=== PATIENT | female | born 1965 | race African-American/Black ===

== ENCOUNTER 2019-09-03 14:21 | Emergency (ER) | payer SELFPAY ==
[~2019-09-03] VITALS: Ht 160 cm; Wt 82.0 kg
[2019-09-03] MEDS ORDERED: fentaNYL INJECTION 100 MCG/2 ML AMP IVP STA (14:42)
[2019-09-03] MEDS ORDERED: HYDROcodone/APAP 7.5 MG/325 MG (LORTAB, LORCET PLUS) TABLET PO STA (14:50)
[2019-09-03 14:55] VITALS: BP 156/75
--- NOTE | 2019-09-03 15:01 | ED Chest Pain ---
General Chief Complaint: Chest Pain Stated Complaint: CHEST PAIN Source: patient, EMS Exam Limitations: no limitations History of Present Illness Date Seen by Provider: Sep 03, 2019 Time Seen by Provider: 14:22 Initial Comments Here with report of reproducible anterior chest wall pain that has been going on for a few hours. Arrives by EMS. Apparently it has been getting progressively worse and unrelenting. States that she's been going through a lot of stressors. She just moved here from [place] and she has the additional stressor that she is unable to get all of her meds refilled. She was able to get the medical coverage meds filled but her pain meds including gabapentin and hydrocodone are left on filled until her records are received and approved. Does have history of atrial fibrillation and is on Xarelto and does have that. Currently not in atrial fibrillation. Timing/Duration: 4-6 hours, getting worse Severity/Quality: moderate Location: central Radiation: shoulders, epigastric Activities at Onset: emotional stress Prior CP/Workup: other (workup for atrial fibrillation at outside facility) Modifying Factors: improves with rest ASA po EP TECH: Yes NTG SL EP TECH: No Associated Symptoms: No abdominal pain; back pain, fatigue; No fever/chills, No nausea/vomiting, No shortness of breath Allergies and Home Medications Allergies Coded Allergies: morphine (Verified Allergy, Unknown, 09/03/19) tramadol (Verified Allergy, Unknown, 09/03/19) Patient Home Medication List Home Medication List Reviewed: Yes Review of Systems Review of Systems Constitutional: see HPI; No chills, No fever EENTM: No Symptoms Reported Respiratory: No Symptoms Reported Cardiovascular: See HPI, Chest Pain; Denies Edema Gastrointestinal: Denies Diarrhea, Denies Vomiting Genitourinary: No Symptoms Reported Musculoskeletal: see HPI, back pain, muscle pain, neck pain Skin: no symptoms reported Psychiatric/Neurological: Anxiety; Denies Headache All Other Systems Reviewed Negative Unless Noted: Yes Past Wbegbal-Gquxzy-Fabxkb Hx Past Med/Social Hx: Reviewed Nursing Past Med/Soc Hx Patient Social History Alcohol Use: Denies Use Recreational Drug Use: No Smoking Status: Current Everyday Smoker Past Medical History Surgeries: Yes Abdominal, Orthopedic Respiratory: No Cardiac: Yes Hypertension, Irregular Heartbeat Gastrointestinal: Yes Psychosocial: Yes Family Medical History Reviewed Nursing Family Hx Physical Exam Vital Signs Vital Signs - First Documented 09/03/19 14:55 Temp 36.7 Pulse 70 Resp 16 B/P (MAP) 156/75 (102) Pulse Ox 100 Capillary Refill : Height, Weight, BMI Height: '" Weight: lbs. oz. kg; BMI Method: General Appearance: WD/WN, Anxious HEENT: PERRL/EOMI, Pharynx Normal Neck: Normal Inspection, Non Tender Respiratory: Lungs Clear, Normal Breath Sounds, Other (reproducible anterior chest wall pain) Cardiovascular: Regular Rate, Rhythm, No Murmur Gastrointestinal: Non Tender, Soft Extremity: Normal Range of Motion, Non Tender Neurologic/Psychiatric: Alert, Oriented x3 Skin: Normal Color, Warm/Dry Progress/Results/Core Measures Results/Orders Lab Results Laboratory Tests Test 09/03/19 15:15 Range/Units White Blood Count 6.0 4.3-11.0 10^3/uL Red Blood Count 4.11 L 4.35-5.85 10^6/uL Hemoglobin 12.4 11.5-16.0 G/DL Hematocrit 38 35-52 % Mean Corpuscular Volume 93 80-99 FL Mean Corpuscular Hemoglobin 30 25-34 PG Mean Corpuscular Hemoglobin Concent 33 32-36 G/DL Red Cell Distribution Width 14.0 10.0-14.5 % Platelet Count 268 130-400 10^3/uL Mean Platelet Volume 10.6 H 7.4-10.4 FL Neutrophils (%) (Auto) 31 L 42-75 % Lymphocytes (%) (Auto) 56 H 12-44 % Monocytes (%) (Auto) 9 0-12 % Eosinophils (%) (Auto) 3 0-10 % Basophils (%) (Auto) 1 0-10 % Neutrophils # (Auto) 1.9 1.8-7.8 X 10^3 Lymphocytes # (Auto) 3.3 1.0-4.0 X 10^3 Monocytes # (Auto) 0.6 0.0-1.0 X 10^3 Eosinophils # (Auto) 0.2 0.0-0.3 10^3/uL Basophils # (Auto) 0.0 0.0-0.1 10^3/uL Prothrombin Time 15.0 H 12.2-14.7 SEC INR Comment 1.1 0.8-1.4 Activated Partial Thromboplast Time 35 24-35 SEC Sodium Level 141 135-145 MMOL/L Potassium Level 2.9 L 3.6-5.0 MMOL/L Chloride Level 106 98-107 MMOL/L Carbon Dioxide Level 27 21-32 MMOL/L Anion Gap 8 5-14 MMOL/L Blood Urea Nitrogen 8 7-18 MG/DL Creatinine 0.77 0.60-1.30 MG/DL Estimat Glomerular Filtration Rate > 60 BUN/Creatinine Ratio 10 Glucose Level 96 70-105 MG/DL Calcium Level 8.8 8.5-10.1 MG/DL Corrected Calcium 8.9 8.5-10.1 MG/DL Magnesium Level 1.9 1.6-2.4 MG/DL Total Bilirubin 0.5 0.1-1.0 MG/DL Aspartate Amino Transf (AST/SGOT) 13 5-34 U/L Alanine Aminotransferase (ALT/SGPT) 12 0-55 U/L Alkaline Phosphatase 106 40-136 U/L Myoglobin 23.4 10.0-92.0 NG/ML Troponin I < 0.028 <0.028 NG/ML Total Protein 6.3 L 6.4-8.2 GM/DL Albumin 3.9 3.2-4.5 GM/DL My Orders Orders - NAHUN BOWEN MD Cbc With Automated Diff (09/03/19 14:41) Magnesium (09/03/19 14:41) Chest 1 View, Ap/Pa Only (09/03/19 14:41) Ekg Tracing (09/03/19 14:41) Cardiac Profile 1 (09/03/19 14:41) Comprehensive Metabolic Panel (09/03/19 14:41) Myoglobin Serum (09/03/19 14:41) Protime With Inr (09/03/19 14:41) Partial Thromboplastin Time (09/03/19 14:41) O2 (09/03/19 14:41) Monitor-Rhythm Ecg Trace Only (09/03/19 14:41) Lipid Panel (09/04/19 06:00) Ed Iv/Invasive Line Start (09/03/19 14:41) Hydrocodone/Apap 7.5/325 Tab (Lortab 7. (09/03/19 14:50) Vital Signs/I&O 09/03/19 14:55 Temp 36.7 Pulse 70 Resp 16 B/P (MAP) 156/75 (102) Pulse Ox 100 Progress Progress Note : Progress Note Seen and evaluated. IV, labs, EKG and chest x-ray ordered. Patient did receive aspirin via EMS. Fentanyl 50 g IV ordered. Monitor patient. 1500: Unable to get IV access so we will go ahead and just do blood draw. Patient does not want to attempt further IV access at this point. Hydrocodone 7.5 one tab by mouth given. Monitor patient. 1711: No acute findings. Patient is much better after the hydrocodone. Discharged home with return precautions. Patient verbalize understanding instructions and agreement with plan. Initial ECG Impression Date: Sep 03, 2019 Initial ECG Impression Time: 14:49 Initial ECG Rate: 62 Initial ECG Rhythm: Normal Sinus Initial ECG Comparisson: No Previous ECG Available Comment Sinus rhythm with PVC. No evidence of ST elevation NE. Normal axis. Interpreted by me. Diagnostic Imaging Diagonstic Imaging: Xray Plain Films/CT/US/NM/MRI: chest Comments NAME: YUMI SQUIRES [facility] REC#: [id number] PT STATUS: REG ER : 1965 PHYSICIAN: NAHUN BOWEN MD ADMIT DATE: 09/03/19/ER Signed Date of Exam: 09/03/19 CHEST 1 VIEW, AP/PA ONLY EXAMINATION: Portable erect AP chest at 3:02 p.m. INDICATION: Chest pain. COMPARISON: There are no prior studies available for comparison. FINDINGS: The heart is enlarged. The central pulmonary vascularity is somewhat prominent, but there is no evidence of overt failure or pneumonia. There is no significant pleural effusion identified. The mediastinum is not widened. The osseous structures are intact. The distal right clavicle has been resected previously. IMPRESSION: There is cardiomegaly, but there is no evidence for an acute cardiopulmonary abnormality. Dictated by: Dictated on workstation # [id number] Dict: 09/03/19 1510 Trans: 09/03/198 Interpreted by: SHYANN PRECIADO MD Electronically signed by: SHYANN PRECIADO MD 09/03/19 3768 Departure Impression Primary Impression: Chest pain Qualified Codes: R07.9 - Chest pain, unspecified Additional Impression: Back pain Qualified Codes: M54.5 - Low back pain; G89.29 - Other chronic pain Disposition: 01 HOME, SELF-CARE Condition: Stable Departure-Patient Inst. Decision time for Depature: 17:12 Referrals: [facility] Patient Instructions: Chest Pain (DC), Low Back Pain (DC) Add. Discharge Instructions: All discharge instructions reviewed with patient and/or family. Voiced understanding. Take medications as directed. It is very important that you obtain local physician and prescriptions. You may take ibuprofen 600 mg every 8 hours as needed for pain as well as she can tolerate that. If you're not taking the prescribed pain medicine, you may take Tylenol/acetaminophen 1000 mg every 8 hours as needed for pain. Return for worse pain, fever, vomiting, weakness, breathing problems or other concerns as needed. Scripts Hydrocodone Bit/Acetaminophen (LORTAB 7.5 MG TABLET) 1 Ea Tablet 1 EACH PO Q6H, #12 TAB 0 Refills Prov: NAHUN BOWEN MD 09/03/19 NAHUN BOWEN MD Sep 03, 2019 15:01
--- NOTE | 2019-09-03 15:15 | Diagnostic Imaging Report ---
EXAMINATION: Portable erect AP chest at 3:02 p.m. INDICATION: Chest pain. COMPARISON: There are no prior studies available for comparison. FINDINGS: The heart is enlarged. The central pulmonary vascularity is somewhat prominent, but there is no evidence of overt failure or pneumonia. There is no significant pleural effusion identified. The mediastinum is not widened. The osseous structures are intact. The distal right clavicle has been resected previously. IMPRESSION: There is cardiomegaly, but there is no evidence for an acute cardiopulmonary abnormality. Dictated by: Dictated on workstation # [id number]
[2019-09-03 15:33] LABS: BASOPHILS % (AUTO) 1 % (0-10); EOSINOPHILS # (AUTO) 0.2 10^3/uL (0.0-0.3); EOSINOPHILS % (AUTO) 3 % (0-10); HEMATOCRIT 38 % (35-52); HEMOGLOBIN 12.4 G/DL (11.5-16.0); LYMPHOCYTES # (AUTO) 3.3 X 10^3 (1.0-4.0); LYMPHOCYTES % (AUTO) 56 % (12-44); MEAN CORPUSCULAR HEMOGLOBIN 30 PG (25-34); MEAN CORPUSCULAR HGB CONC 33 G/DL (32-36); MEAN CORPUSCULAR VOLUME 93 FL (80-99); MEAN PLATELET VOLUME 10.6 FL (7.4-10.4); MONOCYTES # (AUTO) 0.6 X 10^3 (0.0-1.0); MONOCYTES % (AUTO) 9 % (0-12); NEUTROPHILS # (AUTO) 1.9 X 10^3 (1.8-7.8); NEUTROPHILS % (AUTO) 31 % (42-75); PLATELET COUNT 268 10^3/uL (130-400)
[2019-09-03 15:48] LABS: INR 1.1 (0.8-1.4)
[2019-09-03 15:53] LABS: ALANINE AMINOTRANSFERASE 12 U/L (0-55); ALBUMIN 3.9 GM/DL (3.2-4.5); ALKALINE PHOSPHATASE 106 U/L (40-136); BILIRUBIN,TOTAL 0.5 MG/DL (0.1-1.0); BUN/CREATININE RATIO 10; CALCIUM 8.8 MG/DL (8.5-10.1); CARBON DIOXIDE 27 MMOL/L (21-32); CHLORIDE 106 MMOL/L (98-107); CREATININE SERUM 0.77 MG/DL (0.60-1.30); GFR ESTIMATED > 60; GLUCOSE 96 MG/DL (70-105); MAGNESIUM 1.9 MG/DL (1.6-2.4); POTASSIUM 2.9 MMOL/L (3.6-5.0); SODIUM 141 MMOL/L (135-145); TOTAL PROTEIN 6.3 GM/DL (6.4-8.2)
[2019-09-03] MEDS ORDERED: HYDR-34 PO (17:19)
== END 2019-09-03 17:28 | disposition home or self-care (01) ==
LOC: ER 14:23
DX: R07.89 Other chest pain (principal); M54.5 Low back pain; I48.91 Unspecified atrial fibrillation; I10 Essential (primary) hypertension; F17.200 Nicotine dependence, unspecified, uncomplicated; Z79.01 Long term (current) use of anticoagulants; Z88.5 Allergy status to narcotic agent
CPT/HCPCS: 36415; 71045; 80053; 83735; 83874; 84484; 85025; 85610; 85730; 93005; 93041

== ENCOUNTER → 2019-10-04 | Outpatient (CLI) | payer MEDICARE, MEDICAID ==
[~2019-10-04] MED LIST: HYDR-34 PO
== END ==
LOC: EDBD → CARD 12:49
PROVIDERS: ATTEND Nurse Practitioner Primary Care
DX: I51.7 Cardiomegaly (principal); I34.0 Nonrheumatic mitral (valve) insufficiency; I48.0 Paroxysmal atrial fibrillation; I10 Essential (primary) hypertension
CPT/HCPCS: 93306

== ENCOUNTER → 2019-12-31 | Outpatient (CLI) | payer MEDICAID, MEDICARE ==
[~2019-12-31] VITALS: Ht 161 cm; Wt 83.0 kg
[~2019-12-31] MED LIST changes: +AMIT25TA9 PO; +AMLO10TA7 PO; +ASPI-983 PO; +CARB10DR5 OU; +CATHETER FLUSH 10 ML SYR IV PRN; +CLIN300C11 PO; +DULO30CA49 PO; +GABA-488 PO; +HYDR-3816 PO; +ISOS30TA3 PO; +METH5TAB5 PO; +REGADENOSON 0.4 MG/5 ML SYR (LEXISCAN) IV ONE; +RIVA20TA PO; +ROSU5TAB13 PO
--- NOTE | 2020-01-02 19:07 | STRESS TEST ---
DATE OF SERVICE: 12/31/2019 RESTING AND POST REGADENOSON TECHNETIUM-99M TETROFOSMIN SPECT CT IMAGING ORDERING PHYSICIAN: Dr. Lopez. PRIMARY PHYSICIAN: [facility]. CLINICAL DIAGNOSES: Shortness of breath, chest discomfort. Baseline images were carried out after injection of 10.38 mCi of technetium-99m Tetrofosmin. This was followed by 0.4 mg regadenoson and 28.7 mCi of technetium-99m Tetrofosmin for stress imaging. The electrocardiogram showed sinus rhythm at baseline. It did not change significantly with regadenoson infusion. The patient tolerated the procedure well. Review of images at rest and following stress indicate breast attenuation artifact both at rest and following regadenoson infusion. In addition, there appears to be a minimal transient apical perfusion defect. Gated images show normal global left ventricular systolic function, normal regional wall motion. Left ventricular ejection fraction is calculated to be 72%. Left ventricular end diastolic volume 63 mL. TID is absent (1.02). CONCLUSIONS: 1. This study suggests a minimal amount of apical ischemia. 2. Normal regional wall motion. 3. Normal global left ventricular systolic function with ejection fraction of 72%. Job ID: [id number] DocumentID: [id number] Dictated Date: 01/02/2020 17:21:48 Manager Agency Date: 01/02/2020 19:06:58 Dictated By: JOCELYN LOPEZ MD, MA, FACP, FACC, MTDD
== END ==
LOC: CARD 06:50
PROVIDERS: ATTEND Internal Medicine Cardiovascular Disease
DX: I10 Essential (primary) hypertension (principal); G51.0 Bell's palsy; Z72.0 Tobacco use; R06.02 Shortness of breath; R07.89 Other chest pain
CPT/HCPCS: 78452; 93017; 93225; 93226

== ENCOUNTER 2020-01-03 02:05 | Inpatient (IN) | payer MEDICARE, MEDICAID ==
[2020-01-03] VITALS (7 sets, daily range): BP systolic 141–193; BP diastolic 66–90
[~2020-01-03] VITALS: Ht 160 cm; Wt 91.4 kg
[~2020-01-03 02:05] MED LIST changes: -AMIT25TA9 PO; -AMLO10TA7 PO; -ASPI-983 PO; -CARB10DR5 OU; -CATHETER FLUSH 10 ML SYR IV PRN; -CLIN300C11 PO; -DULO30CA49 PO; -GABA-488 PO; -HYDR-3816 PO; -ISOS30TA3 PO; -METH5TAB5 PO; -REGADENOSON 0.4 MG/5 ML SYR (LEXISCAN) IV ONE; -RIVA20TA PO; -ROSU5TAB13 PO
[2020-01-03] MEDS ORDERED: NS IV 1000 ML 1,000 ML IV SCH (02:15)
[2020-01-03] MEDS ORDERED: fentaNYL INJECTION 100 MCG/2 ML AMP IVP ONE ×2 (02:15→03:00)
--- NOTE | 2020-01-03 02:24 | ED Abdominal Pain ---
General Chief Complaint: Abdominal/GI Problems Stated Complaint: ABD PAIN Source of Information: Patient, EMS Exam Limitations: No Limitations History of Present Illness Date Seen by Provider: Jan 03, 2020 Time Seen by Provider: 02:03 Initial Comments The patient does present to the ER by EMS with chief complaint that about 10:00 last night she started to experience some pain on her left side but all over in her abdomen. She is not having any back or flank pain that is new. She says she is not been a little bowel movement for the past 2 or 3 days so she took some MiraLAX and says she feels like her guts are boiling but she has not been able to pass anything. She does have a history of hysterectomy, appendectomy, cholecystectomy and a laparoscopic adhesiolysis. She denies a history of bowel obstruction. She's not having any fevers or chills. She had some nausea earlier but none presently. EMS did not give her anything for pain or nausea. She says her pain right now is about a 9 out of 10. And worse with movement. She has a history of 2 heart attacks but no stents. She's not on blood thinners. Allergies and Home Medications Allergies Coded Allergies: morphine (Verified Allergy, Unknown, 09/03/19) tramadol (Verified Allergy, Unknown, 09/03/19) Home Medications Hydrocodone Bit/Acetaminophen 1 Ea Tablet, 1 EACH PO Q6H Prescribed by: NAHUN BOWEN on 09/03/19 5599 Patient Home Medication List Home Medication List Reviewed: Yes Review of Systems Review of Systems Constitutional: No chills, No diaphoresis EENTM: No Blurred Vision, No Double Vision Respiratory: Denies Cough, Denies Shortness of Air Cardiovascular: Denies Chest Pain, Denies Edema Gastrointestinal: See HPI, Abdominal Pain; Denies Constipated, Denies Diarrhea Genitourinary: Denies Burning, Denies Discharge Musculoskeletal: No back pain, No joint pain Skin: No pruritus, No rash Psychiatric/Neurological: Denies Headache, Denies Numbness, Denies Paresthesia All Other Systems Reviewed Negative Unless Noted: Yes Past Hkreqey-Cxfwvn-Pugwfk Hx Patient Social History Alcohol Use: Denies Use Recreational Drug Use: No Smoking Status: Current Everyday Smoker Type Used: Cigarettes Recent Foreign Travel: No Contact w/Someone Who Travel: No Recent Hopitalizations: No Physical Abuse: No Sexual Abuse: No Mistreated: No Fear: No Immunizations Up To Date Tetanus Booster (TDap): Unknown Seasonal Allergies Seasonal Allergies: No Past Medical History Surgeries: Yes Abdominal, Orthopedic, Tubal Ligation Respiratory: No Cardiac: Yes Atrial Fibrillation, Hypertension, Irregular Heartbeat Neurological: Yes (bells palsy) 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 oz. kg; 32.02 BMI Method: General Appearance: WD/WN, no apparent distress HEENT: PERRL/EOMI, pharynx normal Neck: full range of motion, supple, normal inspection Respiratory: lungs clear, normal breath sounds, no respiratory distress, no accessory muscle use Cardiovascular: normal peripheral pulses, regular rate, rhythm Peripheral Pulses: 2+ Radial Pulses (R), 2+ Radial Pulses (L) Gastrointestinal: normal bowel sounds, guarding; No rebound; tenderness, other (mesenteric signs) Extremities: normal inspection, no pedal edema, normal capillary refill Back: normal inspection, no vertebral tenderness, CVA tenderness (R), CVA tenderness (L) Neurologic/Psychiatric: alert, normal mood/affect, oriented x 3 Skin: normal color, warm/dry Focused Exam Lactate Level 01/03/20 02:45: Lactic Acid Level 0.91 Lactic Acid Level Laboratory Tests Test 01/03/20 02:45 Lactic Acid Level 0.91 MMOL/L (0.50-2.00) Progress/Results/Core Measures Results/Orders Lab Results Laboratory Tests Test 01/03/20 02:16 01/03/20 02:45 Range/Units Urine Color YELLOW Urine Clarity CLEAR Urine pH 6.0 5-9 Urine Specific [place] 1.020 1.016-1.022 Urine Protein NEGATIVE NEGATIVE Urine Glucose (UA) NEGATIVE NEGATIVE Urine Ketones NEGATIVE NEGATIVE Urine Nitrite NEGATIVE NEGATIVE Urine Bilirubin NEGATIVE NEGATIVE Urine Urobilinogen 0.2 < = 1.0 MG/DL Urine Leukocyte Esterase NEGATIVE NEGATIVE Urine RBC (Auto) TRACE-I NEGATIVE Urine RBC 0-2 /HPF Urine WBC NONE /HPF Urine Squamous Epithelial Cells 0-2 /HPF Urine Crystals NONE /LPF Urine Bacteria NEGATIVE /HPF Urine Casts NONE /LPF Urine Mucus MODERATE H /LPF Urine Culture Indicated NO White Blood Count 8.2 4.3-11.0 10^3/uL Red Blood Count 4.45 4.35-5.85 10^6/uL Hemoglobin 13.3 11.5-16.0 G/DL Hematocrit 40 35-52 % Mean Corpuscular Volume 90 80-99 FL Mean Corpuscular Hemoglobin 30 25-34 PG Mean Corpuscular Hemoglobin Concent 33 32-36 G/DL Red Cell Distribution Width 15.2 H 10.0-14.5 % Platelet Count 287 130-400 10^3/uL Mean Platelet Volume 10.1 7.4-10.4 FL Neutrophils (%) (Auto) 57 42-75 % Lymphocytes (%) (Auto) 31 12-44 % Monocytes (%) (Auto) 9 0-12 % Eosinophils (%) (Auto) 3 0-10 % Basophils (%) (Auto) 0 0-10 % Neutrophils # (Auto) 4.7 1.8-7.8 X 10^3 Lymphocytes # (Auto) 2.6 1.0-4.0 X 10^3 Monocytes # (Auto) 0.7 0.0-1.0 X 10^3 Eosinophils # (Auto) 0.2 0.0-0.3 10^3/uL Basophils # (Auto) 0.0 0.0-0.1 10^3/uL Sodium Level 139 135-145 MMOL/L Potassium Level 3.7 3.6-5.0 MMOL/L Chloride Level 106 98-107 MMOL/L Carbon Dioxide Level 20 L 21-32 MMOL/L Anion Gap 13 5-14 MMOL/L Blood Urea Nitrogen 14 7-18 MG/DL Creatinine 0.86 0.60-1.30 MG/DL Estimat Glomerular Filtration Rate > 60 BUN/Creatinine Ratio 16 Glucose Level 121 H 70-105 MG/DL Lactic Acid Level 0.91 0.50-2.00 MMOL/L Calcium Level 9.4 8.5-10.1 MG/DL Corrected Calcium 9.0 8.5-10.1 MG/DL Total Bilirubin 0.5 0.1-1.0 MG/DL Aspartate Amino Transf (AST/SGOT) 11 5-34 U/L Alanine Aminotransferase (ALT/SGPT) 10 0-55 U/L Alkaline Phosphatase 114 40-136 U/L Total Protein 7.4 6.4-8.2 GM/DL Albumin 4.5 3.2-4.5 GM/DL Lipase 76 8-78 U/L My Orders Orders - JANES OSHEA Ct Abdomen/Pelvis W (01/03/20 02:15) Ed Iv/Invasive Line Start (01/03/20 02:15) Ns Iv 1000 Ml (Sodium Chloride 0.9%) (01/03/20 02:15) Fentanyl Injection (Sublimaze Injection (01/03/20 02:15) Cbc With Automated Diff (01/03/20 02:15) Comprehensive Metabolic Panel (01/03/20 02:15) Lipase (01/03/20 02:15) Ua Culture If Indicated (01/03/20 02:15) Hyoscyamine Sl Tablet (Levsin Sl Tablet) (01/03/20 02:45) Fentanyl Injection (Sublimaze Injection (01/03/20 03:00) Lactic Acid Analyzer (01/03/20 03:00) Medications Given in ED Current Medications Medications Dose Ordered Sig/Willian Route Start Time Stop Time Status Last Admin Dose Admin Fentanyl Citrate 50 mcg ONCE ONCE IVP 01/03/20 02:15 01/03/20 02:18 DC 01/03/20 02:48 50 MCG Fentanyl Citrate 100 mcg ONCE ONCE IVP 01/03/20 03:00 01/03/20 03:01 DC 01/03/20 03:03 100 MCG Hyoscyamine Sulfate 0.125 mg ONCE ONCE PO 01/03/20 02:45 01/03/20 02:46 DC 01/03/20 02:44 0.125 MG Vital Signs/I&O 01/03/20 02:12 Temp 37.2 Pulse 62 Resp 20 B/P (MAP) 128/68 (88) Pulse Ox 99 O2 Delivery Room Air Progress Progress Note : Time: 02:27 Progress Note 50 g of fentanyl, a liter fluids and a CT with IV contrast if possible. Labs to include lipase and a urinalysis. Diagnostic Imaging Diagonstic Imaging: CT (with IV contrast) Plain Films/CT/US/NM/MRI: abdomen, pelvis Comments Abnormal small bowel in the lower abdomen and upper pelvis suspicious for a developing obstruction. There is a small bowel loop demonstrating feculent appearing material closely applied to the anterior abdominal wall in the infraumbilical abdomen. In this region there is calcification along the midline of the abdominal wall. The patient is post hysterectomy. The findings could represent adhesions. Diverticulosis without diverticulitis. Reviewed: [facility] Reviewed by Me Departure Communication (Admissions) Time/Spoke to Admitting Phy: 04:50 Discussed the case and imaging with Dr. Elkins and she agrees to admit the patient with Dr. Espino, General Surgery consultation. Time/Spoke to Consulting Phy: 04:55 Discussed case and imaging with Dr. Espino and he agrees to consult on the patient. Impression Primary Impression: Small bowel obstruction due to adhesions Disposition: ADMITTED INPATIENT Condition: Stable Admissions Decision to Admit Reason: Admit from ER (General) Decision to Admit/Date: Jan 03, 2020 Time/Decision to Admit Time: 04:40 Departure-Patient Inst. Referrals: [facility] (PCP) Primary Care Physician MERON ZEPEDA APRN (Family) Primary Care Physician JANES OSHEA Jan 03, 2020 02:24
[2020-01-03 02:32] LABS: BILIRUBIN,URINE NEGATIVE (NEGATIVE); CLARITY,URINE CLEAR; COLOR,URINE YELLOW; GLUCOSE, URINE (UA) NEGATIVE (NEGATIVE); KETONES,URINE NEGATIVE (NEGATIVE); LEUKOCYTE ESTERASE ,URINE NEGATIVE (NEGATIVE); NITRITE,URINE NEGATIVE (NEGATIVE); PROTEIN,URINE NEGATIVE (NEGATIVE)
[2020-01-03 02:41] LABS: RBC,URINE 0-2 /HPF
[2020-01-03 02:42] LABS: BACTERIA,URINE NEGATIVE /HPF; SQUAMOUS EPITHELIAL CELL,UR 0-2 /HPF
[2020-01-03] MEDS ORDERED: HYOSCYAMINE 0.125 MG (LEVSIN) TAB PO ONE (02:45)
[2020-01-03 02:58] LABS: BASOPHILS % (AUTO) 0 % (0-10); EOSINOPHILS # (AUTO) 0.2 10^3/uL (0.0-0.3); EOSINOPHILS % (AUTO) 3 % (0-10); HEMATOCRIT 40 % (35-52); HEMOGLOBIN 13.3 G/DL (11.5-16.0); LYMPHOCYTES # (AUTO) 2.6 X 10^3 (1.0-4.0); LYMPHOCYTES % (AUTO) 31 % (12-44); MEAN CORPUSCULAR HEMOGLOBIN 30 PG (25-34); MEAN CORPUSCULAR HGB CONC 33 G/DL (32-36); MEAN CORPUSCULAR VOLUME 90 FL (80-99); MEAN PLATELET VOLUME 10.1 FL (7.4-10.4); MONOCYTES # (AUTO) 0.7 X 10^3 (0.0-1.0); MONOCYTES % (AUTO) 9 % (0-12); NEUTROPHILS # (AUTO) 4.7 X 10^3 (1.8-7.8); NEUTROPHILS % (AUTO) 57 % (42-75); PLATELET COUNT 287 10^3/uL (130-400); RED CELL DISTRIBUTION WIDTH 15.2 % (10.0-14.5); WHITE BLOOD COUNT 8.2 10^3/uL (4.3-11.0)
[2020-01-03 03:19] LABS: ALANINE AMINOTRANSFERASE 10 U/L (0-55); ALBUMIN 4.5 GM/DL (3.2-4.5); ALKALINE PHOSPHATASE 114 U/L (40-136); BILIRUBIN,TOTAL 0.5 MG/DL (0.1-1.0); BUN/CREATININE RATIO 16; CALCIUM 9.4 MG/DL (8.5-10.1); CARBON DIOXIDE 20 MMOL/L (21-32); CHLORIDE 106 MMOL/L (98-107); CREATININE SERUM 0.86 MG/DL (0.60-1.30); GFR ESTIMATED > 60; GLUCOSE 121 MG/DL (70-105); LIPASE 76 U/L (8-78); POTASSIUM 3.7 MMOL/L (3.6-5.0); SODIUM 139 MMOL/L (135-145); TOTAL PROTEIN 7.4 GM/DL (6.4-8.2)
[2020-01-03] MEDS ORDERED: HYDROmorphone 2 MG/ML VIAL (DILAUDID) IV ONE (05:00)
--- NOTE | 2020-01-03 05:20 | NUR ---
YUMI SQUIRES admitted to room 431-1, with an admitting diagnosis of small bowel obstruction, on 01/03/20 from ER via bed, accompanied by er staff. YUMI SQUIRES introduced to surroundings, call light, bed controls, phone, TV, temperature control, lights, meal times, smoking policy, visitor policy, side rail policy, bathrooms and showers. Patient Rights given to patient in the handbook. YUMI SQUIRES verbalizes understanding that [facility] is not responsible for the loss or damage to any personal effects or valuables that are kept in the patients possession during their hospitalization.
[2020-01-03] MEDS ORDERED: 1/2 NS W/KCL 20 MEQ/L 1,000 ML IV ONE (05:30)
[2020-01-03] MEDS: 1/2 NS W/KCL 20 MEQ/L 1,000 ML IV SCH ×4 (05:40→22:42)
[2020-01-03] MEDS ORDERED: fentaNYL INJECTION 100 MCG/2 ML AMP IV PRN ×2 (06:15)
--- NOTE | 2020-01-03 06:44 | Diagnostic Imaging Report ---
PROCEDURE: CT abdomen and pelvis with contrast. TECHNIQUE: Multiple contiguous axial images were obtained through the abdomen and pelvis after administration of intravenous contrast. Auto Exposure Controls were utilized during the CT exam to meet ALARA standards for radiation dose reduction. All CT scans use one or more of the following dose optimizing techniques: automated exposure control, MA and/or KvP adjustment based on a patient size and exam type, or iterative reconstruction. INDICATION: Abdominal pain. COMPARISON: None. FINDINGS: Lung bases are clear. The gallbladder is nonvisualized and presumed surgically absent. Otherwise, solid organs and vascular structures are unremarkable. Dilated small bowel loops are seen within the left mid abdomen and pelvis containing air-fluid levels. The distal small bowel is decompressed. There is likely a transition point in the region of the pelvis, possibly from adhesions. There is no free air or free fluid. There is mild constipation throughout the colon without overt obstruction. Diverticulosis of sigmoid colon is present without diverticulitis. The urinary bladder is unremarkable. The uterus is surgically absent. There is no abscess. Osseous structures are age-appropriate. IMPRESSION: 1. Early small bowel obstruction with transition point likely within the pelvis. The uterus is surgically absent. 2. Diverticulosis of sigmoid colon without diverticulitis. 3. No free air, free fluid or abscess. Agree with preliminary report. Dictated by: Dictated on workstation # [id number]
[2020-01-03] MEDS: ONDANSETRON 4 MG/2 ML (SDV) Z0FRAN IV PRN ×3 (08:36→19:54)
[2020-01-03] MEDS: PANTOPRAZOLE 40 MG (PROTONIX) VIAL IV SCH (08:36)
[2020-01-03] MEDS ORDERED: ENOXAPARIN 40 MG/0.4 ML (LOVENOX) SYR SC SCH (09:00)
--- NOTE | 2020-01-03 09:21 | Consultation - Surgery ---
[facility] 01/03/20 0921: History of Present Illness History of Present Illness Patient Consulted On(chelsey/time) 01/03/20 09:15 Date Seen by Provider: Jan 03, 2020 Time Seen by Provider: 07:30 History of Present Illness CC: Abdominal Pain HPI: 64 yo female presented to the ED with increase in abdominal pain. Patient stated that she had similar symptoms 15 to 17 years ago and was diagnosed with Bowel obstruction secondary to adhesions. Pain started around 2200 last night in the lower quadrants. The pain is now located in the lower quadrants and the umbilicus. Describes the pain as sharp and aching. Comes and goes, Gets better with pain medication, but is worse with movement. Also has nausea. States that she had a small bowel movement yesterday. Allergies and Home Medications Allergies Coded Allergies: morphine (Verified Allergy, Unknown, 09/03/19) tramadol (Verified Allergy, Unknown, 09/03/19) Patient Home Medication List Home Medication List Reviewed: Yes (States she has a list in her wallet that has all her medications) Past Qlnfjgt-Uuyxyv-Rpfgmt Hx Patient Social History Alcohol Use: Denies Use Recreational Drug Use: No Smoking Status: Current Everyday Smoker (1/2 ppd) Type Used: Cigarettes Recent Foreign Travel: No Contact w/Someone Who Travel: No Recent Infectious Disease Expo: No Recent Hopitalizations: No Immunizations Up To Date Tetanus Booster (TDap): Unknown Date of Influenza Vaccine: Aug 10, 2019 Seasonal Allergies Seasonal Allergies: No Surgeries History of Surgeries: Yes Surgeries: Abdominal (states gallbladder and appendix were removed), 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 (partial hysterecctomy), Tubal Ligation Respiratory History of Respiratory Disorde: No Cardiovascular History of Cardiac Disorders: Yes Cardiac Disorders: Atrial Fibrillation, Heart Attack, Hypertension, Irregular Heartbeat Neurological History of Neurological Disord: 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) Neurological Disorders: Neuropathy Reproductive System : No [place] [facility] History: Tubal Ligation, Menopausal Genitourinary History of Genitourinary Disor: No Gastrointestinal History of Gastrointestinal Di: Yes (SBO 15 years ago) Musculoskeletal History of Musculoskeletal Dis: Yes Musculoskeletal Disorders: Rheumatoid Arthritis, Chronic Back Pain Endocrine History of Endocrine Disorders: Yes Endocrine Disorders: Hypothyroidsim HEENT History of HEENT Disorders: No Cancer History of Cancer: No Integumentary History of Skin or Integumenta: Yes (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 Does not know father) Family Medial History: Diabetes mellitus 19 MOTHER FH: heart disease 19 MOTHER Review of Systems-General Constitutional: chills; No fever EENTM: No ear pain, No eye pain, No throat pain Respiratory: cough, phlegm; No short of breath Cardiovascular: No chest pain, No palpitations Gastrointestinal: abdominal pain, constipation, nausea; No vomiting Genitourinary: No dysuria, No frequency Musculoskeletal: back pain, joint pain (Hands and KNees) Skin: No hx of skin cancer, No rash Psychiatric/Neurological: Numbness (In extremeties), Tingling (in extremities) Other No History of bruising or bleeding Physical Exam-General Problems Physical Exam Vital Signs Vital Signs - First Documented 01/03/20 02:12 Temp 37.2 Pulse 62 Resp 20 B/P (MAP) 128/68 (88) Pulse Ox 99 O2 Delivery Room Air Capillary Refill : Less Than 3 Seconds General Appearance: mild distress, obese Respiratory: chest non-tender, lungs clear, no respiratory distress, no accessory muscle use, decreased breath sounds Cardiovascular: regular rate, rhythm, no murmur Peripheral Pulses: 2+ Radial Pulses (R), 2+ Radial Pulses (L) Gastrointestinal: No soft; distended, guarding, tenderness (midline) Extremities: no pedal edema, no calf tenderness Neurologic/Psychiatric: alert, oriented x 3 Skin: normal color, warm/dry Data Review Labs Laboratory Tests 01/03/20 02:16: Urine Color YELLOW, Urine Clarity CLEAR, Urine pH 6.0, Urine Specific [place] 1.020, Urine Protein NEGATIVE, Urine Glucose (UA) NEGATIVE, Urine Ketones NEGATIVE, Urine Nitrite NEGATIVE, Urine Bilirubin NEGATIVE, Urine Urobilinogen 0.2, Urine Leukocyte Esterase NEGATIVE, Urine RBC (Auto) TRACE-I, Urine RBC 0-2, Urine WBC NONE, Urine Squamous Epithelial Cells 0-2, Urine Crystals NONE, Urine Bacteria NEGATIVE, Urine Casts NONE, Urine Mucus MODERATEH, Urine Culture Indicated NO 01/03/20 02:45: White Blood Count 8.2, Red Blood Count 4.45, Hemoglobin 13.3, Hematocrit 40, Mean Corpuscular Volume 90, Mean Corpuscular Hemoglobin 30, Mean Corpuscular Hemoglobin Concent 33, Red Cell Distribution Width 15.2H, Platelet Count 287, Mean Platelet Volume 10.1, Neutrophils (%) (Auto) 57, Lymphocytes (%) (Auto) 31, Monocytes (%) (Auto) 9, Eosinophils (%) (Auto) 3, Basophils (%) (Auto) 0, Neutrophils # (Auto) 4.7, Lymphocytes # (Auto) 2.6, Monocytes # (Auto) 0.7, Eosinophils # (Auto) 0.2, Basophils # (Auto) 0.0, Sodium Level 139, Potassium Level 3.7, Chloride Level 106, Carbon Dioxide Level 20L, Anion Gap 13, Blood Urea Nitrogen 14, Creatinine 0.86, Estimat Glomerular Filtration Rate > 60, BUN/Creatinine Ratio 16, Glucose Level 121H, Lactic Acid Level 0.91, Calcium Level 9.4, Corrected Calcium 9.0, Total Bilirubin 0.5, Aspartate Amino Transf (AST/SGOT) 11, Alanine Aminotransferase (ALT/SGPT) 10, Alkaline Phosphatase 114, Total Protein 7.4, Albumin 4.5, Lipase 76 Assessment/Plan Assessment/Plan Assessment/Plan abdominal pain Nausea Constipation SBO History of Adhesions and Bowel Obstruction Have the patient ambulate if tolerated. Symptomatic management at this time. Clinical Quality Measures DVT/VTE Risk/Contraindication: Risk Factor Score Per Nursin RFS Level Per Nursing on Admit: 4+=Very High TERENCE ESPINO DO 01/03/20 1403: History of Present Illness History of Present Illness Time Seen by Provider: 13:41 History of Present Illness Pt seen and examined, states pain is more than 10 out of 10. She describes severe crampy pain; "like labor pains and they cause my blood pressure to go up". Radiating throughout the abdomen. Denies vomiting. Pt is still having small BM's. Allergies and Home Medications Allergies Coded Allergies: morphine (Verified Allergy, Unknown, 09/03/19) tramadol (Verified Allergy, Unknown, 09/03/19) Patient Home Medication List Home Medication List Reviewed: Yes (States she has a list in her wallet that has all her medications) Past Ldiqfrc-Zwhtmj-Fidmgr Hx Patient Social History Alcohol Use: Denies Use Recreational Drug Use: No Surgeries History of Surgeries: Yes Respiratory History of Respiratory Disorde: No Cardiovascular History of Cardiac Disorders: Yes Genitourinary History of Genitourinary Disor: No Gastrointestinal History of Gastrointestinal Di: Yes (SBO 15 years ago) Musculoskeletal History of Musculoskeletal Dis: Yes Endocrine History of Endocrine Disorders: No HEENT History of HEENT Disorders: No Loss of Vision: Denies Hearing Impairment: Denies Cancer History of Cancer: No Psychosocial History of Psychiatric Problem: No Family Medical History Significant Family History: Heart Disease, Diabetes (Mother) Family Medial History: Diabetes mellitus 19 MOTHER FH: heart disease 19 MOTHER Review of Systems-General Psychiatric/Neurological: Anxiety Physical Exam-General Problems Physical Exam General Appearance: mild distress, obese Eyes: Bilateral Eye PERRL, Bilateral Eye EOMI HEENT: No scleral icterus (R), No scleral icterus (L) Neck: non-tender, supple Respiratory: lungs clear, no respiratory distress, decreased breath sounds Cardiovascular: regular rate, rhythm, no murmur Gastrointestinal: distended, guarding, tenderness (midline) Back: no CVA tenderness, no vertebral tenderness Extremities: no pedal edema, no calf tenderness Neurologic/Psychiatric: alert, oriented x 3 Skin: normal color, warm/dry Lymphatic: no adenopathy (neck, axilla or groin) Assessment/Plan Assessment/Plan Assessment/Plan PSBO Plan to do SBFT today and told pt she should ambulate and chew gum (both help with return of bowel function). Continue pain control and anti-emetics as needed. Nothing obvious on CT that would indicate emergent surgery. Supervisory-Addendum Brief Verification & Attestation Participated in pt care: history, MDM, physical Personally performed: exam, history, MDM Care discussed with: Medical Student Procedures: n/a Verification and Attestation of Medical Student E/M Service A medical student performed and documented this service. I then reviewed and verified all information documented by the medical student and made modifications to such information, when appropriate. I personally performed a physical exam, medical decision making and then discussed any differences between the notes and made revisions as necessary to create one note. Terence Espino , 01/03/20 , 14:06 [facility] Jan 03, 2020 09:21 TERENCE ESPINO DO Jan 03, 2020 14:03
[2020-01-03] MEDS ORDERED: HYDROmorphone 2 MG/ML VIAL (DILAUDID) ONE (10:16)
[2020-01-03] MEDS: HYDROmorphone 2 MG/ML VIAL (DILAUDID) IV PRN ×5 (10:27→21:52)
--- NOTE | 2020-01-03 11:17 | History & Physical-Hospitalist ---
ANUPAM MARTIN,MED STUDENT 01/03/20 1117: History of Present Illness HPI/Chief Complaint Patient is a 64 year old female complaining of abdominal pain that began last night. She presented to [facility] ED at approximately 10:00pm. She describes her pain as a "sharp or stabbing" pain and rates it a 9/10. She states the pain is "all over" her abdomen, and comes and goes. Movement makes the pain worse, and pain medication has helped the pain some. She notes she had not had a bowel movement for the last 2-3 days, until having a small volume stool last night. She has a history of abdominal procedures including appendectomy, cholecystectomy, and hysterectomy, and has had adhesions in the past. She had similar pains around 13 years ago, but has not had similar pain since that time. Source: patient Exam Limitations: clinical condition (Pain) Date Seen 01/03/20 Time Seen by a Provider: 07:45 Attending Physician Viviane Lamas DO [facility] Referring Physician Date of Admission Jan 03, 2020 at 04:56 Home Medications & Allergies Home Medications Reviewed patient Home Medication Reconciliation performed by pharmacy medication reconciliations zoning technician and/or nursing. Patients Allergies have been reviewed. Allergies Allergies Coded Allergies morphine (Verified Allergy, Unknown, 09/03/19) tramadol (Verified Allergy, Unknown, 09/03/19) Past Qucmpqf-Abhsqh-Hqscbb Hx Patient Social History Alcohol Use: Denies Use Recreational Drug Use: No Smoking Status: Current Everyday Smoker (1/2 ppd) Type Used: Cigarettes (1/2 PPD for 40 years) Recent Foreign Travel: No Contact w/other who traveled: No Recent Hopitalizations: No Recent Infectious Disease Expo: No Immunizations Up To Date Tetanus Booster (TDap): Unknown Date of Influenza Vaccine: Aug 10, 2019 Seasonal Allergies Seasonal Allergies: No Past Medical History Surgeries: Abdominal (states gallbladder and appendix were removed), 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 (partial hysterecctomy), Tubal Ligation Respiratory: Asthma Cardiac: Atrial Fibrillation, Heart Attack, Hypertension, Irregular Heartbeat Neurological: Neuropathy : No Tubal Ligation, Menopausal Musculoskeletal: Rheumatoid Arthritis, Chronic Back Pain Endocrine: Hypothyroidsim Family History Diabetes mellitus 19 MOTHER FH: heart disease 19 MOTHER Diabetes (Mother), Other Conditions/Hx (Unsure of Fathers medical History. Does not know father) Review of Systems Constitutional: chills; No dizziness, No weakness EENTM: No hearing loss, No blurred vision, No double vision, No vision loss Respiratory: cough; No hemoptysis, No short of breath, No wheezing Cardiovascular: No chest pain, No palpitations Gastrointestinal: abdominal pain (RLQ), constipation; No diarrhea, No hematemesis; nausea; No vomiting Genitourinary: No dysuria, No frequency, No hematuria Musculoskeletal: back pain, joint pain, neck pain Skin: No lesions, No lumps, No rash Psychiatric/Neurological: Headache; Denies Numbness; Tingling (Feet) Physical Exam Physical Exam Vital Signs Vital Signs - First Documented 01/03/20 02:12 Temp 37.2 Pulse 62 Resp 20 B/P (MAP) 128/68 (88) Pulse Ox 99 O2 Delivery Room Air Capillary Refill : Less Than 3 Seconds Height, Weight, BMI Height: '" Weight: lbs. oz. kg; 35.70 BMI Method: General Appearance: Mild Distress Eyes: Bilateral Eye PERRL, Bilateral Eye EOMI HEENT: PERRL/EOMI; No Pale Conjunctivae (L), No Pale Conjunctivae (R), No Ph otophobia Respiratory: Chest Non Tender, Lungs Clear, Normal Breath Sounds, No Accessory Muscle Use, No Respiratory Distress Cardiovascular: Regular Rate, Rhythm, No Edema, No Murmur Gastrointestinal: Abnormal Bowel Sounds (Decreased); No Guarding, No Rebound; Tenderness Extremity: Normal Capillary Refill, Non Tender, No Calf Tenderness, No Pedal Edema Neurologic/Psychiatric: Alert, Oriented x3, No Motor/Sensory Deficits, curatorial assistant II- XII Norm as Tested Skin: Normal Color, Warm/Dry Results Results/Procedures Labs Laboratory Tests 01/03/20 02:45 Patient resulted labs reviewed. Imaging Abdomen and pelvis CT with contrast - 01/03/2020 Impressions: 1. Early small bowel obstruction with transition point likely within the pelvis. The uterus is surgically absent. 2. Diverticulosis of sigmoid colon without diverticulitis. 3. No free air, free fluid or abscess. Assessment/Plan Admission Diagnosis Diffuse abdominal pain - probable SBO Diverticulosis Hypertension Tobacco use History of adhesions History of Atrial fibrillation NPO Start IV fluids Administer Dilaudid 2mg IV prn Lovenox and SCD's for DVT prophylaxis Consult general surgery Clinical Quality Measures DVT/VTE Risk/Contraindication: Risk Factor Score Per Nursin RFS Level Per Nursing on Admit: 4+=Very High VIVIANE LAMAS DO 01/03/20 1609: History of Present Illness HPI/Chief Complaint CC: Abdominal pain due to small bowel obstruction HPI: This is a 64yoWF clinic Pt of [facility] who presents to the ER pain similar to 14 years ago when she had a small bowel obstruction and had to have adhesions removed. She hadn't had a BM for three days, has a history of A-FIB and heart disease maintained on Xarelto and Aspirin, so Dr. Lopez will be consulted in case she requires surgery. Dr. Espino has been consulted. Dilaudid will be initiated for severe pain that is uncontrollable. Await Dr. Espino's plan, may need surgery. Past Wqiudoh-Xjxjdl-Xhfiji Hx Past Med/Social Hx: Reviewed Nursing Past Med/Soc Hx, Reviewed and Corrections made Patient Social History Marrital Status: single Employed/Student: unemployed Alcohol Use: Denies Use Smoking Status: Former Smoker Past Medical History Respiratory: Asthma Cardiac: Atrial Fibrillation, Coronary Artery Disease Family History Diabetes mellitus 19 MOTHER FH: heart disease 19 MOTHER Review of Systems Constitutional: see HPI Gastrointestinal: abdominal pain (RLQ), nausea, vomiting Physical Exam Physical Exam General Appearance: Moderate Distress Eyes: Right Eye Normal Inspection, Right Eye PERRL HEENT: PERRL/EOMI, TMs Normal, Normal ENT Inspection, Pharynx Normal, Moist Mucous Membranes Neck: Full Range of Motion, Normal Inspection, Non Tender Respiratory: Chest Non Tender, Lungs Clear, Normal Breath Sounds, No Accessory Muscle Use, No Respiratory Distress Cardiovascular: Regular Rate, Rhythm, No Edema, No Gallop, No JVD, No Murmur, Normal Peripheral Pulses Gastrointestinal: Abnormal Bowel Sounds (Decreased) Back: Normal Inspection, No CVA Tenderness, No Vertebral Tenderness Extremity: Normal Capillary Refill, Normal Inspection, Normal Range of Motion, Non Tender, No Calf Tenderness, No Pedal Edema Neurologic/Psychiatric: Alert, Oriented x3, No Motor/Sensory Deficits, Normal Mood/Affect Skin: Normal Color, Warm/Dry Lymphatic: No Adenopathy Assessment/Plan Admission Diagnosis Assessment: SBO AF CAD HTN Plan: Dr Espino consult Dr Lopez consult Admission Status: Inpatient Order (span 2 midnights) Reason for Inpatient Admission: SBO will take 3 days Diagnosis/Problems Diagnosis/Problems (1) Small bowel obstruction due to adhesions Status: Acute (2) CAD (coronary artery disease) (3) Atrial fibrillation (4) Hypertension Supervisory-Addendum Brief Verification & Attestation Participated in pt care: history, MDM, physical Personally performed: exam, history, MDM, supervision of care Care discussed with: Medical Student Procedures: n/a Results interpretation: Verified all documentation Verification and Attestation of Medical Student E/M Service A medical student performed and documented this service in my presence. I reviewed and verified all information documented by the medical student and made modifications to such information, when appropriate. I personally performed the physical exam and medical decision making. Viviane Lamas, Jan 03, 2020,21:05 ANUPAM MARTIN,MED STUDENT Jan 03, 2020 11:17 VIVIANE LAMAS DO Jan 03, 2020 16:09
--- NOTE | 2020-01-03 12:33 | Consultation-Cardiology ---
HPI-Cardiology Cardiology Consultation: Date of Consultation 01/03/20 Time Seen by a Provider: 18:15 Date of Admission Attending Physician Viviane Bauer DO Admitting Physician [place] Consulting Physician JOCELYN GRIJALVA MD, MA, FACP, FACC, [facility], [facility] Physician requesting consult: Dr Bauer HPI: Chief Complaint: CC: Abdominal pain HPI: 64 yo woman with 2 days of increasing abd pain associated with nausea and vomiting, no diarrhea. Pain is colicky and in the lower abdomen. No chest pain or palp or syncope. Gen malaise and weakness Review of Systems-Cardiology Review of Systems Constitutional: malaise; No weight loss, No weight gain Eyes: No vision change Ears/Nose/Throat: No ear discharge, No nasal drainage, No recent hearing loss Respiratory: As described under HPI Cardiovascular: As described under HPI Gastrointestinal: As described under HPI Genitourinary: No dysuria, No hematuria Musculoskeletal: No back pain, No joint pain Skin: No rash, No ulcerations Psychiatric/Neurological: No seizure, No focal weakness, No syncope Hematologic: No bleeding abnormalities All Other Systems Reviewed Negative Unless Noted: Yes KBT-Mqynmo-Hpzdsx Hx Patient Social History Alcohol Use: Denies Use Recreational Drug Use: No Smoking Status: Current Everyday Smoker (1/2 ppd) Type Used: Cigarettes (1/2 PPD for 40 years) Recent Foreign Travel: No Recent Infectious Disease Expo: No Hospitalization with Isolation: Denies Immunizations Up To Date Tetanus Booster (TDap): Unknown Date of Influenza Vaccine: Aug 10, 2019 Past Medical History PMH As described under Assessment. Family Medical History Family History: Diabetes mellitus 19 MOTHER FH: heart disease 19 MOTHER Allergies and Home Medications Allergies Coded Allergies: morphine (Verified Allergy, Unknown, 09/03/19) tramadol (Verified Allergy, Unknown, 09/03/19) Home Medications Amitriptyline HCl 25 Mg Tablet, 25 MG PO HS, (Reported) Amlodipine Besylate 10 Mg Tablet, 10 MG PO DAILY, (Reported) Aspirin 81 Mg Tablet.dr, 81 MG PO DAILY, (Reported) Carboxymethylcellulos/Glycerin 10 Ml Drops, 2 DROPS OU for DRY EYES, (Reported) Clindamycin HCl 300 Mg Capsule, 300 MG PO Q8H, (Reported) FILLED 12-28-2019 #30/10 DAY SUPPLY Duloxetine HCl 30 Mg Capsule.dr, 30 MG PO DAILY, (Reported) Gabapentin 300 Mg Capsule, 300 MG PO Q8H PRN for NERVE PAIN, (Reported) Hydrocodone/Acetaminophen 1 Each Tablet, 1 TAB PO Q6H PRN for PAIN-MODERATE (5- 7), (Reported) Isosorbide Mononitrate 30 Mg Tab.er.24h, 30 MG PO DAILY, (Reported) Methimazole 5 Mg Tablet, 5 MG PO DAILY, (Reported) Rivaroxaban 20 Mg Tablet, 20 MG PO DAILY, (Reported) Rosuvastatin Calcium 5 Mg Tablet, 5 MG PO DAILY, (Reported) Patient Home Medication List Home Medication List Reviewed: Yes Physical Exam-Cardiology Physical Exam Vital Signs/I&O 01/03/20 01/03/20 01/03/20 01/03/20 08:00 08:00 12:00 16:00 Temp 36.6 37.1 36.6 Pulse 58 75 61 Resp 20 20 20 B/P (MAP) 186/90 (122) 141/66 (91) 193/88 (123) Pulse Ox 95 95 98 97 O2 Delivery Room Air Room Air Room Air Room Air 01/03/20 18:00 B/P (MAP) 146/80 (102) Capillary Refill : Less Than 3 Seconds Constitutional: AAO x 3, apparent distress (abd pain and a nausea/vomiting at time of this exam), well-developed, well-nourished HEENT: PERRL, EOMI, hearing is well preserved; No xanthelasmas are seen Neck: carotid pulses are 2 + bilaterally, with good upstrokes Respiratory: No accessory muscle use; other (good bilat air entry) Cardiovascular: regular rate-rhythm, S1 and S2, systolic murmur Gastrointestinal: tender; No guarding; rebound, audible bowel sounds Extremities: No clubbing, No cyanosis, No significant edema Neurologic/Psychiatric: oriented x 3, other (moves all limbs equally) Skin: warm/dry; No rash, No ulcerations Data Review Labs Laboratory Tests 01/03/20 02:16: Urine Color YELLOW, Urine Clarity CLEAR, Urine pH 6.0, Urine Specific [place] 1.020, Urine Protein NEGATIVE, Urine Glucose (UA) NEGATIVE, Urine Ketones NEGATIVE, Urine Nitrite NEGATIVE, Urine Bilirubin NEGATIVE, Urine Urobilinogen 0.2, Urine Leukocyte Esterase NEGATIVE, Urine RBC (Auto) TRACE-I, Urine RBC 0-2, Urine WBC NONE, Urine Squamous Epithelial Cells 0-2, Urine Crystals NONE, Urine Bacteria NEGATIVE, Urine Casts NONE, Urine Mucus MODERATEH, Urine Culture Indicated NO 01/03/20 02:45: White Blood Count 8.2, Red Blood Count 4.45, Hemoglobin 13.3, Hematocrit 40, Mean Corpuscular Volume 90, Mean Corpuscular Hemoglobin 30, Mean Corpuscular Hem oglobin Concent 33, Red Cell Distribution Width 15.2H, Platelet Count 287, Mean Platelet Volume 10.1, Neutrophils (%) (Auto) 57, Lymphocytes (%) (Auto) 31, Monocytes (%) (Auto) 9, Eosinophils (%) (Auto) 3, Basophils (%) (Auto) 0, Neutrophils # (Auto) 4.7, Lymphocytes # (Auto) 2.6, Monocytes # (Auto) 0.7, Eosinophils # (Auto) 0.2, Basophils # (Auto) 0.0, Sodium Level 139, Potassium Level 3.7, Chloride Level 106, Carbon Dioxide Level 20L, Anion Gap 13, Blood Urea Nitrogen 14, Creatinine 0.86, Estimat Glomerular Filtration Rate > 60, BUN/Creatinine Ratio 16, Glucose Level 121H, Lactic Acid Level 0.91, Calcium Level 9.4, Corrected Calcium 9.0, Total Bilirubin 0.5, Aspartate Amino Transf (AST/SGOT) 11, Alanine Aminotransferase (ALT/SGPT) 10, Alkaline Phosphatase 114, Total Protein 7.4, Albumin 4.5, Lipase 76 Laboratory Tests 01/03/20 02:45 A/P-Cardiology Assessment/Admission Diagnosis SBO MPI of 12/31/19: minimal amount of apical ischemia, normal regional wall motion, LVEF 72% Carotid u/s of Oct 2019 showed no significant carotid arterial dz AAA scan of Oct 2019 showed no evidence of AAA Hypertension Obesity BMI approx 32 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 (per pt report) Echo of 10/04/19: LVEF 55-65%, mild MR, mild LA enlargement, grade 1 greenwood dysf unction PAF, first diagnosed at [facility] in Oct 2018 Suspected sleep apnea (based on body habitus and h/o PAF) Discussion and Recomendations * Cardiac risk of noncardiac surgery is estimated to be low to intermediate, given no angina and minimal apical ischemia and normal LVEF and wall motion * It would be reasonable to proceed with necessary surgery * We recommend continuation of previous cardiac regimen, including ASA and rivaroxaban when clinically feasible * Place on tele, given h/o PAF Clinical Quality Measures DVT/VTE Risk/Contraindication: Risk Factor Score Per Nursin RFS Level Per Nursing on Admit: 4+=Very High JOCELYN GRIJALVA MD FACP FAC [facility] Jan 03, 2020 12:33
--- NOTE | 2020-01-03 12:43 | NUR ---
Pt was tearful, stating she was in extreme pain. She requested prayer. Remained with the pt and offered active listening and calming presence. Concluded visit when she reported feeling relief. Pt is Taoist.
--- NOTE | 2020-01-03 13:50 | NUR ---
C/O PAIN AND NAUSEA,, DR HEMA REEVES HERE, ORDERED SMALL BOWEL TEST, PRN PAIN MEDS NEEDED, NO VOMITING, PASSING FLATUS, HAD SMALL LOOSE STOOL THIS AM
[2020-01-03] MEDS ORDERED: RIVA20TA PO (14:50)
[2020-01-03] MEDS ORDERED: METH5TAB5 PO (14:50)
[2020-01-03] MEDS ORDERED: GABA-488 PO (14:50)
[2020-01-03] MEDS ORDERED: AMLO10TA7 PO (14:50)
[2020-01-03] MEDS ORDERED: DULO30CA49 PO (14:50)
[2020-01-03] MEDS ORDERED: CARB10DR5 OU (14:50)
[2020-01-03] MEDS ORDERED: ROSU5TAB13 PO (14:50)
[2020-01-03] MEDS ORDERED: AMIT25TA9 PO (14:50)
[2020-01-03] MEDS ORDERED: ASPI-983 PO (14:50)
[2020-01-03] MEDS ORDERED: ISOS30TA3 PO (14:50)
[2020-01-03] MEDS ORDERED: CLIN300C11 PO (14:50)
[2020-01-03] MEDS ORDERED: HYDR-34 PO (14:50)
--- NOTE | 2020-01-03 14:56 | NUR ---
TRIED TO SPEAK WITH THE PT, UNFORTUNATELY SHE WAS NOT ABLE TO STAY AWAKE TO ANSWER ANY QUESTIONS. I CALLED [facility] TO SEND A CURRENT FILL LIST, THEN SPOKE WITH THE NURSE AT [facility] AND HAD HER FAX WHAT THEY HAVE ON FILE FOR CURRENT MEDS (I WILL ATTACH BOTH OF THESE TO HER CHART). THEY NURSE MENTIONED THAT IT MAY BE A CHALLENGE TO GET ACCURATE INFORMATION SINCE THE PT WAS A POOR HISTORIAN. I THEN WENT BACK TO THE PTS ROOM AND STILL WAS UNABLE TO GET MUCH INFORMATION. I ENTERED THE MED REC TO THE BEST OF MY ABILITY USING THE INFORMATION FROM THE PHARMACY AND FROM [facility]. THE FOLLOWING ARE FILL DATES: 11-08-2019 ROSUVASTATIN 5MG #90/90DS 11-09-2019 DICLOFENAC GEL #1/30DS 11-11-2019 GABAPENTIN #90 12-02-2019 XARELTO 20MG #30/30DS 12-06-2019 ASPIRIN EC 81MG #30/30DS 12-06-2019 AMLODIPINE 10MG #30/30DS 12-06-2019 METHIMAZOLE 5MG #30/30DS 12-06-2019 ISOSORBIDE MONO ER 30MG #30/30DS 12-06-2019 DULOXETINE 30MG #30/30DS 12-06-2019 AMITRIPTYLINE 25MG #30/30DS 12-22-2019 HYDROCODONE APAP 7.5/325 #112/28DS 12-28-2019 CLINDAMYCIN 300MG #30/10DS OTC MEDS: REFRESH EYE DROPS PT MENTIONED SHE FILLED AT [facility]- WHEN I CALLED THEY HAVE NOT FILLED ANYTHING SINCE SEP 2019. ON THE LIST FROM THE DR'S OFFICE IT LISTED METOPROLOL ER 50MG, PREDNISOLONE EYE DROPS, AND VALTREX 1 GM. NONE OF THESE ARE CURRENT ORDER AT EITHER PHARMACY AND [facility] DOESNT EVEN HAVE RECORD OF THE METOPROLOL.
[2020-01-03] MEDS: PROMETHAZINE INJ 25 MG/ML (PHENERGAN) AMP IV PRN ×2 (16:27→23:29)
[2020-01-03] MEDS ORDERED: DIATRIZOATE MEGLUM/SODIUM 37% 120 ML (GASTROGRAFIN) PO ONE (17:30)
--- NOTE | 2020-01-03 17:30 | NUR ---
DR GRIJALVA HERE, ORDERED TELEMETRY, CONTINUE TO C/O LOW ABD PAIN AND NAUSEA, NO EMESIS, VOIDED 250 ML CLEAR YELLOW URINE, PASSING FLATUS, CALL LIGHT WITHIN REACH.
[2020-01-03] MEDS ORDERED: NITROGLYCERIN 2% OINT 1 GM UNIT DOSE PACKET TOP PRN (21:15)
[2020-01-03] MEDS ORDERED: GABAPENTIN 300 MG (NEURONTIN) CAP PO PRN (21:15)
--- NOTE | 2020-01-03 21:40 | NUR ---
Called Dr. Espino and verified it's ok to start lovenox injections at this time.
[2020-01-03] MEDS: ENOXAPARIN 100 MG/1 ML (LOVENOX) SYR SC SCH (21:51)
[2020-01-04] MEDS: ONDANSETRON 4 MG/2 ML (SDV) Z0FRAN IV PRN ×3 (02:12→22:25)
[2020-01-04] MEDS: HYDROmorphone 2 MG/ML VIAL (DILAUDID) IV PRN ×4 (02:26→15:01)
[2020-01-04 03:30] VITALS: BP 169/82
[2020-01-04] MEDS: PROMETHAZINE INJ 25 MG/ML (PHENERGAN) AMP IV PRN ×2 (04:46→11:57)
[2020-01-04 06:41] LABS: BASOPHILS % (AUTO) 0 % (0-10); EOSINOPHILS # (AUTO) 0.1 10^3/uL (0.0-0.3); EOSINOPHILS % (AUTO) 1 % (0-10); HEMATOCRIT 43 % (35-52); HEMOGLOBIN 13.9 G/DL (11.5-16.0); LYMPHOCYTES # (AUTO) 1.3 X 10^3 (1.0-4.0); LYMPHOCYTES % (AUTO) 19 % (12-44); MEAN CORPUSCULAR HEMOGLOBIN 30 PG (25-34); MEAN CORPUSCULAR HGB CONC 33 G/DL (32-36); MEAN CORPUSCULAR VOLUME 91 FL (80-99); MEAN PLATELET VOLUME 10.4 FL (7.4-10.4); MONOCYTES # (AUTO) 0.6 X 10^3 (0.0-1.0); MONOCYTES % (AUTO) 8 % (0-12); NEUTROPHILS % (AUTO) 72 % (42-75); PLATELET COUNT 254 10^3/uL (130-400); RED CELL DISTRIBUTION WIDTH 15.1 % (10.0-14.5)
[2020-01-04 07:04] LABS: ALANINE AMINOTRANSFERASE 7 U/L (0-55); ALBUMIN 4.5 GM/DL (3.2-4.5); ALKALINE PHOSPHATASE 108 U/L (40-136); BILIRUBIN,TOTAL 0.7 MG/DL (0.1-1.0); BUN/CREATININE RATIO 16; CALCIUM 9.5 MG/DL (8.5-10.1); CARBON DIOXIDE 20 MMOL/L (21-32); CHLORIDE 105 MMOL/L (98-107); CREATININE SERUM 0.75 MG/DL (0.60-1.30); GFR ESTIMATED > 60; GLUCOSE 115 MG/DL (70-105); POTASSIUM 4.3 MMOL/L (3.6-5.0); SODIUM 136 MMOL/L (135-145); TOTAL PROTEIN 7.5 GM/DL (6.4-8.2)
[2020-01-04] MEDS: 1/2 NS W/KCL 20 MEQ/L 1,000 ML IV SCH ×2 (07:20→15:02)
[2020-01-04 08:00] VITALS: BP 158/71
[2020-01-04] MEDS: ASPIRIN E.C. 81 MG (ECOTRIN) TAB PO SCH (08:27)
[2020-01-04] MEDS: amLODIPine 10 MG (NORVASC) TAB PO SCH (08:27)
[2020-01-04] MEDS: PANTOPRAZOLE 40 MG (PROTONIX) VIAL IV SCH (08:27)
[2020-01-04] MEDS: ISOSORBIDE MONONITRATE 30 MG (IMDUR) TAB PO SCH (08:27)
[2020-01-04] MEDS: DULoxetine 30 MG (CYMBALTA) CAP PO SCH (08:27)
[2020-01-04] MEDS: ROSUVASTATIN 5 MG (CRESTOR) TABLET PO SCH (08:28)
[2020-01-04] MEDS: METHIMAZOLE TABLET 5 MG TABLET PO SCH (08:30)
[2020-01-04] MEDS: ENOXAPARIN 100 MG/1 ML (LOVENOX) SYR SC SCH ×2 (08:31→20:50)
--- NOTE | 2020-01-04 08:50 | Progress Note - Surgery ---
[facility] 0850: Subjective Date Seen by a Provider: Jan 04, 2020 Time Seen by a Provider: 08:35 Subjective/Events-last exam Patient seen and examined. States that she is still having pain and rates it as a 9.5. Is complaining of nausea and episodes of vomiting, but may have been caused by pain medication. States she is not passing gas. Reports she does not want an NG tube. Review of Systems General: Chills, Other (fevers) HEENT: No Eye Pain, No Sore Throat Pulmonary: Dyspnea (sometimes), Cough Cardiovascular: No: Chest Pain, Palpitations Gastrointestinal: Nausea, Vomiting, Abdominal Pain Musculoskeletal: back pain, foot pain (numbness and tingling) Neurological: Numbness (right foot), Other (tingling right foot) Focused Exam Lactate Level 01/03/20 02:45: Lactic Acid Level 0.91 Objective Exam Vital Signs Date Time Temp Pulse Resp B/P (MAP) Pulse Ox O2 Delivery O2 Flow Rate FiO2 01/04/20 08:00 37.0 69 20 158/71 (100) 97 Room Air 01/04/20 07:00 71 01/04/20 03:30 37.0 66 16 169/82 (111) 92 Room Air 01/04/20 01:24 75 01/03/20 23:50 37.1 75 22 141/70 (93) 98 Room Air 01/03/20 20:00 Room Air 01/03/20 19:13 67 01/03/20 19:00 36.5 66 18 165/79 (107) 92 Room Air 01/03/20 18:00 146/80 (102) 01/03/20 16:39 58 01/03/20 16:00 36.6 61 20 193/88 (123) 97 Room Air 01/03/20 12:00 37.1 75 20 141/66 (91) 98 Room Air I & O 01/04/20 07:00 Intake Total 1000 ml Output Total 950 ml Balance 50 ml Capillary Refill : Less Than 3 Seconds General Appearance: Anxious, Mild Distress, Obese Respiratory: Chest Non Tender, No Accessory Muscle Use, No Respiratory Distress, Decreased Breath Sounds, Wheezing (bilaterally) Cardiovascular: Regular Rate, Rhythm, No Edema, No Murmur Peripheral Pulses: 2+ Radial Pulses (R), 2+ Radial Pulses (L) Gastrointestinal: distended, guarding, tenderness (LLQ) Extremity: No Calf Tenderness, No Pedal Edema Neurologic/Psychiatric: Alert, Oriented x3, Normal Mood/Affect Skin: Normal Color, Warm/Dry Results Lab Laboratory Tests 01/04/20 06:14: White Blood Count 7.0, Red Blood Count 4.65, Hemoglobin 13.9, Hematocrit 43, Mean Corpuscular Volume 91, Mean Corpuscular Hemoglobin 30, Mean Corpuscular Hemoglobin Concent 33, Red Cell Distribution Width 15.1H, Platelet Count 254, Mean Platelet Volume 10.4, Neutrophils (%) (Auto) 72, Lymphocytes (%) (Auto) 19, Monocytes (%) (Auto) 8, Eosinophils (%) (Auto) 1, Basophils (%) (Auto) 0, Neutrophils # (Auto) 5.0, Lymphocytes # (Auto) 1.3, Monocytes # (Auto) 0.6, Eosinophils # (Auto) 0.1, Basophils # (Auto) 0.0, Sodium Level 136, Potassium Level 4.3, Chloride Level 105, Carbon Dioxide Level 20L, Anion Gap 11, Blood Urea Nitrogen 12, Creatinine 0.75, Estimat Glomerular Filtration Rate > 60, BUN/Creatinine Ratio 16, Glucose Level 115H, Calcium Level 9.5, Corrected Calcium 9.1, Total Bilirubin 0.7, Aspartate Amino Transf (AST/SGOT) 14, Alanine Aminotransferase (ALT/SGPT) 7, Alkaline Phosphatase 108, Total Protein 7.5, Albumin 4.5 Assessment/Plan Assessment/Plan Assessment/Plan Partial small bowel obstruction Nausea Vomiting SB follow through shows contrast at the rectum. Continue NPO, IV fluids, and ice chips for dry mouth. Have patient ambulate. And chew gum to increase bowel activity Clinical Quality Measures DVT/VTE Risk/Contraindication: Risk Factor Score Per Nursin RFS Level Per Nursing on Admit: 4+=Very High TERENCE ESPINO DO 01/04/20 1612: Subjective Time Seen by a Provider: 11:47 Subjective/Events-last exam Pt seen and examined, states she is still having pain and moaning. However, when I walked in pt was not in pain and as soon as I left the "moaning" stopped. She also complained about a lot of vomiting. Review of Systems General: Chills Pulmonary: Dyspnea (sometimes), Cough Cardiovascular: No: Chest Pain, Palpitations Gastrointestinal: Nausea, Vomiting, Abdominal Pain Musculoskeletal: back pain Objective Exam General Appearance: Anxious, Mild Distress, Obese Respiratory: Chest Non Tender, No Accessory Muscle Use, Decreased Breath Sounds Cardiovascular: Regular Rate, Rhythm, No Murmur Gastrointestinal: soft, guarding (voluntary), tenderness (LLQ mostly but also diffusely) Assessment/Plan Assessment/Plan Assessment/Plan Pt does not have a complete obstruction but it did take a while for contrast to move through to colon. I am unsure why pt has abdominal pain, but I doubt it is from adhesions. She has never had an EGD or colonoscopy and these should be considered; I discussed this with her and think EGD now and Colonoscopy as an outpt are the best plans. Pt agrees with this and will schedule EGD for tomorrow. I am not sure what else to offer her because her WBC is normal and SBFT did not show obstruction. Supervisory-Addendum Brief Verification & Attestation Participated in pt care: history, MDM, physical Personally performed: exam, history, MDM Care discussed with: Medical Student, HEEL SANDER RUBBER Procedures: n/a Verification and Attestation of Medical Student E/M Service A medical student performed and documented this service. I then reviewed and verified all information documented by the medical student and made modifications to such information, when appropriate. I personally performed a physical exam, medical decision making and then discussed any differences between the notes and made revisions as necessary to create one note. Terence Espino , 01/04/20 , 16:12 ERWIN JUÁREZ Jan 04, 2020 08:50 TERENCE ESPINO DO Jan 04, 2020 16:12
--- NOTE | 2020-01-04 09:04 | Diagnostic Imaging Report ---
INDICATION: Small bowel obstruction. COMPARISON: CT from the same date. TECHNIQUE: Multiple radiographs of the abdomen were obtained before and after the patient ingested enteric contrast. Imaging was obtained for 17 hours. FINDINGS: Embedded Linux Engineer imaging demonstrates contrast within the urinary bladder related to the recent CT examination. Multiple loops of dilated small bowel are identified within the abdomen, particularly on the left. No evidence of free air. Multiple phleboliths within the lower pelvis. Scattered osseous degenerative changes without acute osseous abnormality. At 5 hours, no significant contrast is identified within the colon. Multiple loops of dilated contrast-filled small bowel are present within the abdomen, particularly within the left abdomen. The 17 hour image demonstrates contrast within the colon, particularly the right colon. Additionally, multiple nondilated loops of distal small bowel are noted within the lower pelvis. IMPRESSION: The small bowel transit time is between 5 and 17 hours; therefore, the findings are concerning for a partial small bowel obstruction involving the mid to distal small bowel. Dictated by: Dictated on workstation # [id number]
--- NOTE | 2020-01-04 09:51 | Progress Note - Cardiology ---
Cardiology SOAP Progress Note Subjective: C/O continued abdominal pain. No c/o CP or SOB. Objective: I&O/Vital Signs 01/06/20 00:00 Intake Total 250 ml Balance 250 ml Constitutional: AAO x 3, apparent distress (abd pain and a nausea/vomiting at time of this exam), well-developed, well-nourished Respiratory: No accessory muscle use; other (good bilat air entry) Cardiovascular: regular rate-rhythm, S1 and S2, systolic murmur Gastrointestional: tender; No guarding; rebound, audible bowel sounds Extremities: No clubbing, No cyanosis, No significant edema Neurologic/Psychiatric: oriented x 3, other (moves all limbs equally) Skin: warm/dry; No rash, No ulcerations Results/Procedures: Labs Microbiology 01/04/20 MRSA Screen - Final, Complete MRSA not isolated A/P: Assessment: SBO - management per surgical services MPI of 12/31/19: minimal amount of apical ischemia, normal regional wall motion, LVEF 72% Carotid u/s of Oct 2019 showed no significant carotid arterial dz AAA scan of Oct 2019 showed no evidence of AAA Hypertension Obesity BMI approx 32 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 (per pt report) Echo of 10/04/19: LVEF 55-65%, mild MR, mild LA enlargement, grade 1 greenwood dysfunction PAF, first diagnosed at [facility] in Oct 2018 Suspected sleep apnea (based on body habitus and h/o PAF) Plan: * Cardiac risk of noncardiac surgery is estimated to be low to intermediate, given no angina and minimal apical ischemia and normal LVEF and wall motion * It would be reasonable to proceed with necessary surgery * We recommend continuation of previous cardiac regimen, including ASA and rivaroxaban when clinically feasible * Monitor lab [facility] GA Jan 04, 2020 09:51
[2020-01-04 12:00] VITALS: BP 156/73
--- NOTE | 2020-01-04 12:33 | Progress Note - Hospitalist ---
ANUPAM MARTIN,MED STUDENT 01/04/20 1233: Subjective HPI/CC On Admission Date Seen by Provider: Jan 04, 2020 Time Seen by Provider: 09:30 CC: Abdominal pain due to small bowel obstruction HPI: This is a 64yoWF clinic Pt of [facility] who presents to the ER pain similar to 14 years ago when she had a small bowel obstruction and had to have adhesions removed. She hadn't had a BM for three days, has a history of A-FIB and heart disease maintained on Xarelto and Aspirin, so Dr. Lopez will be consulted in case she requires surgery. Dr. Espino has been consulted. Dilaudid will be initiated for severe pain that is uncontrollable. Await Dr. Espino's plan, may need surgery. Subjective/Events-last exam Patient reports continued crampy abdominal pain that she describes as "feels like labor pains", although she reports slight improvement. Small bowel follow through study revealed transit time of 5 to 17 hours, indicating likely partial small bowel obstruction. States she has not passed gas. Focused Exam Lactate Level 01/03/20 02:45: Lactic Acid Level 0.91 Objective Exam Vital Signs Vital Signs Date Time Temp Pulse Resp B/P (MAP) Pulse Ox O2 Delivery O2 Flow Rate FiO2 01/04/20 12:00 36.3 71 18 156/73 (100) 97 Room Air Capillary Refill : Less Than 3 Seconds General Appearance: WD/WN, Mild Distress Respiratory: Lungs Clear, Normal Breath Sounds, No Accessory Muscle Use, No Respiratory Distress Gastrointestinal: Abnormal Bowel Sounds, Distended, Tenderness Neurologic/Psychiatric: Alert, Oriented x3 Results/Procedures Lab Laboratory Tests 01/04/20 06:14 Patient resulted labs reviewed. Assessment/Plan Assessment and Plan Assess & Plan/Chief Complaint Partial small bowel obstruction Diffuse abdominal pain Hypertension History of adhesions History of atrial fibrillation Continue NPO Dilaudid Q2H prn Lovenox and SCD's for DVT prophylaxis Ambulate as tolerated Clinical Quality Measures DVT/VTE Risk/Contraindication: Risk Factor Score Per Nursin RFS Level Per Nursing on Admit: 4+=Very High VIVIANE LAMAS DO 01/04/20 1418: Subjective Subjective/Events-last exam Partial obstruction noted on gastrointestinal imaging Did produce a little bit of a stool Pain is slightly improved BP elevated home meds were given Review of Systems Gastrointestinal: Nausea, Vomiting, Abdominal Pain Objective Exam General Appearance: WD/WN, Mild Distress (Hypoactive) Respiratory: Chest Non Tender, Lungs Clear, Normal Breath Sounds, No Accessory Muscle Use, No Respiratory Distress Cardiovascular: Regular Rate, Rhythm, No Edema, No Gallop, No JVD, No Murmur, Normal Peripheral Pulses Gastrointestinal: Abnormal Bowel Sounds Assessment/Plan Assessment and Plan Assess & Plan/Chief Complaint Appreciate Dr Espino Diagnosis/Problems Diagnosis/Problems (1) Small bowel obstruction due to adhesions Status: Acute (2) CAD (coronary artery disease) (3) Atrial fibrillation (4) Hypertension Supervisory-Addendum Brief Verification & Attestation Participated in pt care: history, MDM, physical Personally performed: exam, history, MDM, supervision of care Care discussed with: Medical Student Procedures: n/a Results interpretation: Verified all documentation Verification and Attestation of Medical Student E/M Service A medical student performed and documented this service in my presence. I reviewed and verified all information documented by the medical student and made modifications to such information, when appropriate. I personally performed the physical exam and medical decision making. Viviane Lamas, Jan 04, 2020,20:48 ANUPAM MARTIN,MED STUDENT Jan 04, 2020 12:33 VIVIANE LAMAS DO Jan 04, 2020 14:18
--- NOTE | 2020-01-04 13:58 | NUR ---
HOLTER MONITOR GIVEN TO HEATING REPAIR TECHNICIAN (DANIELLE) AT THIS TIME TO AND RETURNED TO EMERGENCY DEPARTMENT SHE WAS ADMITTED TO [facility] AFTER BEING DISCHARGED FROM EMERGENCY DEPARTMENT.
[2020-01-04 15:57] VITALS: BP 149/82
--- NOTE | 2020-01-04 17:12 | Progress Note - Cardiology ---
Cardiology SOAP Progress Note Subjective: Abd pain has improved, but not resolved Much less nausea No vomiting or diarrhea Has appetite Denies cp or palp or syncope Gen malaise Objective: I&O/Vital Signs 01/04/20 01/04/20 01/04/20 01/04/20 07:00 08:00 08:00 12:00 Temp 37.0 36.3 Pulse 71 69 71 Resp 20 18 B/P (MAP) 158/71 (100) 156/73 (100) Pulse Ox 97 97 97 O2 Delivery Room Air Room Air Room Air 01/04/20 13:00 Pulse 78 01/04/20 00:00 Intake Total 1000 ml Output Total 650 ml Balance 350 ml Constitutional: AAO x 3, apparent distress (abd pain and a nausea/vomiting at time of this exam), well-developed, well-nourished Respiratory: No accessory muscle use; other (good bilat air entry) Cardiovascular: regular rate-rhythm, S1 and S2, systolic murmur Gastrointestional: tender; No guarding; rebound, audible bowel sounds Extremities: No clubbing, No cyanosis, No significant edema Neurologic/Psychiatric: oriented x 3, other (moves all limbs equally) Skin: warm/dry; No rash, No ulcerations Results/Procedures: Labs Laboratory Tests 01/04/20 06:14: White Blood Count 7.0, Red Blood Count 4.65, Hemoglobin 13.9, Hematocrit 43, Mean Corpuscular Volume 91, Mean Corpuscular Hemoglobin 30, Mean Corpuscular Hemoglobin Concent 33, Red Cell Distribution Width 15.1H, Platelet Count 254, Mean Platelet Volume 10.4, Neutrophils (%) (Auto) 72, Lymphocytes (%) (Auto) 19, Monocytes (%) (Auto) 8, Eosinophils (%) (Auto) 1, Basophils (%) (Auto) 0, Neutrophils # (Auto) 5.0, Lymphocytes # (Auto) 1.3, Monocytes # (Auto) 0.6, Eosinophils # (Auto) 0.1, Basophils # (Auto) 0.0, Sodium Level 136, Potassium Level 4.3, Chloride Level 105, Carbon Dioxide Level 20L, Anion Gap 11, Blood Urea Nitrogen 12, Creatinine 0.75, Estimat Glomerular Filtration Rate > 60, B UN/Creatinine Ratio 16, Glucose Level 115H, Calcium Level 9.5, Corrected Calcium 9.1, Total Bilirubin 0.7, Aspartate Amino Transf (AST/SGOT) 14, Alanine Aminotransferase (ALT/SGPT) 7, Alkaline Phosphatase 108, Total Protein 7.5, Albumin 4.5 Laboratory Tests 01/03/20 02:45 01/04/20 06:14 A/P: Assessment: Abd pain of undetermined etiology, managed by the Hosp and Surgical services MPI of 12/31/19: minimal amount of apical ischemia, normal regional wall motion, LVEF 72% Carotid u/s of Oct 2019 showed no significant carotid arterial dz AAA scan of Oct 2019 showed no evidence of AAA Hypertension Obesity BMI approx 32 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 (per pt report) Echo of 10/04/19: LVEF 55-65%, mild MR, mild LA enlargement, grade 1 greenwood dysfunction PAF, first diagnosed at [facility] in Oct 2018 Suspected sleep apnea (based on body habitus and h/o PAF) Plan: * Cardiac risk of noncardiac surgery is estimated to be low to intermediate, given no angina and minimal apical ischemia and normal LVEF and wall motion * It would be reasonable to proceed with necessary surgery * I discussed her CV issues with her * We recommend continuation of previous cardiac regimen, including ASA and rivaroxaban when clinically feasible * Monitor labs JOCELYN GRIJALVA MD FACP [facility] Jan 04, 2020 17:12
[2020-01-04] MEDS ORDERED: ACETAMINOPHEN 325 MG TABLET PO PRN (17:45)
[2020-01-04 20:15] VITALS: BP 145/81
[2020-01-04] MEDS ORDERED: AMITRIPTYLINE 25 MG (ELAVIL) TAB PO SCH (21:00)
[2020-01-04 23:20] VITALS: BP 133/77
[2020-01-05] MEDS: 1/2 NS W/KCL 20 MEQ/L 1,000 ML IV SCH ×2 (00:38→08:13)
[2020-01-05] MEDS: ONDANSETRON 4 MG/2 ML (SDV) Z0FRAN IV PRN ×2 (02:20→08:12)
[2020-01-05 04:00] VITALS: BP 121/65
[2020-01-05 06:16] LABS: BASOPHILS % (AUTO) 0 % (0-10); EOSINOPHILS # (AUTO) 0.1 10^3/uL (0.0-0.3); EOSINOPHILS % (AUTO) 1 % (0-10); HEMATOCRIT 43 % (35-52); HEMOGLOBIN 14.2 G/DL (11.5-16.0); LYMPHOCYTES % (AUTO) 23 % (12-44); MEAN CORPUSCULAR HEMOGLOBIN 30 PG (25-34); MEAN CORPUSCULAR HGB CONC 33 G/DL (32-36); MEAN CORPUSCULAR VOLUME 90 FL (80-99); MEAN PLATELET VOLUME 10.1 FL (7.4-10.4); MONOCYTES # (AUTO) 0.6 X 10^3 (0.0-1.0); MONOCYTES % (AUTO) 7 % (0-12); NEUTROPHILS % (AUTO) 69 % (42-75); PLATELET COUNT 270 10^3/uL (130-400); RED CELL DISTRIBUTION WIDTH 14.9 % (10.0-14.5); WHITE BLOOD COUNT 8.7 10^3/uL (4.3-11.0)
[2020-01-05 06:40] LABS: CARBON DIOXIDE 20 MMOL/L (21-32); CHLORIDE 103 MMOL/L (98-107); POTASSIUM 4.5 MMOL/L (3.6-5.0); SODIUM 137 MMOL/L (135-145)
[2020-01-05 06:41] LABS: ALANINE AMINOTRANSFERASE 10 U/L (0-55); ALBUMIN 4.5 GM/DL (3.2-4.5); ALKALINE PHOSPHATASE 99 U/L (40-136); BUN/CREATININE RATIO 15; CALCIUM 9.7 MG/DL (8.5-10.1); CREATININE SERUM 0.81 MG/DL (0.60-1.30); GFR ESTIMATED > 60; GLUCOSE 109 MG/DL (70-105); TOTAL PROTEIN 7.7 GM/DL (6.4-8.2)
--- NOTE | 2020-01-05 07:57 | Progress Note - Surgery ---
[facility] 01/05/20 0757: Subjective Date Seen by a Provider: Jan 05, 2020 Time Seen by a Provider: 07:32 Subjective/Events-last exam Patient seen and examined. States that she is still having abdominal pain, nausea, and vomiting. Patient also states that she is now have muscle spasms due to night sweats. Patient is not having bowel movements and not passing gas. Review of Systems General: Night Sweats, Other (fevers) HEENT: No Head Aches, No Eye Pain Pulmonary: Dyspnea, Cough Cardiovascular: No: Chest Pain, Edema Gastrointestinal: Nausea, Vomiting, Abdominal Pain Genitourinary: No Dysuria, No Incontinence Musculoskeletal: back pain, leg pain (Knee pain) Neurological: Numbness (in extremities), Other (tingling in extremeties) Focused Exam Lactate Level 01/03/20 02:45: Lactic Acid Level 0.91 Objective Exam Vital Signs Date Time Temp Pulse Resp B/P (MAP) Pulse Ox O2 Delivery O2 Flow Rate FiO2 01/05/20 07:00 75 01/05/20 04:00 36.3 52 16 121/65 (83) Room Air 01/05/20 01:00 80 01/04/20 23:20 36.4 69 19 133/77 (95) 97 Room Air 01/04/20 20:15 37.7 85 19 145/81 (102) 97 Room Air 01/04/20 19:30 Room Air 01/04/20 19:00 78 01/04/20 15:57 37.9 70 16 149/82 (104) 94 Room Air 01/04/20 13:00 78 01/04/20 12:00 36.3 71 18 156/73 (100) 97 Room Air 01/04/20 08:00 97 Room Air 01/04/20 08:00 37.0 69 20 158/71 (100) 97 Room Air I & O 01/05/20 07:00 Intake Total 1230 ml Output Total 806 ml Balance 424 ml Capillary Refill : Less Than 3 SecondsLess Than 3 Seconds General Appearance: WD/WN, Mild Distress (Hypoactive) Respiratory: Chest Non Tender, No Accessory Muscle Use, No Respiratory Distress, Decreased Breath Sounds Cardiovascular: Regular Rate, Rhythm, No Edema, No Murmur, Normal Peripheral Pulses Peripheral Pulses: 2+ Radial Pulses (R), 2+ Radial Pulses (L) Gastrointestinal: soft, distended, tenderness (LLQ but tenderness has decreased. ) Extremity: No Calf Tenderness, No Pedal Edema Neurologic/Psychiatric: Alert, Oriented x3 Skin: Normal Color, Warm/Dry Results Lab Laboratory Tests 01/05/20 06:00: White Blood Count 8.7, Red Blood Count 4.77, Hemoglobin 14.2, Hematocrit 43, Mean Corpuscular Volume 90, Mean Corpuscular Hemoglobin 30, Mean Corpuscular Hemoglobin Concent 33, Red Cell Distribution Width 14.9H, Platelet Count 270, Mean Platelet Volume 10.1, Neutrophils (%) (Auto) 69, Lymphocytes (%) (Auto) 23, Monocytes (%) (Auto) 7, Eosinophils (%) (Auto) 1, Basophils (%) (Auto) 0, Neutrophils # (Auto) 6.0, Lymphocytes # (Auto) 2.0, Monocytes # (Auto) 0.6, Eosinophils # (Auto) 0.1, Basophils # (Auto) 0.0, Sodium Level 137, Potassium Level 4.5, Chloride Level 103, Carbon Dioxide Level 20L, Anion Gap 14, Blood Urea Nitrogen 12, Creatinine 0.81, Estimat Glomerular Filtration Rate > 60, BUN/Creatinine Ratio 15, Glucose Level 109H, Calcium Level 9.7, Corrected Calcium 9.3, Total Bilirubin 1.0, Aspartate Amino Transf (AST/SGOT) 13, Alanine Aminotransferase (ALT/SGPT) 10, Alkaline Phosphatase 99, Total Protein 7.7, Albumin 4.5 Microbiology 01/04/20 Influenza Types A,B Antigen (NICHOLAS) - Final, Complete Assessment/Plan Assessment/Plan Assessment/Plan nausea vomiting Plan on doing an EGD today. Continue symptomatic management Clinical Quality Measures DVT/VTE Risk/Contraindication: Risk Factor Score Per Nursin RFS Level Per Nursing on Admit: 4+=Very High BITA ESPINO DO 01/05/20 1428: Subjective Time Seen by a Provider: 11:55 Subjective/Events-last exam Pt seen and examined, just prior to EGD. Still having same complaints. Objective Exam General Appearance: WD/WN, Mild Distress (Hypoactive) Respiratory: Chest Non Tender, No Accessory Muscle Use, Decreased Breath Sounds Cardiovascular: Regular Rate, Rhythm, No Murmur Gastrointestinal: soft, distended, tenderness (LLQ but tenderness has decreased. ) Assessment/Plan Assessment/Plan Assessment/Plan Epigastric pain - burning EGD today and colonoscopy as an outpt. Pain control home per IM. Supervisory-Addendum Brief Verification & Attestation Participated in pt care: history, MDM, physical Personally performed: exam, history, MDM Care discussed with: Medical Student Procedures: n/a Verification and Attestation of Medical Student E/M Service A medical student performed and documented this service. I then reviewed and verified all information documented by the medical student and made modifications to such information, when appropriate. I personally performed a physical exam, medical decision making and then discussed any differences between the notes and made revisions as necessary to create one note. Bita Espino , 01/05/20 , 14:28 ERWIN JUÁREZ [facility] Jan 05, 2020 07:57 BITA ESPINO DO Jan 05, 2020 14:28
[2020-01-05 08:00] VITALS: BP 154/80
[2020-01-05] MEDS: amLODIPine 10 MG (NORVASC) TAB PO SCH (08:05)
[2020-01-05] MEDS: METHIMAZOLE TABLET 5 MG TABLET PO SCH (08:05)
[2020-01-05] MEDS: ISOSORBIDE MONONITRATE 30 MG (IMDUR) TAB PO SCH (08:05)
[2020-01-05] MEDS: ROSUVASTATIN 5 MG (CRESTOR) TABLET PO SCH (08:05)
[2020-01-05] MEDS: ASPIRIN E.C. 81 MG (ECOTRIN) TAB PO SCH (08:05)
[2020-01-05] MEDS: DULoxetine 30 MG (CYMBALTA) CAP PO SCH (08:05)
[2020-01-05] MEDS: PANTOPRAZOLE 40 MG (PROTONIX) VIAL IV SCH (08:06)
[2020-01-05] MEDS: ENOXAPARIN 100 MG/1 ML (LOVENOX) SYR SC SCH ×2 (08:07→08:22)
[2020-01-05] MEDS: HYDROmorphone 2 MG/ML VIAL (DILAUDID) IV PRN (08:13)
--- NOTE | 2020-01-05 11:43 | Discharge Summary ---
Diagnosis/Chief Complaint Date of Admission Jan 03, 2020 at 04:56 Date of Discharge Discharge Date: Jan 05, 2020 Admission Diagnosis Assessment: SBO AF CAD HTN Plan: Dr Espino consult Dr Lopez consult Primary Care Milana Headley Aprn Discharge Diagnosis Partial small bowel obstruction Hypertension Atrial fibrillation (1) Small bowel obstruction due to adhesions Status: Acute (2) CAD (coronary artery disease) (3) Atrial fibrillation (4) Hypertension Discharge Summary Discharge Physical Exam Allergies: Coded Allergies: morphine (Verified Allergy, Unknown, 09/03/19) tramadol (Verified Allergy, Unknown, 09/03/19) Vitals & I&Os Vital Signs Date Time Temp Pulse Resp B/P (MAP) Pulse Ox O2 Delivery O2 Flow Rate FiO2 01/05/20 08:00 97 Room Air 01/05/20 08:00 36.1 91 22 154/80 (104) General Appearance: No Apparent Distress, WD/WN HEENT: PERRL/EOMI, Pharynx Normal, Moist Mucous Membranes; No Pale Conjunctivae (L), No Pale Conjunctivae (R) Respiratory: Lungs Clear, Normal Breath Sounds, No Accessory Muscle Use, No Respiratory Distress; No Rales, No Rhonci, No Wheezing Cardiovascular: Regular Rate, Rhythm, No Edema, No Murmur, Normal Peripheral P ulses Gastrointestinal: No Organomegaly, Soft, Abnormal Bowel Sounds (Decreased); No Distended; Tenderness Extremity: Normal Capillary Refill, Non Tender, No Calf Tenderness, No Pedal Edema Skin: Normal Color, Warm/Dry Neurologic/Psychiatric: Alert, Oriented x3, No Motor/Sensory Deficits Hospital Course Ms. Meeks is a 64yo female who presented to [facility] ED on 01/03/2020 c/o diffuse abdominal pain. She had not had a bowel movement in the 2-3 days prior to arrival, but did have a small volume bowel movement in the ED. She has a history of several abdominal surgical procedures including an appendectomy, cholecystectomy, hysterectomy, and tubal ligation. She experienced similar symptoms several years ago and was found to have adhesions, which were subsequently lysed. A CT abdomen was performed, which showed possible small bowel obstruction and possible adhesions. General surgery was consulted. A small bowel follow through was then obtained, which slowed delayed transit of contrast through the bowel, but not a complete obstruction. The patient was treated with IV fluids, Dilaudid, Zofran, and Phenergen. The patient agreed to have an EGD performed. Labs (last 24 hrs) Laboratory Tests 01/05/20 06:00: White Blood Count 8.7, Red Blood Count 4.77, Hemoglobin 14.2, Hematocrit 43, Mean Corpuscular Volume 90, Mean Corpuscular Hemoglobin 30, Mean Corpuscular Hemoglobin Concent 33, Red Cell Distribution Width 14.9H, Platelet Count 270, Mean Platelet Volume 10.1, Neutrophils (%) (Auto) 69, Lymphocytes (%) (Auto) 23, Monocytes (%) (Auto) 7, Eosinophils (%) (Auto) 1, Basophils (%) (Auto) 0, Neutrophils # (Auto) 6.0, Lymphocytes # (Auto) 2.0, Monocytes # (Auto) 0.6, Eosinophils # (Auto) 0.1, Basophils # (Auto) 0.0, Sodium Level 137, Potassium Level 4.5, Chloride Level 103, Carbon Dioxide Level 20L, Anion Gap 14, Blood Urea Nitrogen 12, Creatinine 0.81, Estimat Glomerular Filtration Rate > 60, BUN/Creatinine Ratio 15, Glucose Level 109H, Calcium Level 9.7, Corrected Calc ium 9.3, Total Bilirubin 1.0, Aspartate Amino Transf (AST/SGOT) 13, Alanine Aminotransferase (ALT/SGPT) 10, Alkaline Phosphatase 99, Total Protein 7.7, Albumin 4.5 Microbiology 01/04/20 Influenza Types A,B Antigen (NICHOLAS) - Final, Complete Patient resulted labs reviewed. Pending Labs Laboratory Tests 01/05/20 06:00: White Blood Count 8.7, Red Blood Count 4.77, Hemoglobin 14.2, Hematocrit 43, Mean Corpuscular Volume 90, Mean Corpuscular Hemoglobin 30, Mean Corpuscular Hemoglobin Concent 33, Red Cell Distribution Width 14.9, Platelet Count 270, Mean Platelet Volume 10.1, Neutrophils (%) (Auto) 69, Lymphocytes (%) (Auto) 23, Monocytes (%) (Auto) 7, Eosinophils (%) (Auto) 1, Basophils (%) (Auto) 0, Neutrophils # (Auto) 6.0, Lymphocytes # (Auto) 2.0, Monocytes # (Auto) 0.6, Eosinophils # (Auto) 0.1, Basophils # (Auto) 0.0, Sodium Level 137, Potassium Level 4.5, Chloride Level 103, Carbon Dioxide Level 20, Anion Gap 14, Blood Urea Nitrogen 12, Creatinine 0.81, Estimat Glomerular Filtration Rate > 60, BUN/Creatinine Ratio 15, Glucose Level 109, Calcium Level 9.7, Corrected Calcium 9.3, Total Bilirubin 1.0, Aspartate Amino Transf (AST/SGOT) 13, Alanine Aminotransferase (ALT/SGPT) 10, Alkaline Phosphatase 99, Total Protein 7.7, Albumin 4.5 Discharge Home Medications: Active Scripts Active Reported Amitriptyline HCl 25 Mg Tablet 25 Mg PO HS Amlodipine Besylate 10 Mg Tablet 10 Mg PO DAILY Aspirin EC (Aspirin) 81 Mg Tablet.dr 81 Mg PO DAILY Duloxetine HCl 30 Mg Capsule.dr 30 Mg PO DAILY Gabapentin 300 Mg Capsule 300 Mg PO Q8H PRN Hydrocodone-Acetamin 7.5-325 (Hydrocodone/Acetaminophen) 1 Each Tablet 1 Tab PO Q6H PRN 7 Days Isosorbide Mononitrate ER (Isosorbide Mononitrate) 30 Mg Tab.er.24h 30 Mg PO DAILY Methimazole 5 Mg Tablet 5 Mg PO DAILY Refresh Relieva 0.5-0.9% Drop (Carboxymethylcellulos/Glycerin) 10 Ml Drops 2 Drops OU PRN Rosuvastatin Calcium 5 Mg Tablet 5 Mg PO DAILY Xarelto (Rivaroxaban) 20 Mg Tablet 20 Mg PO DAILY Clindamycin HCl 300 Mg Capsule 300 Mg PO Q8H FILLED 12-28-2019 #30/10 DAY SUPPLY Instructions to patient/family Please see electronic discharge instructions given to patient. Clinical Quality Measures DVT/VTE Risk/Contraindication: Risk Factor Score Per Nursin RFS Level Per Nursing on Admit: 4+=Very High ANUPAM MARTIN,MED STUDENT Jan 05, 2020 11:43
[2020-01-05] MEDS ORDERED: proPOfol 200 MG/20 ML (DIPRIVAN) VIAL IV ONE (11:51)
[2020-01-05] MEDS ORDERED: MIDAZOLAM 2 MG/2 ML (VERSED) VIAL ONE (11:51)
[2020-01-05] MEDS ORDERED: HURRICAINE EXT TUBE (BENZOCAINE) ONE (11:51)
[2020-01-05] MEDS ORDERED: NS IV 500 ML 500 ML ONE (11:52)
[2020-01-05 12:00] VITALS: BP 134/70
[2020-01-05] MEDS ORDERED: SUCCINYLCHOLINE INJ 100 MG/5 ML SYR ONE (12:00)
[2020-01-05 12:20] VITALS: BP 127/65
[2020-01-05] MEDS ORDERED: NS IV 500 ML 500 ML IV PRN (12:22)
[2020-01-05] MEDS ORDERED: HURRICAINE EXT TUBE (BENZOCAINE) XX PRN (12:30)
--- NOTE | 2020-01-05 12:34 | NUR ---
Juliette, RN with Endoscopy report that the patient had emesis during her procedure and reports that the patient has a minimal amount of coughing after she awoke from the procedure, this RN will cont. to monitor this patient for signs of possible aspiration, from emesis during the procedure.
--- NOTE | 2020-01-05 13:07 | Anesthesia-General Post-Op ---
MAC Patient Condition Mental Status/LOC: Same as Preop Cardiovascular: Satisfactory Nausea/Vomiting: Absent Respiratory: Satisfactory Pain: Controlled Complications: Absent Post Op Complications Complications None Follow Up Care/Instructions Patient Instructions None needed. Anesthesiology Discharge Order Discharge Order Patient is doing well, no complaints, stable vital signs, no apparent adverse anesthesia problems. ANNALEE RUTLEDGE DO Jan 05, 2020 13:07
--- NOTE | 2020-01-05 13:10 | Progress Note - Cardiology ---
Cardiology SOAP Progress Note Subjective: No cp or palp or syncope or shortness of breath Continuing nausea and vomiting Abd pain improved Gen malaise present Objective: I&O/Vital Signs 01/05/20 01/05/20 01/05/20 01/05/20 04:00 07:00 08:00 08:00 Temp 36.3 36.1 Pulse 52 75 91 Resp 16 22 B/P (MAP) 121/65 (83) 154/80 (104) Pulse Ox 97 97 O2 Delivery Room Air Room Air Room Air 01/05/20 01/05/20 12:00 12:20 Temp 36.2 Pulse 78 93 Resp 18 16 B/P (MAP) 134/70 (91) Pulse Ox 96 96 O2 Delivery Room Air Room Air 01/05/20 00:00 Intake Total 1230 ml Output Total 806 ml Balance 424 ml Constitutional: AAO x 3, apparent distress (abd pain and a nausea/vomiting at time of this exam), well-developed, well-nourished Respiratory: No accessory muscle use; other (good bilat air entry) Cardiovascular: regular rate-rhythm, S1 and S2, systolic murmur Gastrointestional: tender; No guarding; rebound, audible bowel sounds Extremities: No clubbing, No cyanosis, No significant edema Neurologic/Psychiatric: oriented x 3, other (moves all limbs equally) Skin: warm/dry; No rash, No ulcerations Results/Procedures: Labs Laboratory Tests 01/05/20 06:00: White Blood Count 8.7, Red Blood Count 4.77, Hemoglobin 14.2, Hematocrit 43, Mean Corpuscular Volume 90, Mean Corpuscular Hemoglobin 30, Mean Corpuscular Hemoglobin Concent 33, Red Cell Distribution Width 14.9H, Platelet Count 270, Mean Platelet Volume 10.1, Neutrophils (%) (Auto) 69, Lymphocytes (%) (Auto) 23, Monocytes (%) (Auto) 7, Eosinophils (%) (Auto) 1, Basophils (%) (Auto) 0, Neutrophils # (Auto) 6.0, Lymphocytes # (Auto) 2.0, Monocytes # (Auto) 0.6, Eosinophils # (Auto) 0.1, Basophils # (Auto) 0.0, Sodium Level 137, Potassium Level 4.5, Chloride Level 103, Carbon Dioxide Level 20L, Anion Gap 14, Blood Urea Nitrogen 12, Creatinine 0.81, Estimat Glomerular Filtration Rate > 60, BUN/Creatinine Ratio 15, Glucose Level 109H, Calcium Level 9.7, Corrected Calc ium 9.3, Total Bilirubin 1.0, Aspartate Amino Transf (AST/SGOT) 13, Alanine Aminotransferase (ALT/SGPT) 10, Alkaline Phosphatase 99, Total Protein 7.7, Albumin 4.5 Microbiology 01/04/20 Influenza Types A,B Antigen (NICHOLAS) - Final, Complete Laboratory Tests 01/04/20 06:14 01/05/20 06:00 A/P: Assessment: Abd pain of undetermined etiology, managed by the [facility] MPI of 12/31/19: minimal amount of apical ischemia, normal regional wall motion, LVEF 72% Carotid u/s of Oct 2019 showed no significant carotid arterial dz AAA scan of Oct 2019 showed no evidence of AAA Hypertension Obesity BMI approx 32 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
[2020-01-05 13:43] VITALS: BP 127/65
--- NOTE | 2020-01-05 14:25 | Progress Note-Post Operative ---
Post-Operative Progess Note Surgeon (s)/Loss Prevention Officer (s) Surgeon BITA GARRIDO DO Loss Prevention Officer: none Pre-Operative Diagnosis burning abd pain Post-Operative Diagnosis Esophagitis Hiatal Hernia Gastritis Procedure & Operative Findings Date of Procedure 01/05/20 Procedure Performed/Findings EGD with bx Anesthesia Type IV sedation by Anesthesia Estimated Blood Loss Estimated blood loss (mL): scant Specimens/Packing Specimens Removed antral bx body of stomach bx GE jxn bx Lower esophageal bx BITA GARRIDO DO Jan 05, 2020 14:25
--- NOTE | 2020-01-05 14:35 | NUR ---
Pt requested follow up visit. She said she did not receive her pain medication all night and was afraid, expressed confusion and concern stating she could hear people next to her room yelling and exchanging drugs. She also said someone came into her room claiming to be an under-cover officer. She said she reported this to the nurse. States she wants to discharge as soon as possible. MASSIMO Diggs visited and brought in discharge papers, then offered to return after we visited. The patient's adult daughter was present. She introduced herself using [place]ese sign-language and remained for our visit. The pt said she requested me because she was feeling anxious and appreciated our follow up visit.
--- OUTSIDE RECORDS SUMMARY | 2020-01-09 12:22 | XMS REPORT | Continuity of Care Document ---
Author Organization Unknown Address Unknown Phone Unavailable Allergies Active Description Code Type Severity Reaction Onset Reported/Identified Relationship to Patient Clinical Status Yes morphine [id number] Drug Allergy Unknown N/A 09/03/2019 Yes tramadol [id number] Drug Allergy Unknown N/A 09/03/2019 Medications There is no data. Problems Date Dx Coded Attending Type Code Diagnosis Diagnosed By 09/03/2019 NAHUN BOWEN MD, Ot F17.200 NICOTINE DEPENDENCE, UNSPECIFIED, UNCOMP 09/03/2019 NAHUN BOWEN MD Ot I10 ESSENTIAL (PRIMARY) HYPERTENSION 09/03/2019 NAHUN BOWEN MD Ot I48.91 UNSPECIFIED ATRIAL FIBRILLATION 09/03/2019 NAHUN BOWEN MD Ot M54.5 LOW BACK PAIN 09/03/2019 NAHUN BOWEN MD Ot R07.89 OTHER CHEST PAIN 09/03/2019 NAHUN BOWEN MD Ot R07.9 CHEST PAIN, UNSPECIFIED 09/03/2019 NAHUN BOWEN MD Ot Z79.01 CORRECTION (CURRENT) USE OF ANTICOAGULANT 09/03/2019 NAHUN BOWEN MD Ot Z88.5 ALLERGY STATUS TO NARCOTIC AGENT STATUS 09/07/2019 NAHUN BOWEN MD Ot F17.200 NICOTINE DEPENDENCE, UNSPECIFIED, UNCOMP 09/07/2019 NAHUN BOWEN MD Ot I10 ESSENTIAL (PRIMARY) HYPERTENSION 09/07/2019 NAHUN BOWEN MD Ot I48.91 UNSPECIFIED ATRIAL FIBRILLATION 09/07/2019 NAHUN BOWEN MD, Ot M54.5 LOW BACK PAIN 09/07/2019 NAHUN BOWEN MD Ot R07.89 OTHER CHEST PAIN 09/07/2019 NAHUN BOWEN MD Ot R07.9 CHEST PAIN, UNSPECIFIED 09/07/2019 NAHUN BOWEN MD Ot Z79.01 CORRECTION (CURRENT) USE OF ANTICOAGULANT 09/07/2019 JESSI MCCRARY NAHUN Schaefer Ot Z88.5 ALLERGY STATUS TO NARCOTIC AGENT STATUS 10/08/2019 MERON ZEPEDA [employer] [facility] Ot I10 ESSENTIAL (PRIMARY) HYPERTENSION 10/08/2019 MERON ZEPEDA [employer] [facility] Ot I34.0 NONRHEUMATIC MITRAL (VALVE) INSUFFICIENC 10/08/2019 MERON ZEPEDA [employer] [facility] Ot I48.0 PAROXYSMAL ATRIAL FIBRILLATION 10/08/2019 MERON ZEPEDA [employer] Ot I51.7 CARDIOMEGALY 10/22/2019 RUDI MCCRARY FACC, ALI FACP CCDS Ot R06.02 SHORTNESS OF BREATH 10/22/2019 RUDI MCCRARY FACC, ALI FACP CCDS Ot R06.02 SHORTNESS OF BREATH 10/26/2019 RUDI MCCRARY FACC, ALI FACP CCDS Ot R06.02 SHORTNESS OF BREATH 11/05/2019 MERON ZEPEDA APRN Ot I10 ESSENTIAL (PRIMARY) HYPERTENSION 11/05/2019 MERON ZEPEDA APRN Ot I34.0 NONRHEUMATIC MITRAL (VALVE) INSUFFICIENC 11/05/2019 MERON ZEPEDA [employer] [facility] Ot I48.0 PAROXYSMAL ATRIAL FIBRILLATION 11/05/2019 MERON ZEPEDA [employer] [facility] Ot I51.7 CARDIOMEGALY 11/29/2019 MERON ZEPEDA [employer] [facility] Ot I10 ESSENTIAL (PRIMARY) HYPERTENSION 11/29/2019 MERON ZEPEDA APRN Ot I34.0 NONRHEUMATIC MITRAL (VALVE) INSUFFICIENC 11/29/2019 MERON ZEPEDA APRN Ot I48.0 PAROXYSMAL ATRIAL FIBRILLATION 11/29/2019 MERON ZEPEDA [employer] Ot I51.7 CARDIOMEGALY 12/31/2019 RUDI MCCRARY FACC, JOCELYN FACP CCDS Ot R06.02 SHORTNESS OF BREATH 01/05/2020 RUDI MCCRARY FACC, ALI FACP CCDS Ot 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 01/05/2020 RUDI MCCRARY FACC, ALI FACP CCDS Ot I10 ESSENTIAL (PRIMARY) HYPERTENSION 01/05/2020 RUDI MCCRARY FACC, ALI FACP CCDS Ot R06.02 SHORTNESS OF BREATH 01/05/2020 RUDI MCCRARY FACC, JOCELYN FACP CCDS Ot R07.89 OTHER CHEST PAIN 01/05/2020 RUDI MCCRARY FACC, JOCELYN FACP CCDS Ot Z72.0 TOBACCO USE 01/05/2020 LAMAS DO, DALTON Ot E03.9 HYPOTHYROIDISM, UNSPECIFIED 01/05/2020 LAMAS DO, DALTON Ot E66.9 OBESITY, UNSPECIFIED 01/05/2020 LAMAS DO, DALTON Ot F17.21 0 NICOTINE DEPENDENCE, CIGARETTES, UNCOMPL 01/05/2020 LAMAS DO, DALTON Ot G47.30 SLEEP APNEA, UNSPECIFIED 01/05/2020 LAMAS DO, DALTON Ot G62.9 POLYNEUROPATHY, UNSPECIFIED 01/05/2020 LAMAS DO, DALTON Ot I10 ESSENTIAL (PRIMARY) HYPERTENSION 01/05/2020 LAMAS DO, DALTON Ot I25.10 ATHSCL HEART DISEASE OF [place] CORONARY 01/05/2020 LAMAS DO, DALTON Ot I25.2 OLD MYOCARDIAL INFARCTION 01/05/2020 LAMAS DO, DALTON Ot I34.0 NONRHEUMATIC MITRAL (VALVE) INSUFFICIENC 01/05/2020 LAMAS DO, DALTON Ot I48.0 PAROXYSMAL ATRIAL FIBRILLATION 01/05/2020 LAMAS DO, DALTON Ot K56.51 INTESTINAL ADHESIONS [BANDS], WITH PARTI 01/05/2020 LAMAS DO, DALTON Ot K57.90 DVRTCLOS OF INTEST, PART UNSP, W/O PERF 01/05/2020 LAMAS DO, DALTON Ot K59.00 CONSTIPATION, UNSPECIFIED 01/05/2020 LAMAS DO, DALTON Ot M06.9 RHEUMATOID ARTHRITIS, UNSPECIFIED 01/05/2020 LAMAS DO, DALTON Ot M54.9 DORSALGIA, UNSPECIFIED 01/05/2020 LAMAS DO, DALTON Ot Z68.35 BODY MASS INDEX (BMI) 35.0-35.9, ADULT 01/05/2020 LAMAS DO, DALTON Ot Z79.01 COMMERCIAL GLAZIER (CURRENT) USE OF ANTICOAGULANT 01/06/2020 RUDI MCCRARY FACC, JOCELYN FACP CCDS Ot 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 01/06/2020 RUDI MCCRARY FACC, JOCELYN FACP CCDS Ot I10 ESSENTIAL (PRIMARY) HYPERTENSION 01/06/2020 RUDI MCCRARY FACC, JOCELYN FACP CCDS Ot R06.02 SHORTNESS OF BREATH 01/06/2020 [facility], ALI FACP CCDS Ot R07.89 OTHER CHEST PAIN 01/06/2020 [facility], ALI FACP CCDS Ot Z72.0 TOBACCO USE 01/07/2020 [facility], ALI FACP CCDS Ot 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 Results Test Result Range T3 FREE - 08/30/19 11:55 T3, FREE 3.3 pg/mL 2.3-4.2 Complete blood count (CBC) with automate d white blood cell (WBC) differential - 09/03/19 15:15 Blood leukocytes automated count (number/volume) 6.0 10*3/uL 4.3-11.0 Blood erythrocytes automated count (number/volume) 4.11 10*6/uL 4.35-5.85 Venous blood hemoglobin measurement (mass/volume) 12.4 g/dL 11.5-16.0 Blood hematocrit (volume fraction) 38 % 35-52 Automated erythrocyte mean corpuscular volume 93 [ foz_us] 80-99 Automated erythrocyte mean corpuscular h emoglobin (mass per erythrocyte) 30 pg 25-34 Automated erythrocyte mean corpuscular h emoglobin concentration measurement (mass/volume) 33 g/dL 32-36 Automated erythrocyte distribution width ratio 14. 0 % 10.0- 14.5 Automated blood platelet count (count/volume) 268 10*3/uL 130-400 Automated blood platelet mean volume measurement 10.6 [foz_us] 7.4-10.4 Automated blood neutrophils/100 leukocytes 31 % 42-75 Automated blood lymphocytes/100 leukocytes 56 % 12-44 Blood monocytes/100 leukocytes 9 % 0-12 Automated blood eosinophils/100 leukocytes 3 % 0-10 Automated blood basophils/100 leukocytes 1 % 0-10 Blood neutrophils automated count (number/volume) 1.9 10*3 1.8-7.8 Blood lymphocytes automated count (number/volume) 3.3 10*3 1.0-4.0 Blood monocytes automated count (number/volume) 0. 6 10*3 0.0-1.0 Automated eosinophil count 0.2 10*3/uL 0 .0-0.3 Automated blood basophil count (count/volume) 0.0 10*3/uL 0.0-0.1 Comprehensive metabolic panel - 09/03/19 15:15 Serum or plasma sodium measurement (moles/volume) 141 mmol/L 135-145 Serum or plasma potassium measurement (moles/volume) 2.9 mmol/L 3.6-5.0 Serum or plasma chloride measurement (moles/volume) 106 mmol/L 98-107 Carbon dioxide 27 mmol/L 21-32 Serum or plasma anion gap determination (moles/volume) 8 mmol/L 5-14 Serum or plasma urea nitrogen measurement (mass/volume ) 8 mg/dL 7-18 Serum or plasma creatinine measurement (mass/volume) 0.77 mg/dL 0.60-1.30 Serum or plasma urea nitrogen/creatinine mass ratio 10 NRG Serum or plasma creatinine measurement w ith calculation of estimated glomerular filtration rate > NRG Serum or plasma glucose measurement (mass/volume) 96 mg/dL 70-105 Serum or plasma calcium measurement (mass/volume) 8.8 mg/dL 8.5-10.1 Serum or plasma total bilirubin measurement (mass/volu me) 0.5 mg/dL 0.1-1.0 Serum or plasma alkaline phosphatase yara surement (enzymatic activity/volume) 106 U/L 40-136 Serum or plasma aspartate aminotransfera se measurement (enzymatic activity/volume) 13 U/L 5-34 Serum or plasma alanine aminotransferase measurement (enzymatic activity/volume) 12 U/L 0-55 Serum or plasma protein measurement (mass/volume) 6.3 g/dL 6.4-8.2 Serum or plasma albumin measurement (mass/volume) 3.9 g/dL 3.2-4.5 CALCIUM CORRECTED 8.9 mg/dL 8.5-10.1 Magnesium - 09/03/19 15:15 Magnesium 1.9 mg/dL 1.6-2.4 PT panel in platelet poor plasma by coag ulation assay - 09/03/19 15:15 Prothrombin time (PT) in platelet poor plasma by coagu lation assay 15.0 s 12.2-14.7 INR in platelet poor plasma or blood by coagulation as say 1.1 0.8-1.4 Activated partial thromboplastin time (a PTT) in platelet poor plasma bycoagulation assay - 09/03/19 15:15 Activated partial thromboplastin time (a PTT) in platelet poor plasma bycoagulation assay 35 s 24-35 Serum or plasma troponin i.cardiac measu rement (mass/volume) - 09/03/19 15:15 Serum or plasma troponin i.cardiac measurement (mass/v olume) < ng/mL <0.028 Myoglobin, serum - 09/03/19 15:15 Myoglobin, serum 23.4 ng/mL 10.0-92.0 PDM - PAIN MGMT (PROFILE 3 WITH CONFIRMA TION) - 09/29/19 09:24 Prescribed Drug 1 Oxycodone NRG Creatinine 126.2 mg/dL > or = 20.0 pH 8.2 4.5-9.0 Oxidant NEGATIVE mcg/mL <200 Amphetamines NEGATIVE ng/mL <500 medMATCH Amphetamines CONSISTENT NRG Benzodiazepines NEGATIVE ng/mL <100 medMATCH Benzodiazepines CONSISTENT NRG Marijuana Metabolite POSITIVE ng/mL <20 Cocaine Metabolite NEGATIVE ng/mL <150 medMATCH Cocaine Metab CONSISTENT NRG Opiates POSITIVE ng/mL <100 Oxycodone NEGATIVE ng/mL <100 medMATCH Oxycodone INCONSISTENT NRG COMMENT NRG Codeine NEGATIVE ng/mL <50 medMATCH Codeine CONSISTENT NRG Hydrocodone 160 ng/mL <50 medMATCH Hydrocodone INCONSISTENT NRG Hydromorphone 96 ng/mL <50 medMATCH Hydromorphone INCONSISTENT NRG Morphine NEGATIVE ng/mL <50 medMATCH Morphine CONSISTENT NRG Norhydrocodone 410 ng/mL <50 medMATCH Norhydrocodone See Note NRG Marijuana Metabolite 83 ng/mL <5 medMATCH Marijuana Metab INCONSISTENT N RG TSH w/ FREE T4 - 11/11/19 18:10 TSH 4.29 mIU/L 0.40-4.50 T4, FREE 0.9 ng/dL 0.8-1.8 T3 TOTAL - 11/11/19 18:10 T3, TOTAL 115 ng/dL 76-181 HEP C ANTIBODY - 12/28/19 16:10 HEPATITIS C ANTIBODY NON-REACTIVE NON-R EACTIVE SIGNAL TO CUT-OFF 0.03 <1.00 Complete urinalysis with reflex to cultu re - 01/03/20 02:16 Urine color determination YELLOW NRG Urine clarity determination CLEAR NR G Urine pH measurement by test strip 6.0 5-9 Specific gravity of urine by test strip 1.020 1.016-1.022 Urine protein assay by test strip, semi-quantitative NEGATIVE NEGATIVE Urine glucose detection by automated test strip NE GATIVE NEGATIVE Erythrocytes detection in urine sediment by light micr oscopy TRACE-I NEGATIVE Urine ketones detection by automated test strip NE GATIVE NEGATIVE Urine nitrite detection by test strip NEGATIVE NEGATIVE Urine total bilirubin detection by test strip NEGA TIVE NEGATIVE Urine urobilinogen measurement by automated test strip (mass/volume) 0.2 mg/dL < = 1.0 Urine leukocyte esterase detection by dipstick NEG ATIVE NEGATIVE Automated urine sediment erythrocyte cou nt by microscopy (number/high power field) [HPF] NRG Automated urine sediment leukocyte count by microscopy (number/high power field) NONE NRG Bacteria detection in urine sediment by light microsco py NEGATIVE NRG Squamous epithelial cells detection in u rine sediment by light microscopy 0-2 NRG Crystals detection in urine sediment by light microsco py NONE NRG Casts detection in urine sediment by light microscopy NONE NRG Mucus detection in urine sediment by light microscopy MODERATE NRG Complete urinalysis with reflex to culture NO NRG Complete blood count (CBC) with automate d white blood cell (WBC) differential - 01/03/20 02:45 Blood leukocytes automated count (number/volume) 8.2 10*3/uL 4.3-11.0 Blood erythrocytes automated count (number/volume) 4.45 10*6/uL 4.35-5.85 Venous blood hemoglobin measurement (mass/volume) 13.3 g/dL 11.5-16.0 Blood hematocrit (volume fraction) 40 % 35-52 Automated erythrocyte mean corpuscular volume 90 [ foz_us] 80-99 Automated erythrocyte mean corpuscular h emoglobin (mass per erythrocyte) 30 pg 25-34 Automated erythrocyte mean corpuscular h emoglobin concentration measurement (mass/volume) 33 g/dL 32-36 Automated erythrocyte distribution width ratio 15. 2 % 10.0- 14.5 Automated blood platelet count (count/volume) 287 10*3/uL 130-400 Automated blood platelet mean volume measurement 10.1 [foz_us] 7.4-10.4 Automated blood neutrophils/100 leukocytes 57 % 42-75 Automated blood lymphocytes/100 leukocytes 31 % 12-44 Blood monocytes/100 leukocytes 9 % 0-12 Automated blood eosinophils/100 leukocytes 3 % 0-10 Automated blood basophils/100 leukocytes 0 % 0-10 Blood neutrophils automated count (number/volume) 4.7 10*3 1.8-7.8 Blood lymphocytes automated count (number/volume) 2.6 10*3 1.0-4.0 Blood monocytes automated count (number/volume) 0. 7 10*3 0.0-1.0 Automated eosinophil count 0.2 10*3/uL 0 .0-0.3 Automated blood basophil count (count/volume) 0.0 10*3/uL 0.0-0.1 Blood lactic acid measurement (moles/vol ume) - 01/03/20 02:45 Blood lactic acid measurement (moles/volume) 0.91 mmol/L 0.50-2.00 Comprehensive metabolic panel - 01/03/20 02:45 Serum or plasma sodium measurement (moles/volume) 139 mmol/L 135-145 Serum or plasma potassium measurement (moles/volume) 3.7 mmol/L 3.6-5.0 Serum or plasma chloride measurement (moles/volume) 106 mmol/L 98-107 Carbon dioxide 20 mmol/L 21-32 Serum or plasma anion gap determination (moles/volume) 13 mmol/L 5-14 Serum or plasma urea nitrogen measurement (mass/volume ) 14 mg/dL 7-18 Serum or plasma creatinine measurement (mass/volume) 0.86 mg/dL 0.60-1.30 Serum or plasma urea nitrogen/creatinine mass ratio 16 NRG Serum or plasma creatinine measurement w ith calculation of estimated glomerular filtration rate > NRG Serum or plasma glucose measurement (mass/volume) 121 mg/dL 70-105 Serum or plasma calcium measurement (mass/volume) 9.4 mg/dL 8.5-10.1 Serum or plasma total bilirubin measurement (mass/volu me) 0.5 mg/dL 0.1-1.0 Serum or plasma alkaline phosphatase yara surement (enzymatic activity/volume) 114 U/L 40-136 Serum or plasma aspartate aminotransfera se measurement (enzymatic activity/volume) 11 U/L 5-34 Serum or plasma alanine aminotransferase measurement (enzymatic activity/volume) 10 U/L 0-55 Serum or plasma protein measurement (mass/volume) 7.4 g/dL 6.4-8.2 Serum or plasma albumin measurement (mass/volume) 4.5 g/dL 3.2-4.5 CALCIUM CORRECTED 9.0 mg/dL 8.5-10.1 Lipase - 01/03/20 02:45 Lipase 76 U/L 8-78 Complete blood count (CBC) with automate d white blood cell (WBC) differential - 01/04/20 06:14 Blood leukocytes automated count (number/volume) 7.0 10*3/uL 4.3-11.0 Blood erythrocytes automated count (number/volume) 4.65 10*6/uL 4.35-5.85 Venous blood hemoglobin measurement (mass/volume) 13.9 g/dL 11.5-16.0 Blood hematocrit (volume fraction) 43 % 35-52 Automated erythrocyte mean corpuscular volume 91 [ foz_us] 80-99 Automated erythrocyte mean corpuscular h emoglobin (mass per erythrocyte) 30 pg 25-34 Automated erythrocyte mean corpuscular h emoglobin concentration measurement (mass/volume) 33 g/dL 32-36 Automated erythrocyte distribution width ratio 15. 1 % 10.0- 14.5 Automated blood platelet count (count/volume) 254 10*3/uL 130-400 Automated blood platelet mean volume measurement 10.4 [foz_us] 7.4-10.4 Automated blood neutrophils/100 leukocytes 72 % 42-75 Automated blood lymphocytes/100 leukocytes 19 % 12-44 Blood monocytes/100 leukocytes 8 % 0-12 Automated blood eosinophils/100 leukocytes 1 % 0-10 Automated blood basophils/100 leukocytes 0 % 0-10 Blood neutrophils automated count (number/volume) 5.0 10*3 1.8-7.8 Blood lymphocytes automated count (number/volume) 1.3 10*3 1.0-4.0 Blood monocytes automated count (number/volume) 0. 6 10*3 0.0-1.0 Automated eosinophil count 0.1 10*3/uL 0 .0-0.3 Automated blood basophil count (count/volume) 0.0 10*3/uL 0.0-0.1 Comprehensive metabolic panel - 01/04/20 06:14 Serum or plasma sodium measurement (moles/volume) 136 mmol/L 135-145 Serum or plasma potassium measurement (moles/volume) 4.3 mmol/L 3.6-5.0 Serum or plasma chloride measurement (moles/volume) 105 mmol/L 98-107 Carbon dioxide 20 mmol/L 21-32 Serum or plasma anion gap determination (moles/volume) 11 mmol/L 5-14 Serum or plasma urea nitrogen measurement (mass/volume ) 12 mg/dL 7-18 Serum or plasma creatinine measurement (mass/volume) 0.75 mg/dL 0.60-1.30 Serum or plasma urea nitrogen/creatinine mass ratio 16 NRG Serum or plasma creatinine measurement w ith calculation of estimated glomerular filtration rate > NRG Serum or plasma glucose measurement (mass/volume) 115 mg/dL 70-105 Serum or plasma calcium measurement (mass/volume) 9.5 mg/dL 8.5-10.1 Serum or plasma total bilirubin measurement (mass/volu me) 0.7 mg/dL 0.1-1.0 Serum or plasma alkaline phosphatase yara surement (enzymatic activity/volume) 108 U/L 40-136 Serum or plasma aspartate aminotransfera se measurement (enzymatic activity/volume) 14 U/L 5-34 Serum or plasma alanine aminotransferase measurement (enzymatic activity/volume) 7 U/L 0-55 Serum or plasma protein measurement (mass/volume) 7.5 g/dL 6.4-8.2 Serum or plasma albumin measurement (mass/volume) 4.5 g/dL 3.2-4.5 CALCIUM CORRECTED 9.1 mg/dL 8.5-10.1 Influenza virus A and B antigen detectio n - 01/04/20 16:45 FLU RESULT NEGATIVE FOR INFLUENZA A AND B ANTIGENS BY IA NRG Methicillin resistant Staphylococcus aur eus (MRSA) screening culture - 01/04/20 16:50 Methicillin resistant Staphylococcus aureus (MRSA) scr eening culture NEG NR Complete blood count (CBC) with automate d white blood cell (WBC) differential - 01/05/20 06:00 Blood leukocytes automated count (number/volume) 8.7 10*3/uL 4.3-11.0 Blood erythrocytes automated count (number/volume) 4.77 10*6/uL 4.35-5.85 Venous blood hemoglobin measurement (mass/volume) 14.2 g/dL 11.5-16.0 Blood hematocrit (volume fraction) 43 % 35-52 Automated erythrocyte mean corpuscular volume 90 [ foz_us] 80-99 Automated erythrocyte mean corpuscular h emoglobin (mass per erythrocyte) 30 pg 25-34 Automated erythrocyte mean corpuscular h emoglobin concentration measurement (mass/volume) 33 g/dL 32-36 Automated erythrocyte distribution width ratio 14. 9 % 10.0- 14.5 Automated blood platelet count (count/volume) 270 10*3/uL 130-400 Automated blood platelet mean volume measurement 10.1 [foz_us] 7.4-10.4 Automated blood neutrophils/100 leukocytes 69 % 42-75 Automated blood lymphocytes/100 leukocytes 23 % 12-44 Blood monocytes/100 leukocytes 7 % 0-12 Automated blood eosinophils/100 leukocytes 1 % 0-10 Automated blood basophils/100 leukocytes 0 % 0-10 Blood neutrophils automated count (number/volume) 6.0 10*3 1.8-7.8 Blood lymphocytes automated count (number/volume) 2.0 10*3 1.0-4.0 Blood monocytes automated count (number/volume) 0. 6 10*3 0.0-1.0 Automated eosinophil count 0.1 10*3/uL 0 .0-0.3 Automated blood basophil count (count/volume) 0.0 10*3/uL 0.0-0.1 Comprehensive metabolic panel - 01/05/20 06:00 Serum or plasma sodium measurement (moles/volume) 137 mmol/L 135-145 Serum or plasma potassium measurement (moles/volume) 4.5 mmol/L 3.6-5.0 Serum or plasma chloride measurement (moles/volume) 103 mmol/L 98-107 Carbon dioxide 20 mmol/L 21-32 Serum or plasma anion gap determination (moles/volume) 14 mmol/L 5-14 Serum or plasma urea nitrogen measurement (mass/volume ) 12 mg/dL 7-18 Serum or plasma creatinine measurement (mass/volume) 0.81 mg/dL 0.60-1.30 Serum or plasma urea nitrogen/creatinine mass ratio 15 NRG Serum or plasma creatinine measurement w ith calculation of estimated glomerular filtration rate > NRG Serum or plasma glucose measurement (mass/volume) 109 mg/dL 70-105 Serum or plasma calcium measurement (mass/volume) 9.7 mg/dL 8.5-10.1 Serum or plasma total bilirubin measurement (mass/volu me) 1.0 mg/dL 0.1-1.0 Serum or plasma alkaline phosphatase yara surement (enzymatic activity/volume) 99 U/L 40-136 Serum or plasma aspartate aminotransfera se measurement (enzymatic activity/volume) 13 U/L 5-34 Serum or plasma alanine aminotransferase measurement (enzymatic activity/volume) 10 U/L 0-55 Serum or plasma protein measurement (mass/volume) 7.7 g/dL 6.4-8.2 Serum or plasma albumin measurement (mass/volume) 4.5 g/dL 3.2-4.5 CALCIUM CORRECTED 9.3 mg/dL 8.5-10.1 Encounters ACCT No. Visit Date/Time Discharge Status Pt. Type Provider Facility Loc./Unit Complaint [id number] 12/28/2019 14:20:00 12/28/2019 23:59: 59 CLS Outpatient MERON ZEPEDA [facility] [place] [id number] 12/28/2019 14:20:00 Document Registration [id number] 11/11/2019 16:40:00 Document Registration [id number] 09/29/2019 09:00:00 Document Registration [id number] 08/30/2019 11:40:00 Document Registration [id number] 01/03/2020 04:56:00 13:45:00 DIS Inpatient DALTON LAMAS DO, [facility] 4TH SMALL BOWEL OBSTRUCTION ,BURNING ABD PAIN [id number] 12/31/2019 06:50:00 23:59:59 CLS Outpatient JOCELYN GRIJALVA MD, FACC, FACP CC DS [facility] CARD SOB,CHEST DISCOMFORT,SMOKING,TOBACCO USER,HT [id number] 10/26/2019 11:30:00 23:59:59 CLS Preadmit JOCELYN GRIJALVA MD, FACC, FACP CCDS [facility] CARD SOB,CHEST DISCOMFORT,HT,SMOKING,TOBACCO USER [id number] 10/04/2019 12:49:00 23:59:59 CLS Outpatient MERON ZEPEDA APRN [facility] CARD HTN,PAROXYSMAL AFIB [id number] 09/03/2019 14:23:00 17:28:00 DIS Emergency JESSI MCCRARY, NAHUN Schaefer [facility] ER CHEST PAIN
--- OUTSIDE RECORDS SUMMARY | 2020-01-09 13:30 | XMS REPORT | Continuity of Care Document ---
Author Organization Unknown Address Unknown Phone Unavailable Allergies Active Description Code Type Severity Reaction Onset Reported/Identified Relationship to Patient Clinical Status Yes morphine [id number] Drug Allergy Unknown N/A 09/03/2019 Yes tramadol [id number] Drug Allergy Unknown N/A 09/03/2019 Medications There [...] UNSPECIFIED 09/03/2019 NAHUN BOWEN MD Ot Z79.01 DETENTION (CURRENT) USE OF ANTICOAGULANT 09/03/2019 NHAUN BOWEN MD Ot Z88.5 ALLERGY STATUS TO [...] UNSPECIFIED 09/07/2019 NAHUN BOWEN MD Ot Z79.01 DETENTION (CURRENT) USE OF ANTICOAGULANT 09/07/2019 JESSI MCCRARY NAHUN Schaefer Ot Z88.5 ALLERGY STATUS TO NARCOTIC AGENT STATUS 10/08/2019 MERON ZEPEDA ELECTRICAL MAINTENANCE SUPERVISOR Ot I10 ESSENTIAL (PRIMARY) HYPERTENSION 10/08/2019 MERON ZEPEDA ELECTRICAL MAINTENANCE SUPERVISOR Ot I34.0 NONRHEUMATIC MITRAL (VALVE) INSUFFICIENC 10/08/2019 MERON ZEPEDA ELECTRICAL MAINTENANCE SUPERVISOR Ot I48.0 PAROXYSMAL ATRIAL FIBRILLATION 10/08/2019 MERON ZEPEDA ELECTRICAL MAINTENANCE SUPERVISOR Ot I51.7 CARDIOMEGALY 10/22/2019 RUDI MCCRARY FACC, ALI FACP CCDS Ot R06.02 SHORTNESS OF BREATH 10/22/2019 RUDI MCCRARY FACC, ALI FACP CCDS Ot R06.02 SHORTNESS OF BREATH 10/26/2019 RUDI MCCRARY FACC, ALI FACP CCDS Ot R06.02 SHORTNESS OF BREATH 11/05/2019 MERON ZEPEDA APRN Ot I10 ESSENTIAL (PRIMARY) HYPERTENSION 11/05/2019 MERON ZEPEDA APRN Ot I34.0 NONRHEUMATIC MITRAL (VALVE) INSUFFICIENC 11/05/2019 MERON ZEPEDA ELECTRICAL MAINTENANCE SUPERVISOR Ot I48.0 PAROXYSMAL ATRIAL FIBRILLATION 11/05/2019 MERON ZEPEDA ELECTRICAL MAINTENANCE SUPERVISOR Ot I51.7 CARDIOMEGALY 11/29/2019 MERON ZEPEDA ELECTRICAL MAINTENANCE SUPERVISOR Ot I10 ESSENTIAL (PRIMARY) HYPERTENSION 11/29/2019 MERON ZEPEDA APRN Ot I34.0 NONRHEUMATIC MITRAL (VALVE) INSUFFICIENC 11/29/2019 MERON ZEPEDA APRN Ot I48.0 PAROXYSMAL ATRIAL FIBRILLATION 11/29/2019 MERON ZEPEDA ELECTRICAL MAINTENANCE SUPERVISOR Ot I51.7 CARDIOMEGALY 12/31/2019 RUDI MCCRARY FACC, [...] DALTON Ot I25.10 ATHSCL HEART DISEASE OF [place] CORONARY 01/05/2020 LAMAS DO, DALTON Ot I25.2 [...] ADULT 01/05/2020 LAMAS DO, DALTON Ot 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 01/06/2020 RUDI MCCRARY FACC, JOCELYN FACP CCDS Ot 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 01/06/2020 RUDI MCCRARY FACC, JOCELYN FACP CCDS Ot I10 ESSENTIAL (PRIMARY) HYPERTENSION 01/06/2020 RUDI MCCRARY FACC, JOCELYN FACP CCDS Ot R06.02 SHORTNESS OF BREATH 01/06/2020 [facility], ALI FACP CCDS Ot R07.89 OTHER CHEST PAIN 01/06/2020 [facility], ALI FACP CCDS Ot Z72.0 TOBACCO USE 01/07/2020 [facility], ALI FACP CCDS Ot 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 Type Provider Facility Loc./Unit Complaint [id number] 12/28/2019 14:20:00 12/28/2019 23:59: 59 CLS Outpatient MERON ZEPEDA [facility] [place] [id number] 12/28/2019 14:20:00 Document Registration [id number] 11/11/2019 16:40:00 Document Registration [id number] 09/29/2019 09:00:00 Document Registration [id number] 08/30/2019 11:40:00 Document Registration [id number] 01/03/2020 04:56:00 13:45:00 DIS Inpatient DALTON LAMAS DO, [facility] 4TH SMALL BOWEL OBSTRUCTION ,BURNING ABD PAIN [id number] 12/31/2019 06:50:00 23:59:59 CLS Outpatient JOCELYN GRIJALVA MD, FACC, FACP CC DS [facility] CARD SOB,CHEST DISCOMFORT,SMOKING,TOBACCO USER,HT [id number] 10/26/2019 11:30:00 23:59:59 CLS Preadmit JOCELYN GRIJALVA MD, FACC, FACP CCDS [facility] CARD SOB,CHEST DISCOMFORT,HT,SMOKING,TOBACCO USER [id number] 10/04/2019 12:49:00 23:59:59 CLS Outpatient MERON ZEPEDA APRN [facility] CARD HTN,PAROXYSMAL AFIB [id number] 09/03/2019 14:23:00 17:28:00 DIS Emergency JESSI MCCRARY, NAHUN Schaefer [facility] ER CHEST PAIN
--- NOTE | 2020-01-10 22:37 | OPERATIVE REPORT ---
DATE OF SERVICE: 01/05/2020 PREOPERATIVE DIAGNOSIS: Burning abdominal pain. POSTOPERATIVE DIAGNOSES: Esophagitis, hiatal hernia, gastritis. PROCEDURE: EGD with biopsy. SURGEON: Terence Espino DO GENETICS PHYSICIAN: None. ANESTHESIA: IV sedation by anesthesia. SPECIMEN: Biopsy from the antrum, biopsy of body of stomach, biopsy from the GE junction, biopsy of the lower esophagus. INDICATION FOR PROCEDURE: The patient is a 64-year-old female who has severe burning abdominal pain and needed a workup. FINDINGS: The patient had some esophagitis in the lower esophagus. She also had a hiatal hernia and some gastritis. PROCEDURE NOTE: After informed consent was obtained, the patient was brought to the endoscopy suite, placed in bed in left lateral decubitus position. She was administered IV sedation by the anesthesiologist, who then monitored her vitals the entire time, heart rate, blood pressure and pulse ox and the scope was inserted down the mouth through the esophagus into the stomach. On the way down, in the lower esophagus, saw some esophagitis. Picture was taken and then pushed into the stomach and then towards the antrum. A little bit of erythema in the antrum, did a biopsy here. Retroflexed the scope, did a biopsy of body of stomach, saw a small hiatal hernia, took a picture and then pulled the scope back up into the GE junction and did a biopsy and then did a biopsy of what looked like erosions in the lower esophagus. All these were sent to pathology. Pushed the scope back into the stomach, suctioned this out and then pulled the scope up the esophagus and out the mouth. The patient tolerated the procedure, recovered in endoscopy suite. Job ID: [id number] DocumentID: [id number] Dictated Date: 01/10/2020 14:45:54 Blood Bank Laboratory Professional Date: 01/10/2020 22:36:09 Dictated By: TERENCE ESPINO DO
== END 2020-01-05 13:45 | disposition home or self-care (01) | DRG 390 ==
LOC: EDUNIT# 02:05 → ER 02:06 → 4TH 04:56
PROVIDERS: ADMIT Internal Medicine; ATTEND Internal Medicine
PROC: 0DB68ZX Excision of Stomach, Via Natural or Artificial Opening Endoscopic, Diagnostic (ICD-10-PCS; 2020-01-05)
PROC: 0DB48ZX Excision of Esophagogastric Junction, Via Natural or Artificial Opening Endoscopic, Diagnostic (ICD-10-PCS; 2020-01-05)
PROC: 0DB38ZX Excision of Lower Esophagus, Via Natural or Artificial Opening Endoscopic, Diagnostic (ICD-10-PCS; 2020-01-05)
PROC: 0DB78ZX Excision of Stomach, Pylorus, Via Natural or Artificial Opening Endoscopic, Diagnostic (ICD-10-PCS; principal; 2020-01-05 11:48)
DX: K56.51 Intestinal adhesions [bands], with partial obstruction (principal); K57.90 Diverticulosis of intestine, part unspecified, without perforation or abscess without bleeding; K59.00 Constipation, unspecified; K20.9 Esophagitis, unspecified; K29.70 Gastritis, unspecified, without bleeding; I25.10 Atherosclerotic heart disease of native coronary artery without angina pectoris; I10 Essential (primary) hypertension; I48.0 Paroxysmal atrial fibrillation; K44.9 Diaphragmatic hernia without obstruction or gangrene; F17.210 Nicotine dependence, cigarettes, uncomplicated; G62.9 Polyneuropathy, unspecified; E03.9 Hypothyroidism, unspecified; M54.9 Dorsalgia, unspecified; M06.9 Rheumatoid arthritis, unspecified; I34.0 Nonrheumatic mitral (valve) insufficiency; G47.30 Sleep apnea, unspecified; E66.9 Obesity, unspecified; I25.2 Old myocardial infarction; Z68.35 Body mass index [BMI] 35.0-35.9, adult; Z79.01 Long term (current) use of anticoagulants; Z90.49 Acquired absence of other specified parts of digestive tract; Z90.710 Acquired absence of both cervix and uterus
CPT/HCPCS: 36415; 74177; 74250; 80053; 81000; 83605; 83690; 85025; 87081; 87804; 88305; 88312; 96361; 96374; 96375

== ENCOUNTER → 2020-07-04 | Outpatient (CLI) | payer MEDICARE, MEDICAID ==
[~2020-07-04] MED LIST changes: +AMIT25TA9 PO; +AMLO10TA7 PO; +ASPI-983 PO; +BARIUM SUSPENSION 2.1% (VANILLA SILQ) 450 ML PO ONE; +CARB10DR5 OU; +CLIN300C11 PO; +DULO30CA49 PO; +GABA-488 PO; +HOLD METFORMIN - RECEIVED CONTRAST 20 ML VIAL IV SCH; +IOHEXOL 350 MG/ML 100 ML (OMNIPAQUE 350) VIAL IV ONE; +ISOS30TA3 PO; +METH5TAB5 PO; +NS 100 ML (IVPB) BAG IV ONE; +RIVA20TA PO; +ROSU5TAB13 PO
[2020-07-04 08:41] LABS: ALANINE AMINOTRANSFERASE 16 U/L (0-55); ALBUMIN 3.8 GM/DL (3.2-4.5); ALKALINE PHOSPHATASE 118 U/L (40-136); BILIRUBIN,TOTAL 0.6 MG/DL (0.1-1.0); BUN/CREATININE RATIO 15; CALCIUM 9.2 MG/DL (8.5-10.1); CARBON DIOXIDE 20 MMOL/L (21-32); CHLORIDE 107 MMOL/L (98-107); CREATININE SERUM 0.74 MG/DL (0.60-1.30); GFR ESTIMATED > 60; GLUCOSE 101 MG/DL (70-105); SODIUM 140 MMOL/L (135-145); TOTAL PROTEIN 7.3 GM/DL (6.4-8.2)
--- NOTE | 2020-07-04 10:18 | Diagnostic Imaging Report ---
EXAMINATION: CT Abdomen and Pelvis with intravenous contrast. TECHNIQUE: Multiple contiguous axial images were obtained through the abdomen and pelvis after the uneventful administration of intravenous contrast. All CT scans use one or more of the following dose optimizing techniques: automated exposure control, MA and/or KvP adjustment based on a patient size and exam type, or iterative reconstruction. HISTORY: Abdominal pain, prior bowel resection for obstruction COMPARISON: 01/03/2020 FINDINGS: Limited views of the lower thorax are unremarkable. The liver is normal without focal lesion. There is no biliary ductal dilation. Gallbladder is not seen. Pancreas is normal. Spleen is normal. Adrenal glands are normal. The kidneys are normal. There is no hydronephrosis. Urinary bladder is normal. Visualized bowel is normal in caliber without obstruction or inflammation. There is diverticulosis without diverticulitis. There are postsurgical changes of laparotomy. No free fluid or air. No abdominal or pelvic lymphadenopathy. Aorta is normal in caliber without aneurysm. There are no suspicious osseus lesions. IMPRESSION: 1. No acute abnormality in the abdomen or pelvis. Dictated by: Dictated on workstation # [id number]
== END ==
LOC: RAD 08:06
PROVIDERS: ATTEND Nurse Practitioner
DX: R10.9 Unspecified abdominal pain (principal); Z87.19 Personal history of other diseases of the digestive system; Z90.49 Acquired absence of other specified parts of digestive tract
CPT/HCPCS: 36415; 74177; 80053

== ENCOUNTER → 2020-09-06 | Outpatient (CLI) | payer MEDICARE, MEDICAID ==
[~2020-09-06] MED LIST changes: +AMLO-251 PO; -AMLO10TA7 PO; +ASPI-1238 PO; -ASPI-983 PO; -BARIUM SUSPENSION 2.1% (VANILLA SILQ) 450 ML PO ONE; -HOLD METFORMIN - RECEIVED CONTRAST 20 ML VIAL IV SCH; -IOHEXOL 350 MG/ML 100 ML (OMNIPAQUE 350) VIAL IV ONE; -NS 100 ML (IVPB) BAG IV ONE
[2020-09-06 14:29] LABS: BASOPHILS # (AUTO) 0.1 10^3/uL (0.0-0.1); BASOPHILS % (AUTO) 1 % (0-10); EOSINOPHILS # (AUTO) 0.3 10^3/uL (0.0-0.3); EOSINOPHILS % (AUTO) 4 % (0-10); HEMATOCRIT 38 % (35-52); HEMOGLOBIN 12.5 g/dL (11.5-16.0); LYMPHOCYTES # (AUTO) 2.1 10^3/uL (1.0-4.0); LYMPHOCYTES % (AUTO) 36 % (12-44); MEAN CORPUSCULAR HEMOGLOBIN 30 pg (25-34); MEAN CORPUSCULAR HGB CONC 33 g/dL (32-36); MEAN CORPUSCULAR VOLUME 90 fL (80-99); MEAN PLATELET VOLUME 10.4 fL (9.0-12.2); MONOCYTES # (AUTO) 0.6 10^3/uL (0.0-1.0); MONOCYTES % (AUTO) 10 % (0-12); NEUTROPHILS # (AUTO) 2.8 10^3/uL (1.8-7.8); NEUTROPHILS % (AUTO) 49 % (42-75); PLATELET COUNT 308 10^3/uL (130-400); WHITE BLOOD COUNT 5.8 10^3/uL (4.3-11.0)
[2020-09-06 15:05] LABS: FREE T4 (FREE THYROXINE) 0.95 NG/DL (0.70-1.48)
== END ==
LOC: LAB 13:29
PROVIDERS: ATTEND Physician Assistant
DX: E05.90 Thyrotoxicosis, unspecified without thyrotoxic crisis or storm (principal); G89.4 Chronic pain syndrome
CPT/HCPCS: 36415; 84439; 84443; 85025

== ENCOUNTER → 2020-09-22 | Outpatient (CLI) | payer MEDICARE, MEDICAID ==
--- NOTE | 2020-09-22 15:37 | Diagnostic Imaging Report ---
MRI RT LOWER EXT JOINT W/O TECHNIQUE: Multiplanar, multisequence MR imaging of the right knee was performed without contrast. COMPARISON: None available. INDICATION: Right knee pain. FINDINGS: MENISCI Medial meniscus: Complex tearing throughout the body and posterior horn of the medial meniscus is likely due to degenerative macerated tearing. The body is partially extruded into the medial gutter. Lateral meniscus: Normal. LIGAMENTS ACL: Intact. PCL: Intact. MCL: Intact. LCL: The lateral collateral ligamentous complex is intact. EXTENSOR MECHANISM The extensor mechanism is intact. CARTILAGE Medial compartment: Full-thickness articular cartilage loss throughout the anterior central weightbearing aspect of the medial tibial plateau has underlying subchondral bone marrow edema. Broad regions of high-grade partial thickness articular cartilage loss throughout the medial femoral condyle. Lateral compartment: Low-grade partial-thickness surface fibrillation of the articular cartilage in the weightbearing aspect of lateral compartment. Patellofemoral compartment: Full-thickness articular cartilage loss throughout the majority of the patella and portions of the trochlea. BONE No fracture, stress fracture or osteonecrosis. SOFT TISSUE No knee effusion or Mendes's cyst. IMPRESSION: 1. Severe tricompartmental osteoarthritis with broad regions of full-thickness articular cartilage loss in the medial and patellofemoral compartments. 2. Associated degenerative macerated tearing in the medial meniscus. Dictated by: Dictated on workstation # [id number]
--- NOTE | 2020-09-22 16:37 | Diagnostic Imaging Report ---
PROCEDURE: MRI lumbar spine. TECHNIQUE: Multiplanar, multisequence MRI of the lumbar spine was performed without contrast. INDICATION: Low back pain, sciatica of 2 years duration. COMPARISON: Limited to abdominal pelvic CT 07/04/2020 that exam included sagittal and coronal reconstructions. No bone contusion or marrow edema is found. There is some chronic superior and inferior endplate neck indentations at the middle thirds of the lumbar spine stable from prior. Anterior and posterior posterior cortical heights are normal. No marrow edema. The disc signal intensity unremarkable. No disc displacement. No focal disc herniation. There is a facet arthrosis and ligamentum flavum thickening at multiple levels. L1-L2: No significant canal, foraminal or recess stenosis. L2-L3: This facet arthrosis and ligamentous thickening but no substantial canal, foraminal or recess stenosis. L3-L4: There is ligamentous thickening and facet arthrosis resulting in mild canal stenosis. There is at least mild degree of bilateral foraminal narrowing somewhat greater right than left. L4-L5: Hypertrophic facet arthrosis and ligament flava thickening result in a mild to moderate canal stenosis with mild right and [id number]-ec-sndqtezd left foraminal narrowing. L5-S1: There is hypertrophic facet arthrosis as well as some ligamentous thickening, disc bulge and endplate osteophytes result in moderate right and mild left foraminal narrowing as well as a mild canal stenosis. IMPRESSION: Multilevel canal and foraminal stenoses largely owing to posterior element hypertrophy with ligamentum flavum thickening and facet arthrosis, normal alignment, no acute bony pathology when differing modalities taken into account. No obvious change from the comparison CT. Dictated on workstation # [id number]
== END ==
LOC: RAD 14:00
PROVIDERS: ATTEND Physician Assistant
DX: M17.11 Unilateral primary osteoarthritis, right knee (principal); M54.40 Lumbago with sciatica, unspecified side
CPT/HCPCS: 72148; 73721

== ENCOUNTER → 2020-11-28 | Outpatient (CLI) | payer OTHER, MEDICAID ==
[~2020-11-28] MED LIST changes: -CLIN300C11 PO; +CLIN300C12 PO
--- NOTE | 2020-11-28 14:31 | Diagnostic Imaging Report ---
INDICATION: Routine screening. No prior mammograms are available for comparison. 2-D and 3-D bilateral screening mammography was performed with CAD. Scattered fibroglandular densities are identified bilaterally. There are scattered benign calcifications in both breasts. There is a nodular density in the medial aspect right breast at mid depth best seen on the CC view tomographic image 28 out of 77. This may be at the nipple line on the right MLO view tomographic image 44. Additional views are recommended. Left breast is unremarkable. Axillae are unremarkable. IMPRESSION: BI-RADS 0 Right breast nodular density. Additional views are recommended for further evaluation. ACR BI-RADS Category 0: Incomplete. (Needs additional imaging evaluation). Result letter will be mailed to the patient. Note: At least 10% of breast cancer is not imaged by mammography. Dictated by: Dictated on workstation # [id number]
== END ==
LOC: RAD 09:45
PROVIDERS: ATTEND Physician Assistant
DX: Z12.31 Encounter for screening mammogram for malignant neoplasm of breast (principal); N63.10 Unspecified lump in the right breast, unspecified quadrant
CPT/HCPCS: 77063; 77067

== ENCOUNTER 2020-12-05 14:48 | Emergency (ER) | payer OTHER, MEDICAID ==
[~2020-12-05] VITALS: Ht 160 cm; Wt 101.6 kg
[2020-12-05] MEDS ORDERED: HYDROmorphone 2 MG/ML VIAL (DILAUDID) IV ONE (15:00)
[2020-12-05 15:06] LABS: BILIRUBIN,URINE NEGATIVE (NEGATIVE); CLARITY,URINE CLEAR; COLOR,URINE YELLOW; GLUCOSE, URINE (UA) NEGATIVE (NEGATIVE); KETONES,URINE NEGATIVE (NEGATIVE); LEUKOCYTE ESTERASE ,URINE NEGATIVE (NEGATIVE); NITRITE,URINE NEGATIVE (NEGATIVE); PROTEIN,URINE NEGATIVE (NEGATIVE)
--- NOTE | 2020-12-05 15:06 | ED Abdominal Pain ---
General Chief Complaint: Abdominal/GI Problems Stated Complaint: ABD PAIN Source of Information: Patient Exam Limitations: No Limitations History of Present Illness Date Seen by Provider: Dec 05, 2020 Time Seen by Provider: 14:50 Initial Comments To ER with reports of abdominal pain. She is concerned she has a bowel obstruction again. She had one a few years ago due to adhesions. She had a 5 or 6-day history of right lower abdominal pain that radiates all the way down the right leg to the foot. This is mostly in the right groin. She has been passing gas and having bowel movements as per her usual. No dysuria. No fevers or chills or vomiting. The remainder of her abdomen sparing the right lower quadrant is nontender to palpation. Timing/Duration: 1-2 Days Severity/Quality: Moderate Location: RLQ Radiation: No Radiation Activities at Onset: None Allergies and Home Medications Allergies Coded Allergies: morphine (Verified Allergy, Unknown, 09/03/19) tramadol (Verified Allergy, Unknown, 09/03/19) Home Medications Amitriptyline HCl 25 Mg Tablet, 25 MG PO HS, (Reported) Amlodipine Besylate 10 Mg Tablet, 10 MG PO DAILY, (Reported) Aspirin 81 Mg Tablet.dr, 81 MG PO DAILY, (Reported) Carboxymethylcellulos/Glycerin 10 Ml Drops, 2 DROPS OU for DRY EYES, (Reported) Duloxetine HCl 30 Mg Capsule.dr, 30 MG PO DAILY, (Reported) Gabapentin 300 Mg Capsule, 300 MG PO Q8H PRN for NERVE PAIN, (Reported) Hydrocodone Bit/Acetaminophen 1 Each Tablet, 1 TAB PO Q6H PRN for PAIN-MODERATE (5-7), (Reported) Isosorbide Mononitrate 30 Mg Tab.er.24h, 30 MG PO DAILY, (Reported) Methimazole 5 Mg Tablet, 5 MG PO DAILY, (Reported) Rivaroxaban 20 Mg Tablet, 20 MG PO DAILY, (Reported) Rosuvastatin Calcium 5 Mg Tablet, 5 MG PO DAILY, (Reported) Patient Home Medication List Home Medication List Reviewed: Yes Review of Systems Review of Systems Constitutional: see HPI EENTM: No Symptoms Reported Respiratory: No Symptoms Reported Cardiovascular: No Symptoms Reported Gastrointestinal: See HPI, Abdominal Pain; Denies Diarrhea, Denies Nausea Genitourinary: No Symptoms Reported Musculoskeletal: see HPI, back pain Skin: no symptoms reported Psychiatric/Neurological: No Symptoms Reported Endocrine: No Symptoms Reported Hematologic/Lymphatic: No Symptoms Reported Past Lslbqrb-Spluda-Uyycxh Hx Patient Social History Type Used: Cigarettes Recent Hopitalizations: No Immunizations Up To Date Tetanus Booster (TDap): Unknown Date of Influenza Vaccine: Aug 10, 2019 Seasonal Allergies Seasonal Allergies: No Past Medical History Surgeries: Yes Abdominal, 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, Tubal Ligation Respiratory: No Cardiac: Yes Atrial Fibrillation, Coronary Artery Disease 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) Neuropathy 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, Menopausal Genitourinary: No Gastrointestinal: Yes (SBO 15 years ago) Musculoskeletal: Yes Rheumatoid Arthritis, Chronic Back Pain Endocrine: No Hypothyroidsim HEENT: No Loss of Vision: Denies Hearing Impairment: Denies Cancer: No Psychosocial: No Integumentary: Yes (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 oz. kg; 35.70 BMI Method: General Appearance: WD/WN, moderate distress (Tearful, and distress related to pain. Strong dorsalis pedis pulse bilaterally.) HEENT: PERRL/EOMI, normal ENT inspection Neck: non-tender, full range of motion Respiratory: no respiratory distress, no accessory muscle use Cardiovascular: regular rate, rhythm, no murmur Gastrointestinal: normal bowel sounds, soft, tenderness (Right groin tenderness to palpation) Extremities: normal range of motion, non-tender Neurologic/Psychiatric: alert, normal mood/affect, oriented x 3 Skin: normal color, warm/dry Progress/Results/Core Measures Results/Orders Lab Results Laboratory Tests Test 12/05/20 14:55 12/05/20 15:09 Range/Units Urine Color YELLOW Urine Clarity CLEAR Urine pH 7.0 5-9 Urine Specific Hankinson 1.015 L 1.016-1.022 Urine Protein NEGATIVE NEGATIVE Urine Glucose (UA) NEGATIVE NEGATIVE Urine Ketones NEGATIVE NEGATIVE Urine Nitrite NEGATIVE NEGATIVE Urine Bilirubin NEGATIVE NEGATIVE Urine Urobilinogen 1.0 < = 1.0 MG/DL Urine Leukocyte Esterase NEGATIVE NEGATIVE Urine RBC (Auto) NEGATIVE NEGATIVE Urine RBC NONE /HPF Urine WBC 0-2 /HPF Urine Squamous Epithelial Cells 2-5 /HPF Urine Crystals NONE /LPF Urine Bacteria TRACE /HPF Urine Casts NONE /LPF Urine Mucus NEGATIVE /LPF Urine Culture Indicated NO White Blood Count 6.4 4.3-11.0 10^3/uL Red Blood Count 4.08 3.80-5.11 10^6/uL Hemoglobin 12.0 11.5-16.0 g/dL Hematocrit 37 35-52 % Mean Corpuscular Volume 91 80-99 fL Mean Corpuscular Hemoglobin 29 25-34 pg Mean Corpuscular Hemoglobin Concent 32 32-36 g/dL Red Cell Distribution Width 15.1 H 10.0-14.5 % Platelet Count 283 130-400 10^3/uL Mean Platelet Volume 10.6 9.0-12.2 fL Immature Granulocyte % (Auto) 0 % Neutrophils (%) (Auto) 46 42-75 % Lymphocytes (%) (Auto) 41 12-44 % Monocytes (%) (Auto) 7 0-12 % Eosinophils (%) (Auto) 5 0-10 % Basophils (%) (Auto) 1 0-10 % Neutrophils # (Auto) 3.0 1.8-7.8 10^3/uL Lymphocytes # (Auto) 2.6 1.0-4.0 10^3/uL Monocytes # (Auto) 0.5 0.0-1.0 10^3/uL Eosinophils # (Auto) 0.3 0.0-0.3 10^3/uL Basophils # (Auto) 0.1 0.0-0.1 10^3/uL Immature Granulocyte # (Auto) 0.0 0.0-0.1 10^3/uL Sodium Level 140 135-145 MMOL/L Potassium Level 3.6 3.6-5.0 MMOL/L Chloride Level 108 H 98-107 MMOL/L Carbon Dioxide Level 27 21-32 MMOL/L Anion Gap 5 5-14 MMOL/L Blood Urea Nitrogen 9 7-18 MG/DL Creatinine 0.82 0.60-1.30 MG/DL Estimat Glomerular Filtration Rate > 60 BUN/Creatinine Ratio 11 Glucose Level 128 H 70-105 MG/DL Calcium Level 8.9 8.5-10.1 MG/DL Corrected Calcium 9.1 8.5-10.1 MG/DL Total Bilirubin 0.8 0.1-1.0 MG/DL Aspartate Amino Transf (AST/SGOT) 11 5-34 U/L Alanine Aminotransferase (ALT/SGPT) 7 0-55 U/L Alkaline Phosphatase 111 40-136 U/L Total Protein 6.5 6.4-8.2 GM/DL Albumin 3.8 3.2-4.5 GM/DL My Orders Orders - MEAGAN JUAREZ APRN Cbc With Automated Diff (12/05/20 14:58) Comprehensive Metabolic Panel (12/05/20 14:58) Ua Culture If Indicated (12/05/20 14:58) Ed Iv/Invasive Line Start (12/05/20 14:58) Hydromorphone Injection (Dilaudid Inject (12/05/20 15:00) Ct Abdomen/Pelvis W (12/05/20 15:11) Femur, Right, 2 Views (12/05/20 15:11) Iohexol Injection (Omnipaque 350 Mg/Ml 1 (12/05/20 15:45) Received Contrast (Hold Metformin- Contr (12/05/20 15:45) Ns (Ivpb) (Sodium Chloride 0.9% Ivpb Bag (12/05/20 15:45) Medications Given in ED Current Medications Medications Dose Ordered Sig/Willian Route Start Time Stop Time Status Last Admin Dose Admin Hydromorphone HCl 1 mg ONCE ONCE IV 12/05/20 15:00 12/05/20 15:01 DC 12/05/20 15:13 1 MG Iohexol 100 ml ONCE ONCE IV 12/05/20 15:45 12/05/20 15:46 DC 12/05/20 15:49 100 ML Sodium Chloride 100 ml ONCE ONCE IV 12/05/20 15:45 12/05/20 15:46 DC 12/05/20 15:49 80 ML Vital Signs/I&O 12/05/20 14:50 Temp 36.9 Pulse 73 Resp 20 B/P (MAP) 187/88 (121) Pulse Ox 96 O2 Delivery Room Air Diagnostic Imaging Diagonstic Imaging: CT Comments NAME: RULA SQUIRESTONY Acevedo [facility] REC#: [id number] PT STATUS: REG ER : 04/17/1955 PHYSICIAN: MEAGAN JUAREZ APRN ADMIT DATE: 12/05/20/ER Draft Date of Exam:12/05/20 CT ABDOMEN/PELVIS W EXAMINATION: CT Abdomen and Pelvis with intravenous contrast. TECHNIQUE: Multiple contiguous axial images were obtained through the abdomen and pelvis after the uneventful administration of intravenous contrast. All CT scans use one or more of the following dose optimizing techniques: automated exposure control, MA and/or KvP adjustment based on a patient size and exam type, or iterative reconstruction. HISTORY: Right lower quadrant pain. COMPARISON: CT abdomen and pelvis 07/04/2020. FINDINGS: Lung bases: Bibasilar dependent atelectasis. Solid organs: The liver is normal without focal lesion. The gallbladder is not visualized and may be surgically absent. There is no biliary ductal dilation. Pancreas is normal. Spleen is normal. Adrenal glands are normal. The kidneys are normal without hydronephrosis. Bowel: Surgical changes of the small bowel without obstruction. Scattered colonic diverticulosis. No findings of acute appendicitis. Peritoneum: There is no intraperitoneal free fluid or free air. No suspicious lymphadenopathy. Vasculature: Calcification of the aorta without aneurysm. Musculoskeletal: Degenerative changes of the spine without suspicious osseous lesion or compression fracture. Surgical changes of the midline anterior abdominal wall. Pelvis: The uterus is surgically absent. No adnexal mass. The urinary bladder is normal. IMPRESSION: 1. No acute abnormality in the abdomen or pelvis. 2. Colonic diverticulosis without findings of diverticulitis. Dictated on workstation # [id number] Dict: 12/05/20 1557 Trans: 12/05/20 1603 [facility] [id number] Interpreted by: JONNY MURRY DO Electronically signed by: Departure Impression Primary Impression: Sciatic leg pain Disposition: HOME, SELF-CARE Condition: Stable Departure-Patient Inst. Decision time for Depature: 16:15 Referrals: [facility] (PCP) Primary Care Physician JOHN SPENCER (Family) Primary Care Physician Patient Instructions: Sciatica (DC), Sciatica Exercises Add. Discharge Instructions: 1. Continue your hydrocodone. Add the steroids. Return to ER for any worsening. Follow-up with your doctor next week. All discharge instructions reviewed with patient and/or family. Voiced understanding. MEAGAN JUAREZ APRN Dec 05, 2020 15:06
[2020-12-05 15:18] LABS: BACTERIA,URINE TRACE /HPF; WBC,URINE 0-2 /HPF
[2020-12-05 15:19] LABS: BASOPHILS # (AUTO) 0.1 10^3/uL (0.0-0.1); BASOPHILS % (AUTO) 1 % (0-10); EOSINOPHILS # (AUTO) 0.3 10^3/uL (0.0-0.3); EOSINOPHILS % (AUTO) 5 % (0-10); HEMATOCRIT 37 % (35-52); LYMPHOCYTES # (AUTO) 2.6 10^3/uL (1.0-4.0); LYMPHOCYTES % (AUTO) 41 % (12-44); MEAN CORPUSCULAR HEMOGLOBIN 29 pg (25-34); MEAN CORPUSCULAR HGB CONC 32 g/dL (32-36); MEAN CORPUSCULAR VOLUME 91 fL (80-99); MEAN PLATELET VOLUME 10.6 fL (9.0-12.2); MONOCYTES # (AUTO) 0.5 10^3/uL (0.0-1.0); MONOCYTES % (AUTO) 7 % (0-12); NEUTROPHILS % (AUTO) 46 % (42-75); PLATELET COUNT 283 10^3/uL (130-400); WHITE BLOOD COUNT 6.4 10^3/uL (4.3-11.0)
[2020-12-05 15:26] LABS: ALBUMIN 3.8 GM/DL (3.2-4.5)
[2020-12-05 15:27] LABS: CHLORIDE 108 MMOL/L (98-107); POTASSIUM 3.6 MMOL/L (3.6-5.0); SODIUM 140 MMOL/L (135-145)
[2020-12-05 15:28] LABS: CALCIUM 8.9 MG/DL (8.5-10.1)
[2020-12-05 15:29] LABS: GLUCOSE 128 MG/DL (70-105); TOTAL PROTEIN 6.5 GM/DL (6.4-8.2)
[2020-12-05 15:30] LABS: CARBON DIOXIDE 27 MMOL/L (21-32)
[2020-12-05 15:31] LABS: BILIRUBIN,TOTAL 0.8 MG/DL (0.1-1.0)
[2020-12-05 15:32] LABS: ALKALINE PHOSPHATASE 111 U/L (40-136)
[2020-12-05 15:33] LABS: CREATININE SERUM 0.82 MG/DL (0.60-1.30); GFR ESTIMATED > 60
[2020-12-05 15:34] LABS: BUN/CREATININE RATIO 11
[2020-12-05 15:36] LABS: ALANINE AMINOTRANSFERASE 7 U/L (0-55)
[2020-12-05] MEDS ORDERED: IOHEXOL 350 MG/ML 100 ML (OMNIPAQUE 350) VIAL IV ONE (15:45)
[2020-12-05] MEDS ORDERED: HOLD METFORMIN - RECEIVED CONTRAST 20 ML VIAL IV SCH (15:45)
[2020-12-05] MEDS ORDERED: NS 100 ML (IVPB) BAG IV ONE (15:45)
--- NOTE | 2020-12-05 15:49 | Diagnostic Imaging Report ---
INDICATION: Right leg pain. TIME OF EXAM: 3:33 PM. TECHNIQUE: AP and lateral views of the right femur were obtained. FINDINGS: The alignment at the hip and knee appears normal. The femur appears intact. No fracture is identified. The soft tissues are unremarkable. IMPRESSION: No acute bony abnormality is detected. Dictated by: Dictated on workstation # [id number]
--- NOTE | 2020-12-05 16:04 | Diagnostic Imaging Report ---
EXAMINATION: CT Abdomen and Pelvis with intravenous contrast. TECHNIQUE: Multiple contiguous axial images were obtained through the abdomen and pelvis after the uneventful administration of intravenous contrast. All CT scans use one or more of the following dose optimizing techniques: automated exposure control, MA and/or KvP adjustment based on a patient size and exam type, or iterative reconstruction. HISTORY: Right lower quadrant pain. COMPARISON: CT abdomen and pelvis 07/04/2020. FINDINGS: Lung bases: Bibasilar dependent atelectasis. Solid organs: The liver is normal without focal lesion. The gallbladder is not visualized and may be surgically absent. There is no biliary ductal dilation. Pancreas is normal. Spleen is normal. Adrenal glands are normal. The kidneys are normal without hydronephrosis. Bowel: Surgical changes of the small bowel without obstruction. Scattered colonic diverticulosis. No findings of acute appendicitis. Peritoneum: There is no intraperitoneal free fluid or free air. No suspicious lymphadenopathy. Vasculature: Calcification of the aorta without aneurysm. Musculoskeletal: Degenerative changes of the spine without suspicious osseous lesion or compression fracture. Surgical changes of the midline anterior abdominal wall. Pelvis: The uterus is surgically absent. No adnexal mass. The urinary bladder is normal. IMPRESSION: 1. No acute abnormality in the abdomen or pelvis. 2. Colonic diverticulosis without findings of diverticulitis. Dictated by: Dictated on workstation # [id number]
[2020-12-05] MEDS ORDERED: PRD20T PO (16:17)
[2020-12-05 16:34] VITALS: BP 162/86
== END 2020-12-05 16:34 | disposition home or self-care (01) ==
LOC: EDUNIT# 14:48 → ER 14:50
DX: M79.671 Pain in right foot (principal); I48.91 Unspecified atrial fibrillation; G89.29 Other chronic pain; M54.9 Dorsalgia, unspecified; I25.10 Atherosclerotic heart disease of native coronary artery without angina pectoris; Z88.5 Allergy status to narcotic agent; Z82.49 Family history of ischemic heart disease and other diseases of the circulatory system; Z83.3 Family history of diabetes mellitus; Z79.01 Long term (current) use of anticoagulants; Z79.891 Long term (current) use of opiate analgesic
CPT/HCPCS: 36415; 73552; 74177; 80053; 81000; 85025

== ENCOUNTER 2020-12-13 10:40 | Observation (INO) | payer MEDICARE, MEDICAID ==
[~2020-12-13] VITALS: Ht 165.1 cm; Wt 113.6 kg
[~2020-12-13 10:40] MED LIST changes: +PRD20T PO
--- NOTE | 2020-12-13 10:56 | ED General ---
General Chief Complaint: General Problems/Pain Stated Complaint: ABD PAIN Nursing Triage Note: TO ED PER EMS FROM HOME. PATIENT REPORTS SEEN 4 DAYS AGO FOR PAIN. TODAY C/O PAIN IN VAG AREA WITH BURNING WITH URINATING HAVING PAIN WHEN TURNING OVER. Nursing Sepsis Screen: No Definite Risk Source of Information: Patient Exam Limitations: No Limitations History of Present Illness Date Seen by Provider: Dec 13, 2020 Time Seen by Provider: 10:50 Initial Comments Patient is a 65-year-old female who presents to the emergency department today w ith chief complaint of right leg pain, vaginal pain difficulty urinating this morning. Patient has been seen in recent weeks for low back pain. Patient had an MRI of the lumbar spine which showed foraminal stenosis at the levels of L3- S1 as well as canal stenosis. Patient is being referred to Ortho for states for further evaluation and management. Patient states that she has been taking hydrocodone at home for pain but it is not helping. When she woke up this morning she had great difficulty in elevating her right leg and rolling over onto her left side. Patient denies any numbness tingling or weakness to her right lower extremity. She states it feels numb in her groin. She has not lost control of her bowel or bladder. Patient states that she can void on her own. She is just complaining of primarily exquisite pain in the suprapubic, vaginal region. No recent illnesses such as fevers, chills, cough, congestion. No complaints of diarrhea or vomiting. All other review of systems reviewed and negative except as stated. Timing/Duration: 1 Hour Severity: Severe Modifying Factors: improves with Immobilization; worse with Movement Associated Systoms: Denies Symptoms Allergies and Home Medications Allergies Coded Allergies: morphine (Verified Allergy, Unknown, 09/03/19) tramadol (Verified Allergy, Unknown, 09/03/19) Home Medications Amitriptyline HCl 25 Mg Tablet, 25 MG PO HS, (Reported) Amlodipine Besylate 10 Mg Tablet, 10 MG PO DAILY, (Reported) Aspirin 81 Mg Tablet.dr, 81 MG PO DAILY, (Reported) Carboxymethylcellulos/Glycerin 10 Ml Drops, 2 DROPS OU for DRY EYES, (Reported) Duloxetine HCl 30 Mg Capsule.dr, 30 MG PO DAILY, (Reported) Gabapentin 300 Mg Capsule, 300 MG PO Q8H PRN for NERVE PAIN, (Reported) Hydrocodone Bit/Acetaminophen 1 Each Tablet, 1 TAB PO Q6H PRN for PAIN-MODERATE (5-7), (Reported) Isosorbide Mononitrate 30 Mg Tab.er.24h, 30 MG PO DAILY, (Reported) Methimazole 5 Mg Tablet, 5 MG PO DAILY, (Reported) Prednisone 20 Mg Tab, 40 MG PO DAILY Prescribed by: MEAGAN JUAREZ on 12/05/20 1617 Rivaroxaban 20 Mg Tablet, 20 MG PO DAILY, (Reported) Rosuvastatin Calcium 5 Mg Tablet, 5 MG PO DAILY, (Reported) Patient Home Medication List Home Medication List Reviewed: Yes Review of Systems Review of Systems Constitutional: see HPI EENTM: no symptoms reported Respiratory: no symptoms reported Cardiovascular: no symptoms reported Gastrointestinal: other (Suprapubic abdominal pain) : No Musculoskeletal: back pain (Chronic low back pain), other (Pain down the right leg to the ankle) Skin: no symptoms reported Psychiatric/Neurological: No Symptoms Reported All Other Systems Reviewed Negative Unless Noted: Yes Past Yrodyvh-Fpboxd-Avmomw Hx Patient Social History Alcohol Use: Denies Use Smoking Status: Current Everyday Smoker Type Used: Cigarettes Recent Infectious Disease Expo: No Recent Hopitalizations: No Immunizations Up To Date Tetanus Booster (TDap): Unknown Date of Influenza Vaccine: Aug 10, 2019 Seasonal Allergies Seasonal Allergies: No Past Medical History Surgeries: Yes Abdominal, 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, Tubal Ligation Respiratory: No Cardiac: Yes Atrial Fibrillation, Coronary Artery Disease 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) 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 History: Tubal Ligation, Menopausal Genitourinary: No Gastrointestinal: Yes (SBO 15 years ago) Chronic Diarrhea Musculoskeletal: Yes Rheumatoid Arthritis, Chronic Back Pain Endocrine: No Hypothyroidsim HEENT: No Loss of Vision: Denies Hearing Impairment: Denies Cancer: No Psychosocial: No Integumentary: Yes (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 oz. kg; 41.00 BMI Method: General Appearance: WD/WN, Anxious, Moderate Distress Eyes: Bilateral Eye Normal Inspection, Bilateral Eye PERRL, Bilateral Eye EOMI HEENT: PERRL/EOMI Neck: Normal Inspection Respiratory: Lungs Clear, Normal Breath Sounds, No Accessory Muscle Use, No Respiratory Distress Cardiovascular: Regular Rate, Rhythm Gastrointestinal: Tenderness (Suprapubic tenderness) Extremity: Normal Capillary Refill, Normal Inspection Neurologic/Psychiatric: Alert, Oriented x3, No Motor/Sensory Deficits, Normal Mood/Affect Skin: Normal Color, Warm/Dry Progress/Results/Core Measures Suspected Sepsis Recent Fever Within 48 Hours: No Infection Criteria Present: None New/Unexplained Altered Menta: No Sepsis Screen: No Definite Risk SIRS Temperature: Pulse: 63 Respiratory Rate: 18 Laboratory Tests 12/13/20 11:36: White Blood Count 5.9 Blood Pressure 157 /111 Mean: 126 Laboratory Tests 12/13/20 11:36: Creatinine 0.82, Platelet Count 287 Results/Orders Lab Results Laboratory Tests Test 12/13/20 11:36 12/13/20 11:48 Range/Units White Blood Count 5.9 4.3-11.0 10^3/uL Red Blood Count 4.22 3.80-5.11 10^6/uL Hemoglobin 12.4 11.5-16.0 g/dL Hematocrit 39 35-52 % Mean Corpuscular Volume 92 80-99 fL Mean Corpuscular Hemoglobin 29 25-34 pg Mean Corpuscular Hemoglobin Concent 32 32-36 g/dL Red Cell Distribution Width 15.1 H 10.0-14.5 % Platelet Count 287 130-400 10^3/uL Mean Platelet Volume 10.8 9.0-12.2 fL Immature Granulocyte % (Auto) 0 % Neutrophils (%) (Auto) 40 L 42-75 % Lymphocytes (%) (Auto) 46 H 12-44 % Monocytes (%) (Auto) 9 0-12 % Eosinophils (%) (Auto) 4 0-10 % Basophils (%) (Auto) 1 0-10 % Neutrophils # (Auto) 2.4 1.8-7.8 10^3/uL Lymphocytes # (Auto) 2.7 1.0-4.0 10^3/uL Monocytes # (Auto) 0.5 0.0-1.0 10^3/uL Eosinophils # (Auto) 0.3 0.0-0.3 10^3/uL Basophils # (Auto) 0.1 0.0-0.1 10^3/uL Immature Granulocyte # (Auto) 0.0 0.0-0.1 10^3/uL Sodium Level 140 135-145 MMOL/L Potassium Level 3.7 3.6-5.0 MMOL/L Chloride Level 106 98-107 MMOL/L Carbon Dioxide Level 25 21-32 MMOL/L Anion Gap 9 5-14 MMOL/L Blood Urea Nitrogen 13 7-18 MG/DL Creatinine 0.82 0.60-1.30 MG/DL Estimat Glomerular Filtration Rate > 60 BUN/Creatinine Ratio 16 Glucose Level 98 70-105 MG/DL Calcium Level 9.0 8.5-10.1 MG/DL Urine Color YELLOW Urine Clarity CLEAR Urine pH 6.0 5-9 Urine Specific [place] 1.025 H 1.016-1.022 Urine Protein NEGATIVE NEGATIVE Urine Glucose (UA) NEGATIVE NEGATIVE Urine Ketones NEGATIVE NEGATIVE Urine Nitrite NEGATIVE NEGATIVE Urine Bilirubin NEGATIVE NEGATIVE Urine Urobilinogen 0.2 < = 1.0 MG/DL Urine Leukocyte Esterase NEGATIVE NEGATIVE Urine RBC (Auto) NEGATIVE NEGATIVE Urine RBC NONE /HPF Urine WBC 0-2 /HPF Urine Squamous Epithelial Cells 10-25 H /HPF Urine Crystals PRESENT H /LPF Urine Amorphous Sediment MOD JACQUIE URATES H /LPF Urine Bacteria TRACE /HPF Urine Casts NONE /LPF Urine Mucus SMALL H /LPF Urine Culture Indicated NO My Orders Orders - CHARISSE LEHMAN MD Ed Iv/Invasive Line Start (12/13/20 11:00) Cbc With Automated Diff (12/13/20 11:00) Basic Metabolic Panel (12/13/20 11:00) Ua Culture If Indicated (12/13/20 11:00) Ketorolac Injection (Toradol Injection) (12/13/20 12:00) Orphenadrine Inj (Ed Only) (Norflex Inje (12/13/20 12:00) Fentanyl Injection (Sublimaze Injection (12/13/20 12:00) Hydromorphone Injection (Dilaudid Inject (12/13/20 13:15) Ct Lumbar Spine Wo (12/13/20 13:03) Medications Given in ED Current Medications Medications Dose Ordered Sig/Willian Route Start Time Stop Time Status Last Admin Dose Admin Fentanyl Citrate 50 mcg ONCE ONCE IVP 12/13/20 12:00 12/13/20 12:01 DC 12/13/20 11:57 50 MCG Hydromorphone HCl 0.5 mg ONCE ONCE IV 12/13/20 13:15 12/13/20 13:16 DC 12/13/20 13:14 0.5 MG Ketorolac Tromethamine 15 mg ONCE ONCE IVP 12/13/20 12:00 12/13/20 12:01 DC 12/13/20 12:00 15 MG Orphenadrine Citrate 60 mg ONCE ONCE IM 12/13/20 12:00 12/13/20 12:01 DC 12/13/20 12:02 60 MG Vital Signs/I&O 12/13/20 10:40 Temp 36.2 Pulse 63 Resp 18 B/P (MAP) 157/111 (126) Pulse Ox 98 Capillary Refill : Less Than 3 Seconds Blood Pressure Mean: 126 Progress Note : Time: 13:42 Progress Note Reevaluated patient after her second round of pain medicines, Dilaudid half milligram. Patient states that she is feeling better at this point. Patient has no evidence of acute urinary retention nor does she have incontinence. She is able to hold her bladder on her own. She does complain of right hip and vaginal pain as the pain seems to be radiating from her back into this area and down her leg to her ankle. She has no weakness in her lower extremities. She has intact reflexes both ankle jerks and patellar. Am awaiting a CAT scan to further delineate her anatomy and make sure that she does not have an acute worsening of her spinal stenosis/canal stenosis or foraminal stenosis. Patient tells me that she has a follow-up appointment with Dr. Headley at [facility] on January 17. She states she has completed a course of prednisone. She does not have any muscle relaxers at home this is something to consider upon discharge if the patient has criteria for discharge. 1535 Patient has multilevel spinal canal and foraminal canal stenosis on her CT lumbar spine. Some of this is moderate to severe. Patient continues to have intractable low back pain worse on the right with radiation down into the right hip knee and ankle. Discussed with [facility] and I was able to get her appointment scheduled for tomorrow at [address] Kayode Walker's PA. Also discussed with social media project manager and they were able to arrange transportation so that the patient can actually get to this appointment. The patient has quite a few social difficulties as her son is legally blind and deaf and she has a hard time communicating with him. Discussed with Dr. Grier. She graciously accepts the patient for observation admission for pain management and a little physical therapy. Diagnostic Imaging Diagonstic Imaging: CT Plain Films/CT/US/NM/MRI: other (Lumbar spine) Comments [facility], [place] NAME: YUMI SQUIRES [facility] REC#: [id number] PT STATUS: REG ER : 04/17/1955 PHYSICIAN: CHARISSE LEHMAN MD ADMIT DATE: 12/13/20/ER Draft Date of Exam:12/13/20 CT LUMBAR SPINE WO PROCEDURE: CT lumbar spine without contrast. TECHNIQUE: Multiple contiguous axial images were obtained through the lumbar spine without the use of intravenous contrast. Sagittal and coronal reformations were then performed. Auto Exposure Controls were utilized during the CT exam to meet ALARA standards for radiation dose reduction. INDICATION: Severe back pain of 3 weeks duration. COMPARISON: Correlation is made with an abdominal/pelvic CT of 07/04/2020. FINDINGS: Some chronic old mild middle 3rd endplate concavities at L1, L2, L3, L4, and L5 are unchanged. No acute endplate irregularity. The pedicles and pars are intact. There is degenerative hypertrophy of the facets throughout the lumbar spine but more progressive as we move inferiorly. There is multilevel disc bulge and endplate osteophytes with thickening of the ligamenta flava. No paravertebral mass, hemorrhage, or fluid collection. L1-L2: There is mild canal and mild right foraminal stenosis. L2-L3: Ligamentous thickening, facet arthrosis, disc bulge, and endplate osteophytes result in mild to moderate canal stenosis with mild to moderate right and mild left foraminal narrowing. L3-L4: Ligamentous thickening, disc bulge, and facet arthrosis result in a moderate to severe magnitude of central canal stenosis with moderate bi-foraminal narrowing. L4-L5: Ligamenta flava thickening, disc bulge, and endplate osteophytes severely stenose the thecal sac. There is moderate to severe bi-foraminal stenoses. L5-S1: Disc bulge and endplate osteophytes result in moderate right and moderate to severe left neuroforaminal stenosis with mild to moderate canal narrowing. IMPRESSION: Substantial degrees of multilevel spinal stenosis on a multifactorial chronic basis of varying severities are listed level by level above. Normal alignment. No acute bony abnormality. No fluid collection. Dictated on workstation # [id number] Dict: 12/13/20 1406 Trans: 12/13/20 1426 [id number] Interpreted by: SHEELA LAUREANO Electronically signed by: Departure Communication (Admissions) Time/Spoke to Admitting Phy: 15:[address] Grier, accepts patient for observation admission at this time Impression Primary Impression: Lumbar back pain with radiculopathy affecting right lower extremity Additional Impression: Intractable low back pain Disposition: ADMITTED INPATIENT Condition: Stable Admissions Decision to Admit Reason: Admit from ER (General) Decision to Admit/Date: Dec 13, 2020 Time/Decision to Admit Time: 15:33 Departure-Patient Inst. Referrals: [facility]/JOE (PCP) Primary Care Physician JOHN SPENCER (Family) Primary Care Physician CHARISSE LEHMAN MD Dec 13, 2020 10:56
[2020-12-13 11:43] LABS: BASOPHILS # (AUTO) 0.1 10^3/uL (0.0-0.1); BASOPHILS % (AUTO) 1 % (0-10); EOSINOPHILS # (AUTO) 0.3 10^3/uL (0.0-0.3); EOSINOPHILS % (AUTO) 4 % (0-10); HEMATOCRIT 39 % (35-52); HEMOGLOBIN 12.4 g/dL (11.5-16.0); LYMPHOCYTES # (AUTO) 2.7 10^3/uL (1.0-4.0); LYMPHOCYTES % (AUTO) 46 % (12-44); MEAN CORPUSCULAR HEMOGLOBIN 29 pg (25-34); MEAN CORPUSCULAR HGB CONC 32 g/dL (32-36); MEAN CORPUSCULAR VOLUME 92 fL (80-99); MEAN PLATELET VOLUME 10.8 fL (9.0-12.2); MONOCYTES # (AUTO) 0.5 10^3/uL (0.0-1.0); MONOCYTES % (AUTO) 9 % (0-12); NEUTROPHILS # (AUTO) 2.4 10^3/uL (1.8-7.8); NEUTROPHILS % (AUTO) 40 % (42-75); PLATELET COUNT 287 10^3/uL (130-400); WHITE BLOOD COUNT 5.9 10^3/uL (4.3-11.0)
[2020-12-13 11:53] LABS: CHLORIDE 106 MMOL/L (98-107); POTASSIUM 3.7 MMOL/L (3.6-5.0); SODIUM 140 MMOL/L (135-145)
[2020-12-13 11:55] LABS: BILIRUBIN,URINE NEGATIVE (NEGATIVE); CLARITY,URINE CLEAR; COLOR,URINE YELLOW; GLUCOSE, URINE (UA) NEGATIVE (NEGATIVE); KETONES,URINE NEGATIVE (NEGATIVE); LEUKOCYTE ESTERASE ,URINE NEGATIVE (NEGATIVE); NITRITE,URINE NEGATIVE (NEGATIVE); PROTEIN,URINE NEGATIVE (NEGATIVE)
[2020-12-13 11:55] LABS: GLUCOSE 98 MG/DL (70-105)
[2020-12-13 11:56] LABS: CARBON DIOXIDE 25 MMOL/L (21-32)
[2020-12-13 11:59] LABS: CREATININE SERUM 0.82 MG/DL (0.60-1.30); GFR ESTIMATED > 60
[2020-12-13 12:00] LABS: BUN/CREATININE RATIO 16
[2020-12-13] MEDS ORDERED: fentaNYL INJECTION 100 MCG/2 ML AMP IVP ONE (12:00)
[2020-12-13] MEDS ORDERED: KETOROLAC 30 MG/ML VIAL IVP ONE (12:00)
[2020-12-13] MEDS ORDERED: ORPHENADRINE 60 MG/2 ML (NORFLEX) AMP (ED ONLY) IM ONE (12:00)
[2020-12-13 12:14] LABS: AMORPHOUS SEDIMENT,UR MOD AMOR URATES /LPF; BACTERIA,URINE TRACE /HPF; WBC,URINE 0-2 /HPF
[2020-12-13] MEDS ORDERED: HYDROmorphone 2 MG/ML VIAL (DILAUDID) IV ONE (13:15)
--- NOTE | 2020-12-13 13:23 | NUR ---
WHEN IN ROOM GIVING PAIN MEDS ASKED WHAT SHE WAS GETTING WHEN WAS TOLD JUDAHID SHE SAID GOOD THAT IS WHAT THEY USUALLY GIVE.
--- NOTE | 2020-12-13 13:50 | NUR ---
SISTER CALLED PATIENT GAVE OK TO TALK WITH HER
--- NOTE | 2020-12-13 14:01 | NUR ---
ADAH TO ROOM TO TALK WITH BENNIE.
--- NOTE | 2020-12-13 14:26 | Diagnostic Imaging Report ---
PROCEDURE: CT lumbar spine without contrast. TECHNIQUE: Multiple contiguous axial images were obtained through the lumbar spine without the use of intravenous contrast. Sagittal and coronal reformations were then performed. Auto Exposure Controls were utilized during the CT exam to meet ALARA standards for radiation dose reduction. INDICATION: Severe back pain of 3 weeks duration. COMPARISON: Correlation is made with an abdominal/pelvic CT of 07/04/2020. FINDINGS: Some chronic old mild middle 3rd endplate concavities at L1, L2, L3, L4, and L5 are unchanged. No acute endplate irregularity. The pedicles and pars are intact. There is degenerative hypertrophy of the facets throughout the lumbar spine but more progressive as we move inferiorly. There is multilevel disc bulge and endplate osteophytes with thickening of the ligamenta flava. No paravertebral mass, hemorrhage, or fluid collection. L1-L2: There is mild canal and mild right foraminal stenosis. L2-L3: Ligamentous thickening, facet arthrosis, disc bulge, and endplate osteophytes result in mild to moderate canal stenosis with mild to moderate right and mild left foraminal narrowing. L3-L4: Ligamentous thickening, disc bulge, and facet arthrosis result in a moderate to severe magnitude of central canal stenosis with moderate bi-foraminal narrowing. L4-L5: Ligamenta flava thickening, disc bulge, and endplate osteophytes severely stenose the thecal sac. There is moderate to severe bi-foraminal stenoses. L5-S1: Disc bulge and endplate osteophytes result in moderate right and moderate to severe left neuroforaminal stenosis with mild to moderate canal narrowing. IMPRESSION: Substantial degrees of multilevel spinal stenosis on a multifactorial chronic basis of varying severities are listed level by level above. Normal alignment. No acute bony abnormality. No fluid collection. Dictated by: Dictated on workstation # [id number]
--- NOTE | 2020-12-13 15:17 | NUR ---
ELECTRONICS PROCESSOR HERE TO TALK WITH PATIENT
--- NOTE | 2020-12-13 15:22 | NUR ---
Ref by RN: Pt shared she has history of heart attack and stroke. She was for over 30 years when she her , whom she said was an alcoholic. Pt shared story of how her son and caregiver became deaf when he was 9 months old after a severe ear infection. He later suffered sight loss after being physically attacked in a robbery. The pt has been trying to get legal help for gaining custody of her grandson who is 15 years old. Pt shared logan in God, and said she prays often but sometimes wonder if she is being punished because she left her . Commercial Loan Assistant explored themes of chantell, logan and inner strength while offering active listening. During Dr. Otto' update, Commercial Loan Assistant facilitated pt sharing her needs for transportation and care at home. Pt was in bed with severe pain before coming to the ER, and her son was unable to hear her call for help. Pt demonstrates anxiety about returning home when she is still in pain. Commercial Loan Assistant communicated this to the and recommended follow up by [employer] Researcher to explore options for transportation and possible home care.
--- NOTE | 2020-12-13 15:42 | NUR ---
CM/SS: Visited with pt as per Trip Motor Operator Consult related to transportation to an appointment at [facility] on tomorrow 12/14/20. Plan: Pt to be admitted for pain control and be able to go to appointment at [facility] on tomorrow via [employer] phone [phone] - / Yellow [employer] - Ride # [id number]. Summary: Talked with Dr. Otto, Emergency Room Physician as to her getting the pt's appt for [facility] moved up from January to tomorrow, and transportation would need to be arranged. This worker makes arrangements and sets up the transportation for the pt. [employer] makes allowances for less 24 hours due to pt having been in ER several times. This worker visits with pt int he ED - pt reports she is having alot of pain in her back and has an appt at [facility] on tomorrow. This worker is able to get the transportation arranged for tomorrow. Ride #[id number]. Pt will plan to leave from here to go to her appointment. Pt is pleased and will notify her son so that he can bring her purse and other belongings to the hospital for pt. Pt thanks this worker for her help with the transportation. This worker will plan to see pt on tomorrow prior to her discharge.
--- NOTE | 2020-12-13 16:01 | NUR ---
CM/SS: [employer] /[employer] #[id number] - WILL LEGAL DIRECTOR PT AT 12NOON AT THE OUTPATIENT ENTRANCE FOR HER APPT AT [facility]. [employer] PHONE [phone].
[2020-12-13] MEDS ORDERED: RIVAROXABAN 20 MG TABLET (XARELTO) PO SCH (17:00)
[2020-12-13] MEDS: HYDROmorphone 2 MG/ML VIAL (DILAUDID) IVP PRN ×2 (17:11→22:46)
[2020-12-13] MEDS ORDERED: DULO60CA59 PO (17:27)
[2020-12-13] MEDS ORDERED: PANT20TA18 PO (17:27)
[2020-12-13] MEDS ORDERED: DICL100G27 TP (17:27)
[2020-12-13] MEDS ORDERED: GABAPENTIN 300 MG (NEURONTIN) CAP PO PRN (17:30)
--- NOTE | 2020-12-13 17:35 | NUR ---
YUMI SQUIRES admitted to room 405-1, with an admitting diagnosis of lower back pain , on 12/13/20 from ED via stretcher, accompanied by staff .YUMI SQUIRES introduced to surroundings, call light, bed controls, phone, TV, temperature control, lights, meal times, smoking policy, visitor policy, side rail policy, bathrooms and showers. Patient Rights given to patient in the handbook. YUMI SQUIRES verbalizes understanding that [facility] is not responsible for the loss or damage to any personal effects or valuables that are kept in the patients posession during their hospitalization. The following Patient Care Plans and discharge were discussed with the patient. YUMI SQUIRES verbalizes understanding of Interdisciplinary Patient Education. Patient was informed about the Rapid Response Team and its purpose.
[2020-12-13] MEDS: HYDROcodone/APAP 7.5 MG/325 MG (LORTAB, LORCET PLUS) TABLET PO PRN (18:23)
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
--- NOTE | 2020-12-13 18:52 | NUR ---
transportation called patient while i was in the room and stated they will pick her up at her house(home address) , this nurse informed the transportation person that the patient was at the hospital, the mechanic driver stated she will have to check with her telephone supervisor as she was not aware that the patient was at the hospital, will pass on report tonight for morning shift nurse to f/u on this d/t the mis-communication
[2020-12-13 19:54] VITALS: BP 164/74
[2020-12-14 00:16] VITALS: BP 146/70
[2020-12-14] MEDS: HYDROcodone/APAP 7.5 MG/325 MG (LORTAB, LORCET PLUS) TABLET PO PRN ×2 (02:28→10:48)
[2020-12-14 04:00] VITALS: BP 140/65
[2020-12-14] MEDS: HYDROmorphone 2 MG/ML VIAL (DILAUDID) IVP PRN (04:15)
[2020-12-14 08:00] VITALS: BP 138/82
[2020-12-14] MEDS ORDERED: ROSUVASTATIN 5 MG (CRESTOR) TABLET PO SCH (09:00)
[2020-12-14] MEDS ORDERED: RIVAROXABAN 20 MG TABLET (XARELTO) PO SCH (09:00)
[2020-12-14] MEDS ORDERED: ASPIRIN E.C. 81 MG (ECOTRIN) TAB PO SCH (09:00)
[2020-12-14] MEDS ORDERED: PANTOPRAZOLE 20 MG TABLET (PROTONIX) PO SCH (09:00)
[2020-12-14] MEDS ORDERED: amLODIPine 10 MG (NORVASC) TAB PO SCH (09:00)
[2020-12-14] MEDS ORDERED: ISOSORBIDE MONONITRATE 30 MG (IMDUR) TAB PO SCH (09:00)
[2020-12-14] MEDS ORDERED: DULoxetine 30 MG (CYMBALTA) CAP PO SCH (09:00)
--- NOTE | 2020-12-14 09:53 | Discharge Summary ---
Discharge [facility] Discharge Medications Continued Medications: Amlodipine Besylate (Amlodipine Besylate) 10 Mg Tablet 10 MG PO DAILY, TAB Aspirin (Aspirin EC) 81 Mg Tablet.dr 81 MG PO DAILY, TAB Diclofenac Sodium (Diclofenac Sodium) 100 Gm Gel..gram. 100 GM TP QID, TUBE Duloxetine HCl (Duloxetine HCl) 60 Mg Capsule.dr 60 MG PO DAILY, CAP Gabapentin (Gabapentin) 300 Mg Capsule 300 MG PO Q8H PRN for NERVE PAIN, CAP Hydrocodone Bit/Acetaminophen (HYDROcodone/APAP 7.5/325 TAB) 1 Each Tablet 1 TAB PO Q6H PRN for PAIN-MODERATE (5-7) for 7 Days, TAB Isosorbide Mononitrate (Isosorbide Mononitrate ER) 30 Mg Tab.er.24h 30 MG PO DAILY, TAB Pantoprazole Sodium (Pantoprazole Sodium) 20 Mg Tablet.dr 20 MG PO DAILY, TAB Rivaroxaban (Xarelto) 20 Mg Tablet 20 MG PO DAILY, TAB Rosuvastatin Calcium (Rosuvastatin Calcium) 5 Mg Tablet 5 MG PO DAILY, TAB Patient Instructions Goal/Follow Up Appt: Follow up with Ortho Spine today at 1:30 Follow up with Edwardo Luis at [facility] on 12/19 at 11:40 am. Activity & Diet Discharge Diet: Cardiac Diet Activity as Tolerated: Yes Copy Copies To 1: MATTHEW Pool BETHANY N MD Dec 14, 2020 09:53
--- NOTE | 2020-12-14 11:19 | Physical Therapy Progress Note ---
Therapy Progress Note Patient up independently in room ambulating and bending over to pick things off the floor. Patient to have Ortho consult on this date then home. Patient would benefit from outpatient PT to address back pain. 1 visit (2180) LEIGHTON VENTURA PT Dec 14, 2020 11:19
--- NOTE | 2020-12-14 12:05 | NUR ---
CM/SS: Visited with pt as per plan for discharge - confirming that she will have Medicaid transport pick her up - Ride #[id number] - to transport her to [facility] and then back to home. Plan: Pt to go to Appt via [employer] transportation to [facility] then be transported to home. Summary: Pt reminded as to the plan for transportation and that they will take her home after appointment. Pt seems to feel better today, but is eager to go to her appointment to get some answers and pain relief. Pt is reminded to call [facility] Genetic Supervisor as to the outcome of appt. Discussed also assistive devices for pt's hearing impaired son that can alert him as to when she would need help. Pt reports she will check into them. Pt is wished well.
[2020-12-14 12:15] VITALS: BP 138/82
--- NOTE | 2020-12-14 12:18 | Discharge Summary ---
RICKIE SHAW MED STUDENT 12/14/20 1218: Diagnosis/Chief Complaint Date of Admission Dec 13, 2020 at 15:34 Date of Discharge Dec 14, 2020 Discharge Date: Dec 14, 2020 Discharge Time: 12:00 Admission Diagnosis Admission Diagnosis low back pain and dysfunction with radiating symptoms Discharge Diagnosis low back pain and dysfunction with radiating symptoms Reason Hospital Visit Pt presented to the ER yesterday for right lower quadrant pain that is radiating to her back, pelvis, gluteal region, and down the front of her right leg to just above the ankle. Today her pain is was described as "tolerable" with Diladid and Hyrdrocodone. She is not walking at all is having to use the bed gilmore. Pt complained of being tired, but stated that her appetite had returned to normal. Her vitals and labs were monitored during her stay and will be discharged at 1200 today for [facility] for further evalutaion and possible treatment. Discharge Summary Hospital Course Was the Problem List Reviewed?: Yes Labs Laboratory Tests 12/13/20 11:36: Red Cell Distribution Width 15.1H, Neutrophils (%) (Auto) 40L, Lymphocytes (%) (Auto) 46H 12/13/20 11:48: Urine Specific [place] 1.025H, Urine Squamous Epithelial Cells 10-25H, Urine Crystals PRESENTH, Urine Amorphous Sediment MOD JACQUIE URATESH, Urine Mucus SMALLH Procedures None. Discharge Physical Examination Allergies: Coded Allergies: morphine (Verified Allergy, Unknown, 09/03/19) tramadol (Verified Allergy, Unknown, 09/03/19) Vitals & I&Os Vital Signs Date Time Temp Pulse Resp B/P (MAP) Pulse Ox O2 Delivery O2 Flow Rate FiO2 12/14/20 08:00 Room Air 12/14/20 08:00 36.1 61 18 138/82 (100) 95 General Appearance: Alert, Oriented X3, Cooperative, Moderate Distress HEENT: PERRLA Respiratory: Normal Air Movement, Other (wheezing throughout, dyspnea with exertion) Cardiovascular: Regular Rate, Normal S1, Normal S2, No Murmurs Abdominal: Normal Bowel Sounds, Soft, No Hepatosplenomegaly, No Masses, Other (tenderness to palpation in RLQ) Extremities: No Clubbing, No Edema, Normal Pulses, Other (tenderness along anterior right leg down to above the ankle) Skin: No Rashes, No Breakdown, No Significant Lesion Neuro: Normal Speech, Sensation Intact, Cranial Nerves 3-12 NL, Other (muscle strength inproved on the RLE to 4+) Psych/Mental Status: Mental Status NL, Mood NL Discussion & Recommendations Pt has been constipated for 3 days Discharge Home Medications Reviewed and agree with Discharge Medication list on patient's Discharge Instruction sheet Instructions to Patient/Family Please see electronic discharge instructions given to patient. WILLIAM FRANCOIS MD 12/14/202113: Discharge Summary Hospital Course Hospital Course Pt admitted for pain control, discharged with ride to Ortho appointment. Lumbar spine CT: FINDINGS: Some chronic old mild middle 3rd endplate concavities at L1, L2, L3, L4, and L5 are unchanged. No acute endplate irregularity. The pedicles and pars are intact. There is degenerative hypertrophy of the facets throughout the lumbar spine but more progressive as we move inferiorly. There is multilevel disc bulge and endplate osteophytes with thickening of the ligamenta flava. No paravertebral mass, hemorrhage, or fluid collection. L1-L2: There is mild canal and mild right foraminal stenosis. L2-L3: Ligamentous thickening, facet arthrosis, disc bulge, and endplate osteophytes result in mild to moderate canal stenosis with mild to moderate right and mild left foraminal narrowing. L3-L4: Ligamentous thickening, disc bulge, and facet arthrosis result in a moderate to severe magnitude of central canal stenosis with moderate bi-foraminal narrowing. L4-L5: Ligamenta flava thickening, disc bulge, and endplate osteophytes severely stenose the thecal sac. There is moderate to severe bi-foraminal stenoses. L5-S1: Disc bulge and endplate osteophytes result in moderate right and moderate to severe left neuroforaminal stenosis with mild to moderate canal narrowing. IMPRESSION: Substantial degrees of multilevel spinal stenosis on a multifactorial chronic basis of varying severities are listed level by level above. Normal alignment. No acute bony abnormality. No fluid collection. Discharge Physical Examination Allergies: Coded Allergies: morphine (Verified Allergy, Unknown, 09/03/19) tramadol (Verified Allergy, Unknown, 09/03/19) General Appearance: Alert, No Acute Distress Cardiovascular: Regular Rate, No Murmurs Abdominal: Normal Bowel Sounds, Soft, No Tenderness Extremities: No Edema Neuro: Normal Speech, Other (muscle strength inproved on the RLE to 4+) Psych/Mental Status: Mood NL Supervisory-Addendum Brief Verification & Attestation Participated in pt care: history, MDM, physical Personally performed: exam, history Care discussed with: Medical Student Procedures: n/a I saw and examined patient today, see my physical exam documentation. Agree with medical student documentation. Patient with lumbar spinal stenosis and neuroforaminal stenosis causing radiculoapthy with weakness and difficulty with normal functioning, appt with Ortho spine today. RICKIE SHAW MED STUDENT Dec 14, 2020 12:18 WILLIAM FRANCOIS MD Dec 14, 2020 21:14
== END 2020-12-14 12:15 | disposition home or self-care (01) ==
LOC: EDUNIT# 10:40 → ER 10:41 → 4TH 15:34
PROVIDERS: ADMIT Family Medicine; ATTEND Family Medicine
DX: M48.061 Spinal stenosis, lumbar region without neurogenic claudication (principal); I25.10 Atherosclerotic heart disease of native coronary artery without angina pectoris; I48.91 Unspecified atrial fibrillation; G62.9 Polyneuropathy, unspecified; G89.29 Other chronic pain; M06.9 Rheumatoid arthritis, unspecified; E03.9 Hypothyroidism, unspecified; F17.210 Nicotine dependence, cigarettes, uncomplicated; Z79.82 Long term (current) use of aspirin; Z79.899 Other long term (current) drug therapy; Z88.5 Allergy status to narcotic agent; Z90.710 Acquired absence of both cervix and uterus; Z86.73 Personal history of transient ischemic attack (TIA), and cerebral infarction without residual deficits; Z83.3 Family history of diabetes mellitus; Z80.9 Family history of malignant neoplasm, unspecified
CPT/HCPCS: 36415; 72131; 80048; 81000; 85025; G0378

== ENCOUNTER → 2021-01-17 | Outpatient (CLI) | payer OTHER, MEDICAID ==
[~2021-01-17] MED LIST changes: +DICL100G27 TP; +DULO60CA59 PO; -ISOS30TA3 PO; +ISOS30TA82 PO; +PANT20TA18 PO
--- NOTE | 2021-01-17 14:23 | Diagnostic Imaging Report ---
Indication: Right breast density. Patient presents for additional views. Correlation is made with screening study from 11/28/2020. Unilateral right 2-D and 3-D diagnostic mammography was performed with CAD. This includes spot compression CC and ML views as well as conventional 90 degrees lateral views. Additional views show persistent nodule in the inner right breast approximately 8 cm from the nipple. This appears to be at the nipple line on the lateral view and is at approximately 3:00 location. IMPRESSION: BI-RADS 0 Persistent nodular density inner right breast 8 cm from the nipple, as described. Further evaluation with ultrasound is recommended and will be performed today. ACR BI-RADS Category 0: Incomplete. (Needs additional imaging evaluation). Result letter will be mailed to the patient. Note: At least 10% of breast cancer is not imaged by mammography. Dictated by: Dictated on workstation # [id number]
--- NOTE | 2021-01-17 19:47 | Diagnostic Imaging Report ---
INDICATION: Right breast density. COMPARISON: Correlation is made with diagnostic mammogram earlier the same day and screening mammogram from 11/28/2020. EXAMINATION: Sonographic interrogation in the right breast was performed. FINDINGS: No sonographic abnormality is seen. No solid or cystic mass is detected. IMPRESSION: No sonographic abnormality is identified. Even so, follow-up right mammogram in six months is recommended to show continued stability. ACR BI-RADS Category 3: Probably benign findings. Result letter will be mailed to the patient. Note: At least 10% of breast cancer is not imaged by mammography. Dictated by: Dictated on workstation # [id number]
== END ==
LOC: RAD 13:58
PROVIDERS: ATTEND Physician Assistant
DX: N63.10 Unspecified lump in the right breast, unspecified quadrant (principal)
CPT/HCPCS: 76642; 77065; G0279

== ENCOUNTER 2021-04-02 14:44 | Emergency (ER) | payer OTHER, MEDICAID ==
[~2021-04-02] VITALS: Ht 160 cm; Wt 104.5 kg
[2021-04-02] MEDS ORDERED: ASPIRIN 81 MG CHEW (CHILDREN'S ASA) PO ONE (15:00)
[2021-04-02 15:08] LABS: BASOPHILS % (AUTO) 1 % (0-10); EOSINOPHILS # (AUTO) 0.3 10^3/uL (0.0-0.3); EOSINOPHILS % (AUTO) 3 % (0-10); HEMATOCRIT 39 % (35-52); HEMOGLOBIN 12.5 g/dL (11.5-16.0); LYMPHOCYTES # (AUTO) 2.9 10^3/uL (1.0-4.0); LYMPHOCYTES % (AUTO) 35 % (12-44); MEAN CORPUSCULAR HEMOGLOBIN 29 pg (25-34); MEAN CORPUSCULAR HGB CONC 32 g/dL (32-36); MEAN CORPUSCULAR VOLUME 89 fL (80-99); MEAN PLATELET VOLUME 10.9 fL (9.0-12.2); MONOCYTES # (AUTO) 0.8 10^3/uL (0.0-1.0); MONOCYTES % (AUTO) 10 % (0-12); NEUTROPHILS # (AUTO) 4.1 10^3/uL (1.8-7.8); NEUTROPHILS % (AUTO) 51 % (42-75); PLATELET COUNT 348 10^3/uL (130-400); WHITE BLOOD COUNT 8.1 10^3/uL (4.3-11.0)
--- NOTE | 2021-04-02 15:10 | ED Neurological Problem ---
General Chief Complaint: Neurological Problems Stated Complaint: BYRNE,JAW/BACK PAIN, L ARM NUMBNESS Source: patient Exam Limitations: no limitations History of Present Illness Date Seen by Provider: April 02, 2021 Time Seen by Provider: 15:07 Initial Comments To ER with reports of a multitude of complaints. She reports left sided headach e behind her left ear, numbness and pain to the left side of her face including the left cheek. She notices weakness to the left side of her face. She has pain and numbness down the left arm and left leg which is chronic. She has vaginal discharge as well as diffuse abdominal pain ongoing for a couple of weeks. The pain behind her left ear as well as the left facial numbness and pain and paralysis started 48 hours ago. She is very tearful. Severity: moderate Associated Symptoms: No fever/chills Allergies and Home Medications Allergies Coded Allergies: morphine (Verified Allergy, Unknown, 09/03/19) tramadol (Verified Allergy, Unknown, 09/03/19) Home Medications Amlodipine Besylate 10 Mg Tablet, 10 MG PO DAILY, (Reported) Aspirin 81 Mg Tablet.dr, 81 MG PO DAILY, (Reported) Diclofenac Sodium 100 Gm Gel..gram., 100 GM TP QID, (Reported) Duloxetine HCl 60 Mg Capsule.dr, 60 MG PO DAILY, (Reported) Gabapentin 300 Mg Capsule, 300 MG PO Q8H PRN for NERVE PAIN, (Reported) Hydrocodone Bit/Acetaminophen 1 Each Tablet, 1 TAB PO Q6H PRN for PAIN-MODERATE (5-7), (Reported) Isosorbide Mononitrate 30 Mg Tab.er.24h, 30 MG PO DAILY, (Reported) Pantoprazole Sodium 20 Mg Tablet.dr, 20 MG PO DAILY, (Reported) Prednisone 20 Mg Tab, 20 MG PO DAILY Take 3 tabs(60mg)daily, decrease by 1/2 tab(10mg)daily. Prescribed by: MEAGAN JUAREZ on 04/02/21 2788 Rivaroxaban 20 Mg Tablet, 20 MG PO DAILY, (Reported) Rosuvastatin Calcium 5 Mg Tablet, 5 MG PO DAILY, (Reported) Patient Home Medication List Home Medication List Reviewed: Yes Review of Systems Review of Systems Constitutional: see HPI; No chills, No fever Eyes: No Symptoms Reported Ears, Nose, Mouth, Throat: no symptoms reported Respiratory: no symptoms reported Cardiovascular: no symptoms reported Gastrointestinal: abdominal pain Genitourinary: see HPI, discharge Musculoskeletal: see HPI, back pain (Chronic back pain that radiates down the left leg. 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) Neuropathy [employer] History: Tubal Ligation, Menopausal Genitourinary: No Gastrointestinal: Yes (SBO 15 years ago) Chronic Diarrhea Musculoskeletal: Yes Rheumatoid Arthritis, Chronic Back Pain Endocrine: No Hypothyroidsim HEENT: No Loss of Vision: Denies Hearing Impairment: Denies Cancer: No Psychosocial: No Integumentary: Yes (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 oz. kg; 41.67 BMI Method: General Appearance: WD/WN, no apparent distress HEENT: PERRL/EOMI, normal ENT inspection, other (Tender behind the left ear. No erythema or vesicles within the ear canal which has a normal appearance. She reports pain to the left cheek which has a normal appearance. There is paralysis of the left side of the forehead as she is unable to raise the eyebrow on this side. When she tries to puff out her cheeks air leaks out the left side of her mouth as she is unable to close it tightly.) Neck: non-tender, full range of motion Respiratory: normal breath sounds, no respiratory distress, no accessory muscle use Cardiovascular: regular rate, rhythm, no murmur Gastrointestinal: normal bowel sounds, non tender, soft Neurologic/Psychiatric: alert, normal mood/affect, oriented x 3 Crainal Nerves: normal hearing, normal speech, PERRL Motor/Sensory: no motor deficit, no pronator drift Skin: normal color, warm/dry Progress/Results/Core Measures Results/Orders Lab Results Laboratory Tests Test 04/02/21 14:56 04/02/21 15:12 04/02/21 15:50 Range/Units White Blood Count 8.1 4.3-11.0 10^3/uL Red Blood Count 4.36 3.80-5.11 10^6/uL Hemoglobin 12.5 11.5-16.0 g/dL Hematocrit 39 35-52 % Mean Corpuscular Volume 89 80-99 fL Mean Corpuscular Hemoglobin 29 25-34 pg Mean Corpuscular Hemoglobin Concent 32 32-36 g/dL Red Cell Distribution Width 14.4 10.0-14.5 % Platelet Count 348 130-400 10^3/uL Mean Platelet Volume 10.9 9.0-12.2 fL Immature Granulocyte % (Auto) 0 % Neutrophils (%) (Auto) 51 42-75 % Lymphocytes (%) (Auto) 35 12-44 % Monocytes (%) (Auto) 10 0-12 % Eosinophils (%) (Auto) 3 0-10 % Basophils (%) (Auto) 1 0-10 % Neutrophils # (Auto) 4.1 1.8-7.8 10^3/uL Lymphocytes # (Auto) 2.9 1.0-4.0 10^3/uL Monocytes # (Auto) 0.8 0.0-1.0 10^3/uL Eosinophils # (Auto) 0.3 0.0-0.3 10^3/uL Basophils # (Auto) 0.0 0.0-0.1 10^3/uL Immature Granulocyte # (Auto) 0.0 0.0-0.1 10^3/uL Sodium Level 142 135-145 MMOL/L Potassium Level 3.3 L 3.6-5.0 MMOL/L Chloride Level 107 98-107 MMOL/L Carbon Dioxide Level 25 21-32 MMOL/L Anion Gap 10 5-14 MMOL/L Blood Urea Nitrogen 10 7-18 MG/DL Creatinine 0.78 0.60-1.30 MG/DL Estimat Glomerular Filtration Rate > 60 BUN/Creatinine Ratio 13 Glucose Level 110 H 70-105 MG/DL Calcium Level 9.1 8.5-10.1 MG/DL Corrected Calcium 9.2 8.5-10.1 MG/DL Magnesium Level 1.8 1.6-2.4 MG/DL Total Bilirubin 0.8 0.1-1.0 MG/DL Aspartate Amino Transf (AST/SGOT) 13 5-34 U/L Alanine Aminotransferase (ALT/SGPT) 10 0-55 U/L Alkaline Phosphatase 119 40-136 U/L Myoglobin 20.8 10.0-92.0 NG/ML Troponin I < 0.028 <0.028 NG/ML B-Type Natriuretic Peptide 92.7 <100.0 PG/ML Total Protein 6.7 6.4-8.2 GM/DL Albumin 3.9 3.2-4.5 GM/DL Prothrombin Time 14.7 12.2-14.7 SEC INR Comment 1.1 0.8-1.4 Activated Partial Thromboplast Time 33 24-35 SEC Urine Color YELLOW Urine Clarity CLEAR Urine pH 6.5 5-9 Urine Specific [place] <=1.005 1.016-1.022 Urine Protein NEGATIVE NEGATIVE Urine Glucose (UA) NEGATIVE NEGATIVE Urine Ketones NEGATIVE NEGATIVE Urine Nitrite NEGATIVE NEGATIVE Urine Bilirubin NEGATIVE NEGATIVE Urine Urobilinogen 0.2 < = 1.0 MG/DL Urine Leukocyte Esterase NEGATIVE NEGATIVE Urine RBC (Auto) NEGATIVE NEGATIVE Urine RBC NONE /HPF Urine WBC RARE /HPF Urine Squamous Epithelial Cells 2-5 /HPF Urine Crystals NONE /LPF Urine Bacteria TRACE /HPF Urine Casts NONE /LPF Urine Mucus NEGATIVE /LPF Urine Culture Indicated NO Urine Opiates Screen POSITIVE H NEGATIVE Urine Oxycodone Screen NEGATIVE NEGATIVE Urine Methadone Screen NEGATIVE NEGATIVE Urine Propoxyphene Screen NEGATIVE NEGATIVE Urine Barbiturates Screen NEGATIVE NEGATIVE Ur Tricyclic Antidepressants Screen NEGATIVE NEGATIVE Urine Phencyclidine Screen NEGATIVE NEGATIVE Urine Amphetamines Screen NEGATIVE NEGATIVE Urine Methamphetamines Screen NEGATIVE NEGATIVE Urine Benzodiazepines Screen NEGATIVE NEGATIVE Urine Cocaine Screen NEGATIVE NEGATIVE Urine Cannabinoids Screen NEGATIVE NEGATIVE My Orders Orders - MEAGAN JUAREZ [employer] Cbc With Automated Diff (04/02/21 14:48) Magnesium (04/02/21 14:48) Comprehensive Metabolic Panel (04/02/21 14:48) Myoglobin Serum (04/02/21 14:48) Protime With Inr (04/02/21 14:48) Partial Thromboplastin Time (04/02/21 14:48) BNP (04/02/21 14:48) Troponin I (04/02/21 14:48) Chest 1 View, Ap/Pa Only (04/02/21 14:48) Ekg Tracing (04/02/21 14:48) O2 (04/02/21 14:48) Monitor-Rhythm Ecg Trace Only (04/02/21 14:48) Ed Iv/Invasive Line Start (04/02/21 14:48) Aspirin Chewable Tablet (Baby Aspirin Ch (04/02/21 15:00) Mri Brain W/O Contrast (04/02/21 15:04) Lorazepam Injection (Ativan Injection) (04/02/21 15:15) Ketorolac Injection (Toradol Injection) (04/02/21 15:15) Ua Culture If Indicated (04/02/21 15:11) Drug Screen Stat (Urine) (04/02/21 15:11) Medications Given in ED Current Medications Medications Dose Ordered Sig/Willian Route Start Time Stop Time Status Last Admin Dose Admin Aspirin 324 mg ONCE ONCE PO 04/02/21 15:00 04/02/21 15:01 DC 04/02/21 15:12 324 MG Ketorolac Tromethamine 15 mg ONCE ONCE IVP 04/02/21 15:15 04/02/21 15:16 DC 04/02/21 15:14 15 MG Lorazepam 1 mg ONCE ONCE IVP 04/02/21 15:15 04/02/21 15:16 DC 04/02/21 15:15 1 MG Vital Signs/I&O 04/02/21 04/02/21 04/02/21 14:51 15:29 17:19 Temp 37.1 Pulse 70 67 61 Resp 20 18 18 B/P (MAP) 181/102 (128) 143/96 (112) 153/83 Pulse Ox 98 94 98 O2 Delivery Room Air Room Air Departure Communication (Admissions) NAME: YUMI SQUIRES Curtis [facility] REC#: [id number] PT STATUS: REG ER : 04/17/1955 PHYSICIAN: MEAGAN JUAREZ APRN ADMIT DATE: 04/02/21/ER Draft Date of Exam:04/02/21 CHEST 1 VIEW, AP/PA ONLY INDICATION: Chest pain. TECHNIQUE: Single view chest 3:06 p.m. CORRELATION STUDY: 09/03/2019 FINDINGS: Heart size remains enlarged. Vasculature appears increased and more prominent from prior. The lungs are clear with no consolidating infiltrate. There is no significant effusion or pneumothorax. IMPRESSION: 1. Cardiac enlargement overall is less severe from prior. However, the vasculature appears increased from prior and does raise concern for fluid overload or failure. Dictated on workstation # [id number] Dict: 04/02/21 1518 Trans: 04/02/[address] [facility] [id number] Interpreted by: CARMELINA CASTILLO DO Electronically signed by: Impression Primary Impression: Sciatic leg pain Additional Impressions: History of CVA (cerebrovascular accident) Bernardo's palsy Disposition: HOME, SELF-CARE Condition: Stable Departure-Patient Inst. Decision time for Depature: 16:45 Referrals: JOHN SPENCER (PCP) Primary Care Physician [facility]JOE (Family) Primary Care Physician Patient Instructions: Bernardo's Palsy Add. Discharge Instructions: Medication as directed. Follow-up with your doctor next week. All discharge instructions reviewed with patient and/or family. Voiced understanding. Scripts Prednisone (Prednisone) 20 Mg Tab 20 MG PO DAILY, #11 TAB Take 3 tabs(60mg)daily, decrease by 1/2 tab(10mg)daily. Prov: MEAGAN JUAREZ APRN 04/02/21 MEAGAN JUAREZ APRN April 02, 2021 15:10
[2021-04-02] MEDS ORDERED: KETOROLAC 30 MG/ML VIAL IVP ONE (15:15)
[2021-04-02] MEDS ORDERED: LORazepam INJ 2 MG/ML (ATIVAN) VIAL IVP ONE (15:15)
[2021-04-02 15:18] LABS: ALBUMIN 3.9 GM/DL (3.2-4.5); CHLORIDE 107 MMOL/L (98-107); POTASSIUM 3.3 MMOL/L (3.6-5.0); SODIUM 142 MMOL/L (135-145)
[2021-04-02 15:20] LABS: CALCIUM 9.1 MG/DL (8.5-10.1)
[2021-04-02 15:21] LABS: GLUCOSE 110 MG/DL (70-105); TOTAL PROTEIN 6.7 GM/DL (6.4-8.2)
--- NOTE | 2021-04-02 15:21 | Diagnostic Imaging Report ---
INDICATION: Chest pain. TECHNIQUE: Single view chest 3:06 p.m. CORRELATION STUDY: 09/03/2019 FINDINGS: Heart size remains enlarged. Vasculature appears increased and more prominent from prior. The lungs are clear with no consolidating infiltrate. There is no significant effusion or pneumothorax. IMPRESSION: 1. Cardiac enlargement overall is less severe from prior. However, the vasculature appears increased from prior and does raise concern for fluid overload or failure. Dictated by: Dictated on workstation # [id number]
[2021-04-02 15:22] LABS: CARBON DIOXIDE 25 MMOL/L (21-32)
[2021-04-02 15:23] LABS: BILIRUBIN,TOTAL 0.8 MG/DL (0.1-1.0)
[2021-04-02 15:24] LABS: ALKALINE PHOSPHATASE 119 U/L (40-136)
[2021-04-02 15:25] LABS: CREATININE SERUM 0.78 MG/DL (0.60-1.30); GFR ESTIMATED > 60
[2021-04-02 15:26] LABS: BUN/CREATININE RATIO 13
[2021-04-02 15:27] LABS: ALANINE AMINOTRANSFERASE 10 U/L (0-55); MAGNESIUM 1.8 MG/DL (1.6-2.4)
[2021-04-02 15:35] LABS: INR 1.1 (0.8-1.4); PROTHROMBIN TIME PATIENT 14.7 SEC (12.2-14.7)
[2021-04-02 16:04] LABS: BILIRUBIN,URINE NEGATIVE (NEGATIVE); CLARITY,URINE CLEAR; COLOR,URINE YELLOW; GLUCOSE, URINE (UA) NEGATIVE (NEGATIVE); KETONES,URINE NEGATIVE (NEGATIVE); LEUKOCYTE ESTERASE ,URINE NEGATIVE (NEGATIVE); NITRITE,URINE NEGATIVE (NEGATIVE); PH,URINE 6.5 (5-9); PROTEIN,URINE NEGATIVE (NEGATIVE)
[2021-04-02 16:13] LABS: AMPHETAMINE SCREEN, URINE NEGATIVE (NEGATIVE); BACTERIA,URINE TRACE /HPF; BARBITURATE SCREEN URINE NEGATIVE (NEGATIVE); BENZODIAZEPINES SCREEN URINE NEGATIVE (NEGATIVE); CANNABINOID SCREEN, URINE NEGATIVE (NEGATIVE); COCAINE SCREEN URINE NEGATIVE (NEGATIVE); METHADONE STAT NEGATIVE (NEGATIVE); METHAMPHETAMINE SCREEN URINE S NEGATIVE (NEGATIVE); OPIATE SCREEN URINE POSITIVE (NEGATIVE); OXYCODONE STAT NEGATIVE (NEGATIVE); PROPOXYPHENE STAT NEGATIVE (NEGATIVE); TRICYCLIC ANTIDEPRESSANTS SCRE NEGATIVE (NEGATIVE); WBC,URINE RARE /HPF
--- NOTE | 2021-04-02 16:21 | Diagnostic Imaging Report ---
PROCEDURE: MR imaging of the brain without contrast. TECHNIQUE: Multiplanar, multisequence MR imaging of the brain was performed without contrast. INDICATION: Left-sided numbness for 2 days. COMPARISON: None FINDINGS: No acute ischemia, mass, or hemorrhage. Focal areas of T2 hyperintense signal are seen in the periventricular and subcortical white matter. The ventricles, cortical sulci, and basilar cisterns are symmetric and unremarkable. The sellar and suprasellar regions have a normal appearance. The brainstem and posterior fossa are unremarkable. The paranasal sinuses and mastoid air cells demonstrate normal signal characteristics. The globes and orbits are symmetric and unremarkable. The scalp and calvarium have a normal appearance. IMPRESSION: 1. No acute ischemia, mass, or hemorrhage. 2. Scattered chronic microvascular disease. Dictated by: Dictated on workstation # [id number]
[2021-04-02] MEDS ORDERED: PRD20T PO (16:48)
[2021-04-02 17:19] VITALS: BP 153/83
== END 2021-04-02 17:18 | disposition home or self-care (01) ==
LOC: EDUNIT# 14:44 → ER 14:48
DX: G51.0 Bell's palsy (principal); M54.32 Sciatica, left side; I25.10 Atherosclerotic heart disease of native coronary artery without angina pectoris; I48.91 Unspecified atrial fibrillation; E11.40 Type 2 diabetes mellitus with diabetic neuropathy, unspecified; M06.9 Rheumatoid arthritis, unspecified; G89.29 Other chronic pain; Z86.73 Personal history of transient ischemic attack (TIA), and cerebral infarction without residual deficits; Z79.82 Long term (current) use of aspirin; Z79.01 Long term (current) use of anticoagulants; Z79.891 Long term (current) use of opiate analgesic; Z79.899 Other long term (current) drug therapy; Z88.5 Allergy status to narcotic agent
CPT/HCPCS: 36415; 70551; 71045; 80053; 80306; 81000; 83735; 83874; 83880; 84484; 85025; 85610; 85730; 93005; 93041

== ENCOUNTER 2022-04-13 00:07 | Inpatient (IN) | payer MEDICARE, MEDICAID ==
[~2022-04-13] VITALS: Ht 165 cm; Wt 104.1 kg
[~2022-04-13 00:07] MED LIST changes: +CLIN-144 PO; -CLIN300C12 PO; -DICL100G27 TP; +DICL100G32 TP; -METH5TAB5 PO; +METH5TAB95 PO
[2022-04-13] MEDS ORDERED: NITROGLYCERIN 0.4 MG SL TABS BTL 25'S SL PRN (00:15)
[2022-04-13 00:33] LABS: BILIRUBIN,URINE NEGATIVE (NEGATIVE); CLARITY,URINE CLEAR; COLOR,URINE YELLOW; GLUCOSE, URINE (UA) NEGATIVE (NEGATIVE); KETONES,URINE NEGATIVE (NEGATIVE); LEUKOCYTE ESTERASE ,URINE NEGATIVE (NEGATIVE); NITRITE,URINE NEGATIVE (NEGATIVE); PROTEIN,URINE NEGATIVE (NEGATIVE)
[2022-04-13 00:37] LABS: BASOPHILS # (AUTO) 0.1 10^3/uL (0.0-0.1); BASOPHILS % (AUTO) 1 % (0-10); EOSINOPHILS # (AUTO) 0.2 10^3/uL (0.0-0.3); EOSINOPHILS % (AUTO) 2 % (0-10); HEMATOCRIT 42 % (35-52); HEMOGLOBIN 13.8 g/dL (11.5-16.0); LYMPHOCYTES # (AUTO) 3.5 10^3/uL (1.0-4.0); LYMPHOCYTES % (AUTO) 34 % (12-44); MEAN CORPUSCULAR HEMOGLOBIN 29 pg (25-34); MEAN CORPUSCULAR HGB CONC 33 g/dL (32-36); MEAN CORPUSCULAR VOLUME 89 fL (80-99); MEAN PLATELET VOLUME 10.3 fL (9.0-12.2); MONOCYTES # (AUTO) 0.7 10^3/uL (0.0-1.0); MONOCYTES % (AUTO) 7 % (0-12); NEUTROPHILS # (AUTO) 5.8 10^3/uL (1.8-7.8); NEUTROPHILS % (AUTO) 56 % (42-75); PLATELET COUNT 317 10^3/uL (130-400); WHITE BLOOD COUNT 10.3 10^3/uL (4.3-11.0)
[2022-04-13] MEDS ORDERED: dilTIAZem DRIP PRE-MIX 125 ML IV SCH (00:45)
[2022-04-13 00:48] LABS: ALBUMIN 3.9 GM/DL (3.2-4.5); CHLORIDE 109 MMOL/L (98-107); POTASSIUM 3.5 MMOL/L (3.6-5.0); SODIUM 144 MMOL/L (135-145)
[2022-04-13 00:49] LABS: CALCIUM 9.3 MG/DL (8.5-10.1)
[2022-04-13 00:51] LABS: GLUCOSE 108 MG/DL (70-105)
[2022-04-13 00:52] LABS: BILIRUBIN,TOTAL 0.8 MG/DL (0.1-1.0); CARBON DIOXIDE 21 MMOL/L (21-32)
[2022-04-13 00:53] LABS: AMPHETAMINE SCREEN, URINE NEGATIVE (NEGATIVE); BARBITURATE SCREEN URINE NEGATIVE (NEGATIVE); BENZODIAZEPINES SCREEN URINE NEGATIVE (NEGATIVE); CANNABINOID SCREEN, URINE POSITIVE (NEGATIVE); COCAINE SCREEN URINE NEGATIVE (NEGATIVE); METHADONE STAT NEGATIVE (NEGATIVE); OPIATE SCREEN URINE POSITIVE (NEGATIVE); OXYCODONE STAT NEGATIVE (NEGATIVE); PROPOXYPHENE STAT NEGATIVE (NEGATIVE); TRICYCLIC ANTIDEPRESSANTS SCRE NEGATIVE (NEGATIVE)
[2022-04-13 00:54] LABS: ALKALINE PHOSPHATASE 106 U/L (40-136)
[2022-04-13 00:55] LABS: BACTERIA,URINE NEGATIVE /HPF; RBC,URINE 0-2 /HPF; SQUAMOUS EPITHELIAL CELL,UR RARE /HPF; WBC,URINE 0-2 /HPF
[2022-04-13 00:55] LABS: CREATININE SERUM 0.72 MG/DL (0.60-1.30); GFR ESTIMATED 93
[2022-04-13 00:56] LABS: BUN/CREATININE RATIO 8
[2022-04-13 00:57] LABS: ALANINE AMINOTRANSFERASE 10 U/L (0-55)
[2022-04-13 00:58] LABS: CREATINE KINASE 81 U/L (29-168)
[2022-04-13 01:03] LABS: FIBRIN DEGRADATION PRODUCTS 0.11 UG/ML (0.00-0.49); INR 1.6 (0.8-1.4); PROTHROMBIN TIME PATIENT 19.9 SEC (12.2-14.7)
[2022-04-13 01:05] LABS: CREATINE KINASE MB 1.2 NG/ML (<6.6)
[2022-04-13 01:18] LABS: ERYTHROCYTE SEDIMENTATION RATE 17 MM/HR (0-30); TSH (THYROID ANALYZER) 1.28 UIU/ML (0.35-4.94)
[2022-04-13] MEDS ORDERED: NITROGLYCERIN 2% OINT 1 GM UNIT DOSE PACKET TOP ONE (01:30)
--- NOTE | 2022-04-13 01:31 | ED Cardiac General ---
History of Present Illness General Chief Complaint: Chest Pain Stated Complaint: CP Nursing Triage Note: TO ED VIA [facility] FROM HOME. PT WAS WATCHING TV APPROX 2029 AND DEVELOPED CP AND TOOK A BABY ASA AT 2119. 4 81MG ASA GIVEN BY EMS EN ROUTE. EMS NOTED AFIB RVR 130-140s EN ROUTE, PT HAS HX AFIB. PT STATES SHE TAKES XARELTO DAILY AND TOOK TODAY, BUT DID MISS SOME DOSES LAST WEEK. C/O CP TO LEFT CHEST THAT RADIATES UNDER LEFT ARM AND DESCRIBES "PRESSURE". Source: patient, EMS History of Present Illness Date Seen by Provider: Apr 13, 2022 Time Seen by Provider: 00:10 Initial Comments PT ARRIVES VIA EMS PT WAS SITTING AND WATCHING TV, AND AROUND 2029 TONIGHT SHE BEGAN TO HAVE CHEST PAIN PAIN IS IS MIDDLE OF CHEST AND RADIATES TO LEFT ARMPIT PT RATES PAIN 8/10 AT THIS TIME AND DESCRIBES ALOT OF PRESSURE AND SOMETIMES SHARP PAIN IN HER CHEST. + SHORTNESS OF BREATH + NAUSEA, NO VOMITING. NO ABDOMINAL PAIN + PALPITATIONS/FEELING HER HEART RACING. PT HAS HISTORY OF ATRIAL FIBRILLATION AND IS ON XARELTO. TOOK MEDICATION TODAY, BUT MISSED IT A FEW TIMES LAST WEEK NO SWELLING IN LEGS/FEET OR PAIN IN CALVES NO SWEATS NO SYNCOPE OR DIZZINESS NO COUGH/URI SYMPTOMS NO FEVER/SWEATS/CHILLS NO RECENT ILLNESS PT CONTINUES TO SMOKE 1/2-1 PPD. SHE ALSO SMOKES MARIJUANA ON A REGULAR BASIS. DENIES ALCOHOL USE. PT TOOK 81 MG ASPIRIN AT 2119, AND EMS GAVE 4 BABY ASPIRIN PRIOR TO ARRIVAL NO IV BY EMS. NO NTG OR ANY OTHER MEDICATION GIVEN BY EMS. HR 140'S FOR EMS, WITH BP 130-150 SYSTOLIC PT STATES SHE WAS TOLD SHE HAD "A SMALL HEART ATTACK" WHEN SHE WAS FIRST DX WITH ATRIAL FIBRILLATION SEVERAL YEARS AGO WHEN SHE WAS IN [facility]. PT STATES SHE DID NOT HAVE A CARDIAC CATH OR STRESS TEST OR ANY TREATMENT FOR HEART ATTACK--ONLY FOR ATRIAL FIBRILLATION. PT HAD A STRESS TEST 01/02/[address] GRIJALVA--MINIMAL APICAL ISCHEMIA, NO WALL MOTION ABNORMALITIES, WITH EF 72% PT USED TO LIVE HERE, BUT MOVED TO [place] A YEAR AGO. PT IS HERE VISITING HER SON THIS WEEKEND. PT HAS HAD COVID-19 VACCINE X 1--SHIRIN/SHIRIN--WAS > 1 YEAR AGO. NO BOOSTER NO FLU VACCINE. 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 Allergies and Home Medications Allergies Coded Allergies: morphine (Verified Allergy, Unknown, 09/03/19) tramadol (Verified Allergy, Unknown, 09/03/19) Patient Home Medication List Home Medication List Reviewed: Yes Amlodipine Besylate (Amlodipine Besylate) 10 Mg Tablet, 10 MG PO DAILY, (Reported) Entered as Reported by: IRAJ ROBERTS on 01/03/20 145 Aspirin (Aspirin EC) 81 Mg Tablet., 81 MG PO DAILY, (Reported) Entered as Reported by: IRAJ ROBERTS on 01/03/20 145 Diclofenac Sodium (Diclofenac Sodium) 100 Gm Gel..gram., 100 GM TP QID, (Rep orted) Entered as Reported by: WILLIAM FRANCOIS on 12/13/20 172 Duloxetine HCl (Duloxetine HCl) 60 Mg Capsule., 60 MG PO DAILY, (Reported) Entered as Reported by: WILLIAM FRANCOIS on 12/13/201726 Gabapentin (Gabapentin) 300 Mg Capsule, 300 MG PO Q8H PRN for NERVE PAIN, (Reported) Entered as Reported by: IRAJ ROBERTS on 01/03/20 145 Hydrocodone Bit/Acetaminophen (HYDROcodone/APAP 7.5/325 TAB) 1 Each Tablet, 1 TAB PO Q6H PRN for PAIN-MODERATE (5-7), (Reported) Entered as Reported by: IRAJ ROBERTS on 01/03/20 145 Isosorbide Mononitrate (Isosorbide Mononitrate ER) 30 Mg Tab.er.24h, 30 MG PO DAILY, (Reported) Entered as Reported by: IRAJ ROBERTS on 01/03/20 145 Pantoprazole Sodium (Pantoprazole Sodium) 20 Mg Tablet.dr, 20 MG PO DAILY, (Reported) Entered as Reported by: WILLIAM FRANCOIS on 12/13/201726 Prednisone (Prednisone) 20 Mg Tab, 20 MG PO DAILY Prescribed by: MEAGAN JUAREZ on 04/02/21 1648 Rivaroxaban (Xarelto) 20 Mg Tablet, 20 MG PO DAILY, (Reported) Entered as Reported by: IRAJ ROBERTS on 01/03/20 145 Rosuvastatin Calcium (Rosuvastatin Calcium) 5 Mg Tablet, 5 MG PO DAILY, (Reported) Entered as Reported by: IRAJ ROBERTS on 01/03/20 5290 Review of Systems Review of Systems Constitutional: no symptoms reported; No chills, No diaphoresis, No dizziness, No fever EENTM: No Symptoms Reported Respiratory: See HPI, Shortness of Air Cardiovascular: See HPI, Chest Pain; Denies Edema; Irregular Heart Rate; Denies Lightheadedness; Palpitations; Denies Syncope Gastrointestinal: See HPI; Denies Abdominal Pain; Nausea; Denies Vomiting Genitourinary: No Symptoms Reported Musculoskeletal: no symptoms reported Skin: no symptoms reported Psychiatric/Neurological: Anxiety Endocrine: No Symptoms Reported Hematologic/Lymphatic: See HPI Past Flylwqd-Zzncet-Pgrdjr Hx Patient Social History Tobacco Use?: Yes Tobacco type used: Cigarettes Smoking Status: Current Everyday Smoker Substance use?: Yes Substance type: Marijuana Alcohol Use?: No Immunizations Up To Date Tetanus Booster (TDap): Unknown COVID19 Vaccine 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: [employer] Seasonal Allergies Seasonal Allergies: No Past Medical History Surgeries: Yes Abdominal, Appendectomy, Gallbladder, 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, Tubal Ligation Respiratory: No Cardiac: Yes Atrial Fibrillation, Coronary Artery Disease, Heart Attack, High Cholesterol, Hypertension 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) Neuropathy 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: 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, Tubal Ligation, Menopausal Genitourinary: No Gastrointestinal: Yes (SBO 15 years ago;S/P APPY, FLOR) Gastroesophageal Reflux, Obstructive Bowel, Diverticulosis, Chronic Diarrhea, Esophagitis, Hiatal Hernia, Gall Bladder Disease Musculoskeletal: Yes Degenerate Disk Disease, Rheumatoid Arthritis, Chronic Back Pain Endocrine: Yes (OBESITY) Hypothyroidsim HEENT: No Loss of Vision: Denies Hearing Impairment: Denies Cancer: No Psychosocial: No Integumentary: Yes (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 GARRIDO -DX HIATAL HERNIA, ESOPHAGITIS. STRESS TEST 12/31/[address] GRIJALVA: CONCLUSIONS: 1. This study suggests a minimal amount of apical ischemia. 2. Normal regional wall motion. 3. Normal global left ventricular systolic function with ejection fraction of 72%. Physical Exam Vital Signs Vital Signs - First Documented 04/13/22 00:11 Temp 36.8 Pulse 140 Resp 20 B/P (MAP) 139/78 (98) Pulse Ox 97 O2 Delivery Room Air Capillary Refill : Less Than 3 Seconds Height, Weight, BMI Height: '" Weight: lbs. oz. kg; 40.00 BMI Method: General Appearance: Obese, Other (SOMEWHAT DRAMATIC ON ARRIVAL, CRYING, HOLDING HER CHEST, AND NEEDS TO URINATE ON ARRIVAL, AND IMMEDIATELY GETS UP TO BEDSIDE COMMODE FROM EMS COT, BEFORE SHE WILL GET ON ER CART. ) Neck: Normal Inspection, Non Tender, Supple; No Carotid Bruit, No JVD Respiratory: Chest Non Tender, Normal Breath Sounds, No Accessory Muscle Use, No Respiratory Distress Cardiovascular: No Edema, No JVD, No Murmur, Normal Peripheral Pulses, Irregul tanya Irregular, Tachycardia Gastrointestinal: Non Tender, Soft Extremity: Normal Capillary Refill, Normal Inspection, Normal Range of Motion, Non Tender, No Calf Tenderness, No Pedal Edema Neurologic/Psychiatric: Alert, Oriented x3, No Motor/Sensory Deficits, broacher II- XII Norm as Tested Skin: Normal Color (PT IS BLACK), Warm/Dry; No Rash Progress/Results/Core Measures Results/Orders Lab Results Laboratory Tests Test 04/13/22 00:20 04/13/22 00:28 Range/Units Urine Color YELLOW Urine Clarity CLEAR Urine pH 6.0 5-9 Urine Specific [place] <=1.005 1.016-1.022 Urine Protein NEGATIVE NEGATIVE Urine Glucose (UA) NEGATIVE NEGATIVE Urine Ketones NEGATIVE NEGATIVE Urine Nitrite NEGATIVE NEGATIVE Urine Bilirubin NEGATIVE NEGATIVE Urine Urobilinogen 0.2 < = 1.0 MG/DL Urine Leukocyte Esterase NEGATIVE NEGATIVE Urine RBC (Auto) TRACE-I H NEGATIVE Urine RBC 0-2 /HPF Urine WBC 0-2 /HPF Urine Squamous Epithelial Cells RARE /HPF Urine Crystals NONE /LPF Urine Bacteria NEGATIVE /HPF Urine Casts NONE /LPF Urine Mucus NEGATIVE /LPF Urine Culture Indicated NO Urine Opiates Screen POSITIVE H NEGATIVE Urine Oxycodone Screen NEGATIVE NEGATIVE Urine Methadone Screen NEGATIVE NEGATIVE Urine Propoxyphene Screen NEGATIVE NEGATIVE Urine Barbiturates Screen NEGATIVE NEGATIVE Ur Tricyclic Antidepressants Screen NEGATIVE NEGATIVE Urine Phencyclidine Screen NEGATIVE NEGATIVE Urine Amphetamines Screen NEGATIVE NEGATIVE Urine Methamphetamines Screen NEGATIVE NEGATIVE Urine Benzodiazepines Screen NEGATIVE NEGATIVE Urine Cocaine Screen NEGATIVE NEGATIVE Urine Cannabinoids Screen POSITIVE H NEGATIVE White Blood Count 10.3 4.3-11.0 10^3/uL Red Blood Count 4.72 3.80-5.11 10^6/uL Hemoglobin 13.8 11.5-16.0 g/dL Hematocrit 42 35-52 % Mean Corpuscular Volume 89 80-99 fL Mean Corpuscular Hemoglobin 29 25-34 pg Mean Corpuscular Hemoglobin Concent 33 32-36 g/dL Red Cell Distribution Width 15.9 H 10.0-14.5 % Platelet Count 317 130-400 10^3/uL Mean Platelet Volume 10.3 9.0-12.2 fL Immature Granulocyte % (Auto) 0 % Neutrophils (%) (Auto) 56 42-75 % Lymphocytes (%) (Auto) 34 12-44 % Monocytes (%) (Auto) 7 0-12 % Eosinophils (%) (Auto) 2 0-10 % Basophils (%) (Auto) 1 0-10 % Neutrophils # (Auto) 5.8 1.8-7.8 10^3/uL Lymphocytes # (Auto) 3.5 1.0-4.0 10^3/uL Monocytes # (Auto) 0.7 0.0-1.0 10^3/uL Eosinophils # (Auto) 0.2 0.0-0.3 10^3/uL Basophils # (Auto) 0.1 0.0-0.1 10^3/uL Immature Granulocyte # (Auto) 0.0 0.0-0.1 10^3/uL Erythrocyte Sedimentation Rate 17 0-30 MM/HR Prothrombin Time 19.9 H 12.2-14.7 SEC INR Comment 1.6 H 0.8-1.4 Activated Partial Thromboplast Time 46 H 24-35 SEC D-Dimer 0.11 0.00-0.49 UG/ML Sodium Level 144 135-145 MMOL/L Potassium Level 3.5 L 3.6-5.0 MMOL/L Chloride Level 109 H 98-107 MMOL/L Carbon Dioxide Level 21 21-32 MMOL/L Anion Gap 14 5-14 MMOL/L Blood Urea Nitrogen 6 L 7-18 MG/DL Creatinine 0.72 0.60-1.30 MG/DL Estimat Glomerular Filtration Rate 93 BUN/Creatinine Ratio 8 Glucose Level 108 H 70-105 MG/DL Calcium Level 9.3 8.5-10.1 MG/DL Corrected Calcium 9.4 8.5-10.1 MG/DL Magnesium Level 2.0 1.6-2.4 MG/DL Total Bilirubin 0.8 0.1-1.0 MG/DL Aspartate Amino Transf (AST/SGOT) 14 5-34 U/L Alanine Aminotransferase (ALT/SGPT) 10 0-55 U/L Alkaline Phosphatase 106 40-136 U/L Total Creatine Kinase 81 29-168 U/L Creatine Kinase MB 1.2 <6.6 NG/ML Myoglobin 49.1 10.0-92.0 NG/ML Troponin I < 0.028 <0.028 NG/ML C-Reactive Protein High Sensitivity 0.56 H 0.00-0.50 MG/DL B-Type Natriuretic Peptide 61.6 <100.0 PG/ML Total Protein 7.0 6.4-8.2 GM/DL Albumin 3.9 3.2-4.5 GM/DL TSH [place] Testing 1.28 0.35-4.94 UIU/ML Serum Alcohol < 10 <10 MG/DL Influenza Type A (RT-PCR) Not Detected Not Detecte Influenza Type B (RT-PCR) Not Detected Not Detecte SARS-CoV-2 RNA (RT-PCR) Not Detected Not Detecte My Orders Orders - NOE AVITIA DO Ed Iv/Invasive Line Start (04/13/22 00:09) Ekg Tracing (04/13/22 00:09) O2 (04/13/22 00:09) Monitor-Rhythm Ecg Trace Only (04/13/22 00:) Chest 1 View, Ap/Pa Only (04/13/22 00:09) Bnp Aarti (04/13/22 00:09) Cbc With Automated Diff (04/13/22:) Comprehensive Metabolic Panel (04/13/22:09) Creatine Kinase (04/13/22 00:09) Creatine Kinase Mb (04/13/22 00:09) Hs C Reactive Protein (04/13/22 00:09) Fibrin Degradation Products (04/13/22 00:09) Magnesium (04/13/22 00:09) Protime With Inr (04/13/22:09) Partial Thromboplastin Time (04/13/22 00:09) Thyroid Analyzer (04/13/22 00:09) Erythrocyte Sedimentation Rate (04/13/22 00:09) Myoglobin Serum (04/13/22 00:09) Troponin I [place] (04/13/22 00:09) Ekg Tracing (04/13/22 00:09) O2 (04/13/22 00:09) Ed Iv/Invasive Line Start (04/13/22 00:09) Nitroglycerin 0.4 Mg Btl 25's (Nitrostat (04/13/22 00:15) Alcohol (04/13/22 00:26) Drug Screen Stat (Urine) (04/13/22:26) Ua Culture If Indicated (04/13/22:26) Covid 19 Inhouse Test (04/13/22 00:31) Influenza A And B By Pcr (04/13/22 00:31) Isolation Central Supply Req (04/13/22 00:31) Diltiazem Drip Pre-Mix (Cardizem Drip Pr (04/13/22 00:45) Diltiazem Injection (Cardizem Injection) (04/13/22 00:45) Nitroglycerin Ointment (Nitrobid Ointme (04/13/22 01:30) Medications Given in ED Current Medications Medications Dose Ordered Sig/Willian Route Start Time Stop Time Status Last Admin Dose Admin Diltiazem HCl 20 mg ONCE ONCE IVP 04/13/22 00:45 04/13/22 00:46 DC 04/13/22 00:39 20 MG Nitroglycerin 1 inch ONCE ONCE TOP 04/13/22 01:30 04/13/22 01:31 DC 04/13/22 01:29 1 INCH Vital Signs/I&O 04/13/22 00:11 Temp 36.8 Pulse 140 Resp 20 B/P (MAP) 139/78 (98) Pulse Ox 97 O2 Delivery Room Air Blood Pressure Mean: 98 Progress Progress Note : Progress Note GIVEN IV CARDIZEM BOLUS AND PLACED ON A DRIP. HEART RATE DOWN TO 90-100, BP IS 130'S SYSTOLIC. PT CONTINUES TO C/O CHEST PAIN, DESPITE LOWER HEART RATE. STILL RATES PAIN 8/10. NITROPASTE ORDERED. CHEST PAIN IS BEGINNING TO EASE AT TIME OF ADMIT. NO DETERIORATION IN PT'S CONDITION DURING ER STAY Initial ECG Impression Date: Apr 13, 2022 Initial ECG Impression Time: 00:22 Initial ECG Rate: 134 Initial ECG Rhythm: A Fib/Flutter Initial ECG Impression: Atrial Fibrillation w/RVR EKG : EKG Time: 00:50 Rate: 96 Rhythm: A Fib/Flutter Diagnostic Imaging Comments CXR--BIBASILAR ATELECTASIS, PENDING RADIOLOGIST REVIEW Reviewed: Reviewed by La Departure Communication (Admissions) 124--CALLED DR. JACOBO, HOSPITALIST. MESSAGE LEFT ON CELL. 131--SPOKE WITH DR. JACOBO, ACCEPTS PT FOR ADMIT. 134--SPOKE WITH DR. ROWLAND FOR CARDIOLOGY CONSULT. NO ADDITIONAL RECOMMENDATIONS AT THIS TIME 0206--REPORT TO E-ICU. NO ADDITIONAL RECOMMENDATIONS AT THIS TIME. Impression Primary Impression: Chest pain Additional Impressions: Atrial fibrillation with RVR HTN (hypertension) Disposition: ADMITTED INPATIENT Condition: Improved Admissions Decision to Admit Reason: Admit from ER (General) Decision to Admit/Date: Apr 13, 2022 Time/Decision to Admit Time: 01:35 Departure-Patient Inst. Referrals: JOHN SPENCER (PCP) Primary Care Physician [facility] (Family) Primary Care Physician NOE AVITIA DO Apr 13, 2022 01:31
[2022-04-13 02:08] VITALS: BP 143/97
[2022-04-13] MEDS ORDERED: ONDANSETRON 4 MG/2 ML (SDV) Z0FRAN IVP PRN (02:45)
[2022-04-13] MEDS: fentaNYL INJ 100 MCG/2 ML AMP IV PRN ×3 (02:48→09:53)
[2022-04-13] MEDS: dilTIAZem DRIP PRE-MIX 125 ML IV SCH (03:05)
[2022-04-13] MEDS ORDERED: ENOXAPARIN 80 MG/0.8 ML (LOVENOX) SYR SC ONE (04:00)
[2022-04-13 04:07] LABS: BASOPHILS # (AUTO) 0.1 10^3/uL (0.0-0.1); BASOPHILS % (AUTO) 1 % (0-10); EOSINOPHILS # (AUTO) 0.2 10^3/uL (0.0-0.3); EOSINOPHILS % (AUTO) 2 % (0-10); HEMATOCRIT 42 % (35-52); HEMOGLOBIN 13.4 g/dL (11.5-16.0); LYMPHOCYTES # (AUTO) 3.2 10^3/uL (1.0-4.0); LYMPHOCYTES % (AUTO) 37 % (12-44); MEAN CORPUSCULAR HEMOGLOBIN 29 pg (25-34); MEAN CORPUSCULAR HGB CONC 32 g/dL (32-36); MEAN CORPUSCULAR VOLUME 89 fL (80-99); MEAN PLATELET VOLUME 10.7 fL (9.0-12.2); MONOCYTES # (AUTO) 0.6 10^3/uL (0.0-1.0); MONOCYTES % (AUTO) 7 % (0-12); NEUTROPHILS # (AUTO) 4.5 10^3/uL (1.8-7.8); NEUTROPHILS % (AUTO) 53 % (42-75); PLATELET COUNT 294 10^3/uL (130-400); WHITE BLOOD COUNT 8.6 10^3/uL (4.3-11.0)
[2022-04-13 04:22] LABS: POTASSIUM 3.4 MMOL/L (3.6-5.0)
[2022-04-13 04:23] LABS: ALBUMIN 3.8 GM/DL (3.2-4.5)
[2022-04-13 04:24] LABS: CALCIUM 8.9 MG/DL (8.5-10.1)
[2022-04-13 04:25] LABS: TOTAL PROTEIN 6.6 GM/DL (6.4-8.2)
[2022-04-13 04:27] LABS: BILIRUBIN,TOTAL 0.7 MG/DL (0.1-1.0)
[2022-04-13 04:28] LABS: PHOSPHORUS 3.5 MG/DL (2.3-4.7)
[2022-04-13 04:29] LABS: CREATININE SERUM 0.7 MG/DL (0.60-1.30)
[2022-04-13 04:32] LABS: MAGNESIUM 1.9 MG/DL (1.6-2.4)
[2022-04-13] MEDS: CATHETER FLUSH 10 ML SYR IVP SCH ×3 (04:53→21:14)
[2022-04-13] MEDS: NITROGLYCERIN 2% OINT 1 GM UNIT DOSE PACKET TOP SCH ×2 (05:59→13:11)
--- NOTE | 2022-04-13 06:37 | Diagnostic Imaging Report ---
INDICATION: Chest pain. EXAMINATION: Chest 04/13/2022 COMPARISON: 04/02/2021 FINDINGS: Heart is unremarkable. There is mild pulmonary vascular congestion with minimal bibasilar atelectasis versus early infiltrate. No pneumothorax. IMPRESSION: 1. Possible infiltrate or atelectasis at the bases. 2. Pulmonary vascular congestion. Dictated by: Dictated on workstation # [id number]
[2022-04-13] MEDS ORDERED: CARV6.25 PO (07:37)
[2022-04-13] MEDS: ASPIRIN E.C. 81 MG (ECOTRIN) TAB PO SCH (07:43)
[2022-04-13] MEDS: NITROGLYCERIN 0.4 MG SL TABS BTL 25'S SL PRN ×2 (08:42→09:08)
--- NOTE | 2022-04-13 09:01 | Diagnostic Imaging Report ---
EXAMINATION: Nuclear medicine perfusion scintigraphy HISTORY: Short of breath. COMPARISON: Chest film dated 04/13/2022. FINDINGS: The patient was administered 5.27 mCi of technetium 99m MAA. Multiple projection images were obtained in different obliquities. The comparison chest radiograph shows mild airspace process in the left lung base. No segmental perfusion defect is seen. A few areas of non-anatomic decreased attenuation of the radiotracer is likely due to overlying soft tissues. IMPRESSION: 1. No evidence for pulmonary embolism. Dictated by: Dictated on workstation # [id number]
--- NOTE | 2022-04-13 09:14 | History & Physical-Hospitalist ---
History of Present Illness HPI/Chief Complaint Patient is a 66-year-old past medical history of coronary artery disease, atrial fibrillation, tobacco abuse, hypertension, hypercholesterolemia, hypothyroidism who presented to the emergency department due to chest pounding. She states she was sitting on the couch watching TV and playing with her new puppy when she developed chest pain. She states it was in the center of her chest and radiated to her left shoulder. She took an aspirin and try to wait 30 minutes to see if it would get better but it continued and she felt like her heart was racing. She got nauseous as well but had no vomiting. She was short of breath. She decided to call EMS for evaluation. Upon EMS arrival she was found to be in atrial fibrillation and was brought to the emergency room. Heart rate was in the 140s on arrival and she was placed on a Cardizem drip and admitted to the ICU. She converted to sinus rhythm overnight but reports still having some chest soreness. Source: patient Date Seen 04/13/22 Time Seen by a Provider: 09:11 Attending Physician Edwardo Luis PCP Admitting Physician: Francis Copeland MD Attending Physician: Francis Copeland MD Referring Physician Date of Admission Apr 13, 2022 at 01:35 Home Medications & Allergies Home Medications Reviewed patient Home Medication Reconciliation performed by pharmacy medication reconciliations gi technician and/or nursing. Patients Allergies have been reviewed. Allergies Allergies Coded Allergies morphine (Verified Allergy, Unknown, 09/03/19) tramadol (Verified Allergy, Unknown, 09/03/19) Past Mkqcbmg-Uspcbj-Qghhdw Hx Patient Social History Tobacco Use?: Yes Tobacco type used: Cigarettes Smoking Status: Current Everyday Smoker Substance use?: Yes Substance type: Marijuana Alcohol Use?: No Immunizations Up To Date Date of Influenza Vaccine: Aug 10, 2020 Tetanus Booster (TDap): Unknown Seasonal Allergies Seasonal Allergies: No Current Status Advance Directives: No Communicates: Verbally Primary Language: Occitan Preferred Spoken Language: Occitan Is interpretation needed?: No Past Medical History Surgeries: Abdominal, Appendectomy, Gallbladder, 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, Tubal Ligation Atrial Fibrillation, Coronary Artery Disease, Heart Attack, High Cholesterol, Hypertension 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, 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, Menopausal Gastroesophageal Reflux, Obstructive Bowel, Diverticulosis, Chronic Diarrhea, Esophagitis, Hiatal Hernia, Gall Bladder Disease Degenerate Disk Disease, Rheumatoid Arthritis, Chronic Back Pain Hypothyroidsim Loss of Vision: Denies Hearing Impairment: Denies Blood Disorders: No Family Medical History Diabetes mellitus 19 MOTHER FH: heart disease 19 MOTHER Heart Disease, Cancer, Diabetes SOCIAL HISTORY: -SMOKES 1/2-1 PPD -SMOKES MARIJUANA ON REGULAR BASIS -DENIES ETOH USE PAST SURGICAL HISTORY: -APPENDECTOMY -CHOLECYSTECTOMY -BILATERAL TUBAL LIGATION -HYSTERECTOMY/OVARIES INTACT -LAPAROSCOPY 15 YEARS AGO FOR SMALL BOWEL OBSTRUCTION WITH LYSIS OF ADHESIONS -EGD 01/03/[address] GARRIDO -DX HIATAL HERNIA, ESOPHAGITIS. STRESS TEST 12/31/[address] GRIJALVA: CONCLUSIONS: 1. This study suggests a minimal amount of apical ischemia. 2. Normal regional wall motion. 3. Normal global left ventricular systolic function with ejection fraction of 72%. Review of Systems Constitutional: No chills, No fever EENTM: no symptoms reported Respiratory: No orthopnea; short of breath; No wheezing Cardiovascular: chest pain; No edema; Hx of Intervention, palpitations Gastrointestinal: No abdominal pain, No loss of appetite; nausea; No vomiting Genitourinary: no symptoms reported Musculoskeletal: back pain (chronic sciatic pain) Skin: no symptoms reported Psychiatric/Neurological: No Symptoms Reported Physical Exam Physical Exam Vital Signs Vital Signs - First Documented 04/13/22 00:11 Temp 36.8 Pulse 140 Resp 20 B/P (MAP) 139/78 (98) Pulse Ox 97 O2 Delivery Room Air Capillary Refill : Less Than 3 Seconds Height, Weight, BMI Height: '" Weight: lbs. oz. kg; 38.38 BMI Method: General Appearance: No Apparent Distress, Chronically ill, Obese HEENT: PERRL/EOMI, Moist Mucous Membranes; No Scleral Icterus (L), No Scleral Icterus (R) Neck: Normal Inspection, Supple Respiratory: Lungs Clear, No Accessory Muscle Use, No Respiratory Distress Cardiovascular: Regular Rate, Rhythm, No JVD, No Murmur Gastrointestinal: Normal Bowel Sounds, Non Tender, Soft Extremity: Normal Capillary Refill, No Calf Tenderness, No Pedal Edema Neurologic/Psychiatric: Alert, Oriented x3, Normal Mood/Affect; No Aphasia, No Facial Droop Skin: Normal Color, Warm/Dry Results Results/Procedures Labs Laboratory Tests 04/13/22 00:28 04/13/22 03:37 Patient resulted labs reviewed. Imaging: Reviewed Imaging Report Imaging [facility] [place] NAME: YUMI SQUIRES [facility] REC#: [id number] PT STATUS: ADM IN : 04/17/1955 PHYSICIAN: NOE AVITIA DO ADMIT DATE: 04/13/22/ICU Draft Date of Exam:04/13/22 CHEST 1 VIEW, AP/PA ONLY INDICATION: Chest pain. EXAMINATION: Chest 04/13/2022 COMPARISON: 04/02/2021 FINDINGS: Heart is unremarkable. There is mild pulmonary vascular congestion with minimal bibasilar atelectasis versus early infiltrate. No pneumothorax. IMPRESSION: 1. Possible infiltrate or atelectasis at the bases. 2. Pulmonary vascular congestion. Dictated on workstation # [id number] Dict: 04/13/22621 Trans: 04/13/22636 CVB [id number] Interpreted by: GUSTAVO MARTINEZ MD Electronically signed by: [facility] [place] NAME: YUMI SQUIRES [facility] REC#: [id number] PT STATUS: ADM IN : 04/17/1955 PHYSICIAN: NIKKI PRAKASH MD ADMIT DATE: 04/13/22/ICU Draft Date of Exam:04/13/22 LUNG SCAN V AND P (VQ) EXAMINATION: Nuclear medicine perfusion scintigraphy HISTORY: Short of breath. COMPARISON: Chest film dated 04/13/2022. FINDINGS: The patient was administered 5.27 mCi of technetium 99m MAA. Multiple projection images were obtained in different obliquities. The comparison chest radiograph shows mild airspace process in the left lung base. No segmental perfusion defect is seen. A few areas of non-anatomic decreased attenuation of the radiotracer is likely due to overlying soft tissues. IMPRESSION: 1. No evidence for pulmonary embolism. Dictated on workstation # [id number] Dict: 04/13/22855 Trans: 04/13/22 09 CVB [id number] Interpreted by: ALAYNA PRESLEY MD Electronically signed by: Assessment/Plan Admission Diagnosis A-fib with RVR Admission Status: Inpatient Order (span 2 midnights) Reason for Inpatient Admission: see below Assessment and Plan A-fib with RVR HTN HLD CAD rate of 140 on arrival but now converted to sinus rhythm Off cardizem gtt Troponin negative x3 Cardiology consulted, appreciate recs Telemetry Resume home meds Sciatica Neuropathy Continue home meds DVT ppx: Already on Xarelto Diagnosis/Problems Diagnosis/Problems (1) Obesity (2) Tobacco abuse (3) CAD (coronary artery disease) Status: Chronic (4) Hypertension Status: Chronic (5) Chronic pain Status: Chronic (6) Lumbar back pain with radiculopathy affecting right lower extremity Status: Acute (7) DVT prophylaxis Status: Acute (8) Atrial fibrillation with RVR Status: Acute Clinical Quality Measures AMI/AHF: ASA po Prior to arrival: Yes FRANCIS COPELAND MD Apr 13, 2022 09:14
[2022-04-13] MEDS ORDERED: HYDROcodone/APAP 7.5 MG/325 MG (LORTAB, LORCET PLUS) TABLET PO PRN (09:30)
[2022-04-13] MEDS ORDERED: KCL 20 MEQ TAB (K-DUR) PO ONE (09:45)
[2022-04-13] MEDS ORDERED: LIDOCAINE 1% INJ 20 ML VIAL ONE (10:22)
[2022-04-13] MEDS ORDERED: HEParin (CATH LAB) 2,000 ML IV ONE (10:22)
--- NOTE | 2022-04-13 10:46 | Tele-ICU Progress Note ---
Subjective Date Seen by a Provider: Apr 13, 2022 Time Seen by a Provider: 10:00 Subjective/Events-last exam This virtual visit was conducted using real time audio/video. Thank you for asking us to see this patient for afib/rvr Recent events: Converted to NSR approx 04:30 04/13/22. Chest pains overnight. PE: VSS. NSR. O2 sat 99% on RA. HEENT: No obvious masses, adenopathy or JVD. Chest: clear to auscultation. CV: RRR S1 S2 No murmur or added sounds. Abd: Non-tender. Bowel sounds Y. : Unremarkable. 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 No obvious focal findings. Extremities: No edema. Capillary refill < 3 seconds. Skin: unremarkable. Results: Decreased K 3.4. CXR: congested. Available chart/ vitals / labs / images reviewed. Video assessment done using teleICU camera, rest of exam as per RN. A/P: Critical Care: critically ill patient. Cont. Dilt., ASA, nitrobid. To go to [facility] later today. Discussed with RN Lu. Asked RN to reach out to eICU if any questions or concerns later. Time spent with patient/coordination of care with other health professionals (mins): 32 Sepsis Event Evaluation Height, Weight, BMI Height: '" Weight: lbs. oz. kg; 38.38 BMI Method: Exam Exam Patient acknowledged, consented, and participated in this virtual visit which was conducted using real time audio/video Vital Signs Date Time Temp Pulse Resp B/P (MAP) Pulse Ox O2 Delivery O2 Flow Rate FiO2 04/13/22 10:00 53 27 144/68 97 Room Air 04/13/22 09:00 57 25 137/87 100 Room Air 04/13/22 08:00 56 22 129/67 97 Room Air 04/13/22 07:46 36.0 Room Air 04/13/22 07:15 117/75 04/13/22 07:00 60 04/13/22 07:00 28 92/57 99 04/13/22 06:45 55 26 124/74 98 04/13/22 06:30 61 32 145/93 96 04/13/22 06:00 67 26 125/79 97 Room Air 04/13/22 04:15 52 23 127/74 95 Room Air 04/13/22 03:45 55 28 119/71 96 Room Air 04/13/22 03:15 87 24 152/98 97 Room Air 04/13/22 03:00 99 16 160/99 98 Room Air 04/13/22 02:45 101 15 111/91 98 Room Air 04/13/22 02:41 116 04/13/22 02:30 105 15 150/104 98 Room Air 04/13/22 02:30 36.2 92 22 110/90 96 Room Air 04/13/22 02:08 36.8 82 18 143/97 97 Room Air 04/13/22 00:11 36.8 140 20 139/78 (98) 97 Room Air I & O 04/13/22 07:00 Intake Total 10 ml Balance 10 ml Height & Weight Height: '" Weight: lbs. oz. kg; 38.38 BMI Method: General Appearance: No Apparent Distress, Chronically ill, Obese HEENT: PERRL/EOMI, Moist Mucous Membranes; No Scleral Icterus (L), No Scleral Icterus (R) Neck: Normal Inspection, Supple Respiratory: Lungs Clear, No Accessory Muscle Use, No Respiratory Distress Cardiovascular: Regular Rate, Rhythm, No JVD, No Murmur Capillary Refill: Less Than 3 Seconds Extremity: Normal Capillary Refill, No Calf Tenderness, No Pedal Edema Neurologic/Psychiatric: Alert, Oriented x3, Normal Mood/Affect; No Aphasia, No Facial Droop Skin: Normal Color, Warm/Dry Results Lab Laboratory Tests 04/13/22 00:28 04/13/22 03:37 Assessment/Plan Assessment/Plan See free text. Critical Care: Critically Ill Patient UMA SHEPHERD MD Apr 13, 2022 10:46
[2022-04-13] MEDS ORDERED: HEParin 1000 UNIT/ML (10ML VIAL) FOR BOLUS ONE (11:20)
[2022-04-13] MEDS ORDERED: fentaNYL INJ 100 MCG/2 ML AMP ONE (11:20)
[2022-04-13] MEDS ORDERED: VERAPAMIL 5 MG/2 ML (CALAN) VIAL IV ONE (11:20)
[2022-04-13] MEDS ORDERED: NITRO DRIP 25000 MCG/D5W 250 ML IV ONE (11:20)
[2022-04-13] MEDS ORDERED: MIDAZOLAM 5 MG/5 ML (VERSED) VIAL ONE (11:20)
--- NOTE | 2022-04-13 11:39 | Consultation-Cardiology ---
HPI-Cardiology Cardiology Consultation Date of Consultation 04/13/22 Date of Admission Time Seen by Provider: 09:00 Indication: Chest pain HPI 66-year-old lady with history of coronary artery disease, tobaccoism, hypertension and hyperlipidemia. Admitted through the emergency room with palpitation where she felt her heart is pounding and she had chest pain. Described it as dull in nature in the retrosternal area radiating to the left shoulder. Patient took aspirin and waited without relief. Came into the emergency room and she was noted to be in atrial fibrillation with rapid ventricular response. She was started on Cardizem drip. Patient has converted to sinus rhythm and has been doing well with a heart rate. She is still having active chest pain described as dull in nature in the retrosternal radiating to the left side she has a nitroglycerin patch and still having active chest pain. Cardiac enzymes were negative. Home Medications & Allergies Allergies: Coded Allergies: morphine (Verified Allergy, Unknown, 09/03/19) tramadol (Verified Allergy, Unknown, 09/03/19) Home Medication List Reviewed: Yes OMX-[id number]-[place] Hx Patient Social History Marital Status: Employed/Student: employed Smoking Status: Current Everyday Smoker Type Used: Cigarettes Recent Hopitalizations: No Have you traveled recently?: No Alcohol Use?: No Substance type: Marijuana Immunizations Up To Date Tetanus Booster (TDap): Unknown Date of Influenza Vaccine: Aug 10, 2020 Past Medical History Discussed below Family Medical History Significant Family History: Heart Disease, Cancer, Diabetes Family History: Diabetes mellitus 19 MOTHER FH: heart disease 19 MOTHER Review of Systems-General Review of Systems Constitutional: see HPI; No chills, No fever EENTM: see HPI, no symptoms reported Respiratory: see HPI; No cough, No dyspnea on exertion, No hemoptysis, No orthopnea, No phlegm; short of breath; No stridor, No wheezing, No other Cardiovascular: see HPI, chest pain; No edema; Hx of Intervention, palpitations Gastrointestinal: see HPI; No abdominal pain, No loss of appetite; nausea; No vomiting Genitourinary: no symptoms reported, see HPI Musculoskeletal: see HPI, back pain (chronic sciatic pain) Skin: no symptoms reported, see HPI Psychiatric/Neurological: No Symptoms Reported, See HPI Reviewed Test Results Reviewed Test Results Lab Laboratory Tests Test 04/13/22 00:20 04/13/22 00:28 04/13/22 03:37 04/13/22 06:40 Range/Units Urine Color YELLOW Urine Clarity CLEAR Urine pH 6.0 5-9 Urine Specific [place] <=1.005 1.016-1.022 Urine Protein NEGATIVE NEGATIVE Urine Glucose (UA) NEGATIVE NEGATIVE Urine Ketones NEGATIVE NEGATIVE Urine Nitrite NEGATIVE NEGATIVE Urine Bilirubin NEGATIVE NEGATIVE Urine Urobilinogen 0.2 < = 1.0 MG/DL Urine Leukocyte Esterase NEGATIVE NEGATIVE Urine RBC (Auto) TRACE-I H NEGATIVE Urine RBC 0-2 /HPF Urine WBC 0-2 /HPF Urine Squamous Epithelial Cells RARE /HPF Urine Crystals NONE /LPF Urine Bacteria NEGATIVE /HPF Urine Casts NONE /LPF Urine Mucus NEGATIVE /LPF Urine Culture Indicated NO Urine Opiates Screen POSITIVE H NEGATIVE Urine Oxycodone Screen NEGATIVE NEGATIVE Urine Methadone Screen NEGATIVE NEGATIVE Urine Propoxyphene Screen NEGATIVE NEGATIVE Urine Barbiturates Screen NEGATIVE NEGATIVE Ur Tricyclic Antidepressants Screen NEGATIVE NEGATIVE Urine Phencyclidine Screen NEGATIVE NEGATIVE Urine Amphetamines Screen NEGATIVE NEGATIVE Urine Methamphetamines Screen NEGATIVE NEGATIVE Urine Benzodiazepines Screen NEGATIVE NEGATIVE Urine Cocaine Screen NEGATIVE NEGATIVE Urine Cannabinoids Screen POSITIVE H NEGATIVE White Blood Count 10.3 8.6 4.3-11.0 10^3/uL Red Blood Count 4.72 4.66 3.80-5.11 10^6/uL Hemoglobin 13.8 13.4 11.5-16.0 g/dL Hematocrit 42 42 35-52 % Mean Corpuscular Volume 89 89 80-99 fL Mean Corpuscular Hemoglobin 29 29 25-34 pg Mean Corpuscular Hemoglobin Concent 33 32 32-36 g/dL Red Cell Distribution Width 15.9 H 16.2 H 10.0-14.5 % Platelet Count 317 294 130-400 10^3/uL Mean Platelet Volume 10.3 10.7 9.0-12.2 fL Immature Granulocyte % (Auto) 0 0 % Neutrophils (%) (Auto) 56 53 42-75 % Lymphocytes (%) (Auto) 34 37 12-44 % Monocytes (%) (Auto) 7 7 0-12 % Eosinophils (%) (Auto) 2 2 0-10 % Basophils (%) (Auto) 1 1 0-10 % Neutrophils # (Auto) 5.8 4.5 1.8-7.8 10^3/uL Lymphocytes # (Auto) 3.5 3.2 1.0-4.0 10^3/uL Monocytes # (Auto) 0.7 0.6 0.0-1.0 10^3/uL Eosinophils # (Auto) 0.2 0.2 0.0-0.3 10^3/uL Basophils # (Auto) 0.1 0.1 0.0-0.1 10^3/uL Immature Granulocyte # (Auto) 0.0 0.0 0.0-0.1 10^3/uL Erythrocyte Sedimentation Rate 17 0-30 MM/HR Prothrombin Time 19.9 H 12.2-14.7 SEC INR Comment 1.6 H 0.8-1.4 Activated Partial Thromboplast Time 46 H 24-35 SEC D-Dimer 0.11 0.00-0.49 UG/ML Sodium Level 144 141 135-145 MMOL/L Potassium Level 3.5 L 3.4 L 3.6-5.0 MMOL/L Chloride Level 109 H 107 98-107 MMOL/L Carbon Dioxide Level 21 22 21-32 MMOL/L Anion Gap 14 12 5-14 MMOL/L Blood Urea Nitrogen 6 L 6 L 7-18 MG/DL Creatinine 0.72 0.70 0.60-1.30 MG/DL Estimat Glomerular Filtration Rate 93 97 BUN/Creatinine Ratio 8 9 Glucose Level 108 H 123 H 70-105 MG/DL Calcium Level 9.3 8.9 8.5-10.1 MG/DL Corrected Calcium 9.4 9.1 8.5-10.1 MG/DL Magnesium Level 2.0 1.9 1.6-2.4 MG/DL Total Bilirubin 0.8 0.7 0.1-1.0 MG/DL Aspartate Amino Transf (AST/SGOT) 14 13 5-34 U/L Alanine Aminotransferase (ALT/SGPT) 10 9 0-55 U/L Alkaline Phosphatase 106 101 40-136 U/L Total Creatine Kinase 81 29-168 U/L Creatine Kinase MB 1.2 <6.6 NG/ML Myoglobin 49.1 10.0-92.0 NG/ML Troponin I < 0.028 0.028 < 0.028 <0.028 NG/ML C-Reactive Protein High Sensitivity 0.56 H 0.00-0.50 MG/DL B-Type Natriuretic Peptide 61.6 <100.0 PG/ML Total Protein 7.0 6.6 6.4-8.2 GM/DL Albumin 3.9 3.8 3.2-4.5 GM/DL TSH [place] Testing 1.28 0.35-4.94 UIU/ML Serum Alcohol < 10 <10 MG/DL Influenza Type A (RT-PCR) Not Detected Not Detecte Influenza Type B (RT-PCR) Not Detected Not Detecte SARS-CoV-2 RNA (RT-PCR) Not Detected Not Detecte Phosphorus Level 3.5 2.3-4.7 MG/DL Triglycerides Level 62 <150 MG/DL Cholesterol Level 104 < 200 MG/DL LDL Cholesterol Direct 41 1-129 MG/DL VLDL Cholesterol 12 5-40 MG/DL HDL Cholesterol 43 40-60 MG/DL Physical Exam Physical Exam Vital Signs Vital Signs - First Documented 04/13/22 00:11 Temp 36.8 Pulse 140 Resp 20 B/P (MAP) 139/78 (98) Pulse Ox 97 O2 Delivery Room Air Capillary Refill : Less Than 3 Seconds Height, Weight, BMI Height: '" Weight: lbs. oz. kg; 38.38 BMI Method: General Appearance: No Apparent Distress, Chronically ill, Obese Eyes: Bilateral Eye Normal Inspection, Bilateral Eye PERRL, Bilateral Eye EOMI HEENT: PERRL/EOMI, Moist Mucous Membranes; No Scleral Icterus (L), No Scleral Icterus (R) Neck: Normal Inspection, Supple Respiratory: Lungs Clear, No Accessory Muscle Use, No Respiratory Distress Cardiovascular: Regular Rate, Rhythm, No JVD, No Murmur, Systolic Murmur Gastrointestinal: Normal Bowel Sounds, Non Tender, Soft Back: Normal Inspection, No CVA Tenderness, No Vertebral Tenderness Extremity: Normal Capillary Refill, No Calf Tenderness, No Pedal Edema Neurologic/Psychiatric: Alert, Oriented x3, Normal Mood/Affect; No Aphasia, No Facial Droop Skin: Normal Color, Warm/Dry Lymphatic: No Adenopathy A/P-Cardiology Admission Diagnosis Chest pain Coronary artery disease Paroxysmal atrial fibrillation Hypertension Assessment/Plan Chest pain nonspecific etiology. Patient is still having active chest pain typical in presentation Reporting slight relieved with the nitroglycerin but still having active chest pain. EKG and cardiac enzymes did not show any acute abnormality. I will proceed with cardiac catheterization and evaluate her coronary anatomy. Coronary artery disease. Patient reporting that she had 2 small heart attacks in the remote past. Did not have any cardiac catheterization done in the past. Had a stress test done in December [address] Lopez reported minimal amount of apical ischemia with normal ejection fraction 72%. Planning to proceed with cardiac catheterization. Paroxysmal atrial fibrillation. Patient converted to sinus rhythm on Cardizem. History of paroxysmal atrial fibrillation first diagnosed at [facility] in [place] in October 2018. Post cardiac catheterization we will decide on antiarrhythmic medication. [id number] score 5, maintained on Xarelto History of Bernardo's palsy on the left side in April 2019. Resolved spontaneously. History of mild bilateral carotid stenosis, ultrasound was done in October 2019. Continue to monitor Hypertension, continue to monitor blood pressure Questionable underlying sleep apnea Morbid obesity, BMI 38. Clinical Quality Measures AMI/AHF: ASA po Prior to arrival: Yes TALIA ROWLAND MD Apr 13, 2022 11:39
--- NOTE | 2022-04-13 11:40 | Conscious Sedation/ASA ---
Conscious Sedation Pre-Proced Time 11:39 ASA Score 3 For ASA 3 and 4: Consider anesthesia and medical clearance. Also, for patients with a history of failed moderate sedation consider anesthesia. Airway Lungs Heart ASA score ASA 1: a normal healthy patient ASA 2: a patient with a mild systemic disease (mid diabetes, controlled hypertension, obesity x ASA 3: a patient with a severe systemic disease that limits activity (angina, COPD, prior Myocardial infarction) ASA 4: a patient with an incapacitating disease that is a constant threat to life (CHF, renal failure) ASA 5: a moribund patient not expected to survive 24 hrs. (ruptured aneurysm) ASA 6: a declared brain- patient whose organs are being harvested. For emergent operations, add the letter E after the classification Mallampati Classification Grade 3 Sedation Plan Analgesia, Amnesia, Plan communicated to team members, Discussed options with patient/fam, Discussed risks with patient/fam The patient is an appropriate candidate to undergo the planned procedure, sedation, and anesthesia. The patient immediately re-assessed prior to indication. TALIA ROWLAND MD Apr 13, 2022 11:39
--- NOTE | 2022-04-13 12:20 | Cardiac Cath Report ---
Cardiac Cath Report Physician (s)/Fish Bin Tender (s) Physician TALIA ROWLAND MD Pre-Procedure Diagnosis Pre-Procedure Diagnosis: Chest pain Post-Procedure Note Procedure Start Date: Apr 13, 2022 Name of Procedure: Left heart catheterization Aortic arch angiogram Findings/Procedure Note PROCEDURE NOTE: 66-year-old lady with history of hypertension paroxysmal atrial fibrillation and questionable coronary artery disease reporting that she had 2 small heart attacks in the remote past but did not have a heart catheterization done. Continue to have active chest pain scheduled for cardiac catheterization. After explaining the procedure to the patient, all pros and cons were explained, all questions were answered. The patient signed the consent and then she was placed on the cardiac catheterization laboratory. Groin was prepped SL fashion local anesthesia was used. Sheath placed in the right radial artery, [place] catheter was advanced with difficulty across the arch to the left ventricular cavity, pressure was measured. I had significant difficulty passing the wire through the arch. Then pullback LV to aorta was done and I engaged the right and left coronaries and angiogram was done then I pulled the catheter back to the aortic arch and aortic arch angiogram was done. At the end of the procedure the sheath was removed. Vascular band was used FINDINGS: Hemodynamics LV 104/12, end-diastolic pressure of 12 Aorta 105/55 mean of 75 ANATOMY: Left Main is free of obstructive disease Left Anterior Descending is slightly tortuous with mild to moderate disease at the midportion nonobstructive disease Left Circumflex has mild disease nonobstructive disease Right Coronary Artery is dominant artery, slightly tortuous with mild disease nonobstructive disease LV Gram was not done, pressure was measured Aorta evaluation done with aortic arch angiogram showed prominent aortic arch, slightly aneurysmal and tortuous brachiocephalic artery, slightly prominent. No obstructive disease, tortuous left carotid and left subclavian artery with no obstructive disease CONCLUSION: 1. Mild to moderate coronary artery disease at the mid LAD nonobstructive disease with tortuous coronary system. 2. Normal left ventricular end-diastolic pressure 3. Prominent aortic arch with hypertensive changes and tortuosity in the neck arteries DISCUSSION AND RECOMMENDATION: Patient had prominent aortic arch, she has been having chest pain and appears to have significant hypertensive changes in her coronaries and in her neck artery in addition to the prominent aorta, we will continue with aggressive beta blockers and monitoring her blood pressure closely. We will consider doing CT angiogram as an outpatient and following up as an outpatient. Anesthesia Type: Conscious Sedation Estimated blood loss (mL): 10 ml Contrast Amount: 40 ml Total Radiation Dose: 483 mGy Post-Procedure Diagnosis Post-operative diagnosis: Chest pain Paroxysmal atrial fibrillation Coronary artery disease Hypertension TALIA ROWLAND MD Apr 13, 2022 12:20
[2022-04-13] MEDS: NS IV 1000 ML 1,000 ML IV SCH (13:07)
[2022-04-13] MEDS: GABAPENTIN 300 MG (NEURONTIN) CAP PO SCH ×2 (13:11→21:14)
[2022-04-14 05:03] LABS: ALBUMIN 3.4 GM/DL (3.2-4.5); BASOPHILS % (AUTO) 1 % (0-10); EOSINOPHILS # (AUTO) 0.2 10^3/uL (0.0-0.3); EOSINOPHILS % (AUTO) 4 % (0-10); HEMATOCRIT 39 % (35-52); HEMOGLOBIN 12.1 g/dL (11.5-16.0); LYMPHOCYTES # (AUTO) 2.9 10^3/uL (1.0-4.0); LYMPHOCYTES % (AUTO) 57 % (12-44); MEAN CORPUSCULAR HEMOGLOBIN 29 pg (25-34); MEAN CORPUSCULAR HGB CONC 31 g/dL (32-36); MEAN CORPUSCULAR VOLUME 92 fL (80-99); MEAN PLATELET VOLUME 10.5 fL (9.0-12.2); MONOCYTES # (AUTO) 0.4 10^3/uL (0.0-1.0); MONOCYTES % (AUTO) 8 % (0-12); NEUTROPHILS # (AUTO) 1.6 10^3/uL (1.8-7.8); NEUTROPHILS % (AUTO) 31 % (42-75); PLATELET COUNT 234 10^3/uL (130-400); POTASSIUM 4.4 MMOL/L (3.6-5.0); WHITE BLOOD COUNT 5.1 10^3/uL (4.3-11.0)
[2022-04-14 05:04] LABS: CALCIUM 8.6 MG/DL (8.5-10.1)
[2022-04-14 05:05] LABS: TOTAL PROTEIN 6.1 GM/DL (6.4-8.2)
[2022-04-14 05:07] LABS: BILIRUBIN,TOTAL 0.8 MG/DL (0.1-1.0)
[2022-04-14 05:08] LABS: PHOSPHORUS 3.3 MG/DL (2.3-4.7)
[2022-04-14 05:09] LABS: CREATININE SERUM 0.71 MG/DL (0.60-1.30)
[2022-04-14 05:11] LABS: MAGNESIUM 1.9 MG/DL (1.6-2.4)
[2022-04-14] MEDS ORDERED: MAGNESIUM 1 GM/100 ML IVPB 100 ML IV SCH (06:00)
[2022-04-14] MEDS ORDERED: KCL 20 MEQ TAB (K-DUR) PO SCH (06:00)
[2022-04-14] MEDS ORDERED: POTASSIUM CL 10MEQ/50ML IVPB 50 ML IV SCH (06:00)
[2022-04-14] MEDS: dilTIAZem DRIP PRE-MIX 125 ML IV SCH (07:25)
[2022-04-14] MEDS: NS IV 1000 ML 1,000 ML IV SCH ×2 (07:26→08:14)
[2022-04-14] MEDS: GABAPENTIN 300 MG (NEURONTIN) CAP PO SCH (08:14)
[2022-04-14] MEDS: ASPIRIN E.C. 81 MG (ECOTRIN) TAB PO SCH (08:14)
[2022-04-14] MEDS: CATHETER FLUSH 10 ML SYR IVP SCH (08:15)
[2022-04-14] MEDS ORDERED: LOSARTAN 25 MG (COZAAR) TAB PO SCH (09:00)
[2022-04-14] MEDS ORDERED: ISOSORBIDE MONONITRATE 30 MG (IMDUR) TAB PO SCH (09:00)
[2022-04-14] MEDS ORDERED: RIVAROXABAN 20 MG TABLET (XARELTO) PO SCH (09:00)
[2022-04-14] MEDS ORDERED: PANTOPRAZOLE 20 MG TABLET (PROTONIX) PO SCH (09:00)
[2022-04-14] MEDS ORDERED: DULoxetine 30 MG (CYMBALTA) CAP PO SCH (09:00)
[2022-04-14] MEDS ORDERED: ROSUVASTATIN 5 MG (CRESTOR) TABLET PO SCH (09:00)
[2022-04-14] MEDS ORDERED: LOSA25TA41 PO (09:54)
--- NOTE | 2022-04-14 09:54 | Discharge Inst-Simple/Standard ---
Discharge Inst-Standard Patient Instructions/Follow Up Plan of Care/Instructions/FU: Please continue to take your medications as written. Please follow up with your primary care doctor to follow up this hospital stay. Activity as Tolerated: Yes Discharge Diet: Cardiac Diet Return to The Hospital For: Chest pain, shortness of breath, fever, weakness, if you feel you are getting worse. FRANCIS JACOBO MD Apr 14, 2022 09:54
--- NOTE | 2022-04-14 09:55 | Discharge Summary ---
Diagnosis/Chief Complaint Date of Admission Apr 13, 2022 at 01:35 Date of Discharge Discharge Date: Apr 14, 2022 Admission Diagnosis A-fib with RVR [facility] Discharge Diagnosis (1) Obesity (2) Tobacco abuse (3) CAD (coronary artery disease) Status: Chronic (4) Hypertension Status: Chronic (5) Chronic pain Status: Chronic (6) Lumbar back pain with radiculopathy affecting right lower extremity Status: Acute (7) DVT prophylaxis Status: Acute (8) Atrial fibrillation with RVR Status: Acute Discharge Summary Discharge Physical Exam Allergies: Coded Allergies: morphine (Verified Allergy, Unknown, 09/03/19) tramadol (Verified Allergy, Unknown, 09/03/19) Vitals & I&Os Vital Signs Date Time Temp Pulse Resp B/P (MAP) Pulse Ox O2 Delivery O2 Flow Rate FiO2 04/14/22 09:00 51 14 139/67 97 Room Air 04/14/22 08:00 35.6 Hospital Course Labs (last 24 hrs) Laboratory Tests 04/14/22 04:17: White Blood Count 5.1, Red Blood Count 4.21, Hemoglobin 12.1, Hematocrit 39, Mean Corpuscular Volume 92, Mean Corpuscular Hemoglobin 29, Mean Corpuscular Hemoglobin Concent 31L, Red Cell Distribution Width 16.7H, Platelet Count 234, Mean Platelet Volume 10.5, Immature Granulocyte % (Auto) 0, Neutrophils (%) (Auto) 31L, Lymphocytes (%) (Auto) 57H, Monocytes (%) (Auto) 8, Eosinophils (%) (Auto) 4, Basophils (%) (Auto) 1, Neutrophils # (Auto) 1.6L, Lymphocytes # (Auto) 2.9, Monocytes # (Auto) 0.4, Eosinophils # (Auto) 0.2, Basophils # (Auto) 0.0, Immature Granulocyte # (Auto) 0.0, Sodium Level 139, Potassium Level 4.4, Chloride Level 109H, Carbon Dioxide Level 19L, Anion Gap 11, Blood Urea Nitrogen 9, Creatinine 0.71, Estimat Glomerular Filtration Rate 95, BUN/Creatinine Ratio 13, Glucose Level 93, Calcium Level 8.6, Corrected Calcium 9.1, Phosphorus Level 3.3, Magnesium Level 1.9, Total Bilirubin 0.8, Aspartate Amino Transf (AST/SGOT) 14, Alanine Aminotransferase (ALT/SGPT) 9, Alkaline Phosphatase 87, Total Protein 6.1L, Albumin 3.4 Microbiology 04/13/22 MRSA Screen - Final, Complete MRSA not isolated Patient resulted labs reviewed. Pending Labs Laboratory Tests 04/14/22 04:17: White Blood Count 5.1, Red Blood Count 4.21, Hemoglobin 12.1, Hematocrit 39, Mean Corpuscular Volume 92, Mean Corpuscular Hemoglobin 29, Mean Corpuscular Hemoglobin Concent 31, Red Cell Distribution Width 16.7, Platelet Count 234, Mean Platelet Volume 10.5, Immature Granulocyte % (Auto) 0, Neutrophils (%) (Auto) 31, Lymphocytes (%) (Auto) 57, Monocytes (%) (Auto) 8, Eosinophils (%) (Auto) 4, Basophils (%) (Auto) 1, Neutrophils # (Auto) 1.6, Lymphocytes # (Auto) 2.9, Monocytes # (Auto) 0.4, Eosinophils # (Auto) 0.2, Basophils # (Auto) 0.0, Immature Granulocyte # (Auto) 0.0, Sodium Level 139, Potassium Level 4.4, Chlori de Level 109, Carbon Dioxide Level 19, Anion Gap 11, Blood Urea Nitrogen 9, Creatinine 0.71, Estimat Glomerular Filtration Rate 95, BUN/Creatinine Ratio 13, Glucose Level 93, Calcium Level 8.6, Corrected Calcium 9.1, Phosphorus Level 3.3, Magnesium Level 1.9, Total Bilirubin 0.8, Aspartate Amino Transf (AST/SGOT) 14, Alanine Aminotransferase (ALT/SGPT) 9, Alkaline Phosphatase 87, Total Protein 6.1, Albumin 3.4 Imaging: Reviewed Imaging Report Discharge Home Medications: Active Scripts Active Losartan Potassium 25 Mg Tablet 25 Mg PO DAILY Reported Coreg (Carvedilol) 6.25 Mg Tablet 6.25 Mg PO BID Duloxetine HCl 60 Mg Capsule.dr 60 Mg PO DAILY Pantoprazole Sodium 20 Mg Tablet.dr 20 Mg PO DAILY Aspirin EC (Aspirin) 81 Mg Tablet.dr 81 Mg PO DAILY Gabapentin 300 Mg Capsule 300 Mg PO TID HYDROcodone/APAP 7.5/325 TAB (Acetaminophen/Hydrocodone Bitart) 1 Each Tablet 1 Tab PO Q6H PRN 7 Days Isosorbide Mononitrate ER (Isosorbide Mononitrate) 30 Mg Tab.er.24h 30 Mg PO DAILY Rosuvastatin Calcium 5 Mg Tablet 5 Mg PO DAILY Xarelto (Rivaroxaban) 20 Mg Tablet 20 Mg PO DAILY Instructions to patient/family Please see electronic discharge instructions given to patient. Clinical Quality Measures AMI/AHF: ASA po Prior to arrival: Yes FRANCIS JACOBO MD Apr 14, 2022 09:55
--- NOTE | 2022-04-14 09:56 | Tele-ICU Progress Note ---
Progress Note video rounds completed 66 y/o f with afib on xarelto cardiology following Had cardiac cath which showed hypertensive aorta and coronaries On beta blockers and dilt drip PE:comfortable in bed HR 60s NSR PLANs; as per cardiology Focused Exam Height, Weight, BMI Height: '" Weight: lbs. oz. kg; 38.38 BMI Method: Laboratory Tests 04/14/22 04:17 Results Labs Labs Laboratory Tests 04/14/22 04:17: White Blood Count 5.1, Red Blood Count 4.21, Hemoglobin 12.1, Hematocrit 39, Mean Corpuscular Volume 92, Mean Corpuscular Hemoglobin 29, Mean Corpuscular Hemoglobin Concent 31L, Red Cell Distribution Width 16.7H, Platelet Count 234, Mean Platelet Volume 10.5, Immature Granulocyte % (Auto) 0, Neutrophils (%) (Auto) 31L, Lymphocytes (%) (Auto) 57H, Monocytes (%) (Auto) 8, Eosinophils (%) (Auto) 4, Basophils (%) (Auto) 1, Neutrophils # (Auto) 1.6L, Lymphocytes # (Auto ) 2.9, Monocytes # (Auto) 0.4, Eosinophils # (Auto) 0.2, Basophils # (Auto) 0.0, Immature Granulocyte # (Auto) 0.0, Sodium Level 139, Potassium Level 4.4, Chloride Level 109H, Carbon Dioxide Level 19L, Anion Gap 11, Blood Urea Nitrogen 9, Creatinine 0.71, Estimat Glomerular Filtration Rate 95, BUN/Creatinine Ratio 13, Glucose Level 93, Calcium Level 8.6, Corrected Calcium 9.1, Phosphorus Level 3.3, Magnesium Level 1.9, Total Bilirubin 0.8, Aspartate Amino Transf (AST/SGOT) 14, Alanine Aminotransferase (ALT/SGPT) 9, Alkaline Phosphatase 87, Total Protein 6.1L, Albumin 3.4 Microbiology 04/13/22 MRSA Screen - Final, Complete MRSA not isolated Lab results: Laboratory Tests Test 04/14/22 04:17 Range/Units White Blood Count 5.1 4.3-11.0 10^3/uL Red Blood Count 4.21 3.80-5.11 10^6/uL Hemoglobin 12.1 11.5-16.0 g/dL Hematocrit 39 35-52 % Mean Corpuscular Volume 92 80-99 fL Mean Corpuscular Hemoglobin 29 25-34 pg Mean Corpuscular Hemoglobin Concent 31 L 32-36 g/dL Red Cell Distribution Width 16.7 H 10.0-14.5 % Platelet Count 234 130-400 10^3/uL Mean Platelet Volume 10.5 9.0-12.2 fL Immature Granulocyte % (Auto) 0 % Neutrophils (%) (Auto) 31 L 42-75 % Lymphocytes (%) (Auto) 57 H 12-44 % Monocytes (%) (Auto) 8 0-12 % Eosinophils (%) (Auto) 4 0-10 % Basophils (%) (Auto) 1 0-10 % Neutrophils # (Auto) 1.6 L 1.8-7.8 10^3/uL Lymphocytes # (Auto) 2.9 1.0-4.0 10^3/uL Monocytes # (Auto) 0.4 0.0-1.0 10^3/uL Eosinophils # (Auto) 0.2 0.0-0.3 10^3/uL Basophils # (Auto) 0.0 0.0-0.1 10^3/uL Immature Granulocyte # (Auto) 0.0 0.0-0.1 10^3/uL Sodium Level 139 135-145 MMOL/L Potassium Level 4.4 3.6-5.0 MMOL/L Chloride Level 109 H 98-107 MMOL/L Carbon Dioxide Level 19 L 21-32 MMOL/L Anion Gap 11 5-14 MMOL/L Blood Urea Nitrogen 9 7-18 MG/DL Creatinine 0.71 0.60-1.30 MG/DL Estimat Glomerular Filtration Rate 95 BUN/Creatinine Ratio 13 Glucose Level 93 70-105 MG/DL Calcium Level 8.6 8.5-10.1 MG/DL Corrected Calcium 9.1 8.5-10.1 MG/DL Phosphorus Level 3.3 2.3-4.7 MG/DL Magnesium Level 1.9 1.6-2.4 MG/DL Total Bilirubin 0.8 0.1-1.0 MG/DL Aspartate Amino Transf (AST/SGOT) 14 5-34 U/L Alanine Aminotransferase (ALT/SGPT) 9 0-55 U/L Alkaline Phosphatase 87 40-136 U/L Total Protein 6.1 L 6.4-8.2 GM/DL Albumin 3.4 3.2-4.5 GM/DL Results Results/Procedures Labs Laboratory Tests 04/13/22 00:28 04/13/22 03:37 04/14/22 04:17 Patient resulted labs reviewed. Imaging: Reviewed Imaging Report ANUPAM DASH MD Apr 14, 2022 09:56
[2022-04-14] MEDS ORDERED: FLEET ENEMA ADULT 1 EA BTL PR ONE (11:00)
--- NOTE | 2022-04-14 12:27 | Cardiology Progress Note ---
Subjective Date Seen by Provider: Apr 14, 2022 Time Seen by Provider: 12:25 Subjective/Events-last exam Patient was seen at bedside, laying down comfortably, feeling better. No new complaint was reported. Review of Systems General: No Chills, No Night Sweats, No Fatigue, No Malaise, No Appetite, No Other HEENT: No Head Aches, No Visual Changes, No Eye Pain, No Ear Pain, No Dysphasia, No Sinus Congestion, No Post Nasal Drip, No Sore Throat, No Other Pulmonary: No Dyspnea, No Cough, No Pleuritic Chest Pain, No Other Cardiovascular: No: Chest Pain, Palpitations, Orthopnea, Paroxysmal Noc. Dyspnea, Edema, Lt Headedness, Other Objective-Cardiology Exam Last Set of Vital Signs Vital Signs 04/14/22 04/14/22 10:00 11:00 Pulse 51 Resp 25 B/P (MAP) 143/63 Pulse Ox 98 O2 Delivery Room Air I&O Intake and Output 04/14/22 00:00 Intake Total 980 ml Balance 980 ml Intake Oral 970 ml IV Total 10 ml # Voids 5 Daily Weight Change Unsure Unsure General: Alert, Oriented X3, Cooperative HEENT: Atraumatic, PERRLA Neck: Supple, No JVD, No Thyromegaly Lungs: Clear to Auscultation, Normal Air Movement Heart: Regular Rate, Normal S1, Normal S2, No Murmurs Abdomen: Normal Bowel Sounds, Soft, No Tenderness, No Hepatosplenomegaly, No Masses Extremities: No Clubbing, No Cyanosis, No Edema, Normal Pulses, No Tenderness/Swelling Skin: No Rashes, No Breakdown, No Significant Lesion Neuro: Normal Gait, Normal Speech, Strength at 5/5 X4 Ext, Normal Tone, Sensation Intact Psych/Mental Status: Mental Status NL, Mood NL Results Lab Laboratory Tests 04/14/22 04:17 A/P-Cardiology Admission Diagnosis Chest pain Coronary artery disease Paroxysmal atrial fibrillation Hypertension Assessment/Plan Chest pain nonspecific etiology. Reporting improvement. No further episodes of chest pain. Coronary artery disease. Patient reporting that she had 2 small heart attacks in the remote past. Did not have any cardiac catheterization done in the past. Had a stress test done in December [address] Lopez reported minimal amount of apical ischemia with normal ejection fraction 72%. Cardiac catheterization was carried out on April 13, 2022 due to the active chest pain, had mild to moderate coronary artery disease nonobstructive disease. Did not require any intervention. Paroxysmal atrial fibrillation. Patient converted to sinus rhythm on Cardizem. History of paroxysmal atrial fibrillation first diagnosed at [facility] in [place] in October 2018. 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 Resolved spontaneously. History of mild bilateral carotid stenosis, ultrasound was done in October 2019. Continue to monitor Hypertension, continue to monitor blood pressure Questionable underlying sleep apnea Morbid obesity, BMI 38. TALIA ROWLAND MD Apr 14, 2022 12:26
[2022-04-14] MEDS ORDERED: FLECAINIDE 100 MG (TAMBOCOR) TAB PO SCH (12:30)
== END 2022-04-14 12:30 | disposition home or self-care (01) | DRG 287 ==
LOC: EDUNIT# 00:07 → ER 00:08 → ICU 01:35 → EDLOC 01:35
PROVIDERS: ADMIT Family Medicine; ATTEND Family Medicine
PROC: 4A023N7 Measurement of Cardiac Sampling and Pressure, Left Heart, Percutaneous Approach (ICD-10-PCS; principal; 2022-04-13)
PROC: B2111ZZ Fluoroscopy of Multiple Coronary Arteries using Low Osmolar Contrast (ICD-10-PCS; 2022-04-13)
PROC: B2151ZZ Fluoroscopy of Left Heart using Low Osmolar Contrast (ICD-10-PCS; 2022-04-13)
PROC: B3101ZZ Fluoroscopy of Thoracic Aorta using Low Osmolar Contrast (ICD-10-PCS; 2022-04-13)
DX: I48.0 Paroxysmal atrial fibrillation (principal); R07.89 Other chest pain; I10 Essential (primary) hypertension; E78.5 Hyperlipidemia, unspecified; I25.10 Atherosclerotic heart disease of native coronary artery without angina pectoris; M54.30 Sciatica, unspecified side; G62.9 Polyneuropathy, unspecified; F17.210 Nicotine dependence, cigarettes, uncomplicated; G89.29 Other chronic pain; M54.16 Radiculopathy, lumbar region; Z68.38 Body mass index [BMI] 38.0-38.9, adult; I25.2 Old myocardial infarction; E78.00 Pure hypercholesterolemia, unspecified; K21.9 Gastro-esophageal reflux disease without esophagitis; K58.9 Irritable bowel syndrome, unspecified; K57.90 Diverticulosis of intestine, part unspecified, without perforation or abscess without bleeding; E03.9 Hypothyroidism, unspecified; M06.9 Rheumatoid arthritis, unspecified; M54.9 Dorsalgia, unspecified; Z79.82 Long term (current) use of aspirin; Z79.899 Other long term (current) drug therapy; Z20.822 Contact with and (suspected) exposure to COVID-19; I65.23 Occlusion and stenosis of bilateral carotid arteries; E66.01 Morbid (severe) obesity due to excess calories
CPT/HCPCS: 36221; 36415; 71045; 78582; 80053; 80061; 80306; 80320; 81000; 82550; 82553; 83735; 83874; 83880; 84100; 84443; 84484; 85025; 85379; 85610; 85652; 85730; 86141; 87081; 87636; 93005; 93041; 93306; 93458

== ENCOUNTER 2022-05-20 15:02 | Emergency (ER) | payer MEDICARE, MEDICAID ==
[~2022-05-20] VITALS: Ht 160 cm; Wt 104.0 kg
[~2022-05-20 15:02] MED LIST changes: +CARV6.25 PO; +LOSA25TA41 PO
[2022-05-20] MEDS ORDERED: RT-ALBUTEROL/IPRATROPIUM 3 ML (DUONEB) VIAL INH ONE (15:30)
[2022-05-20] MEDS ORDERED: methylPREDNISolone 125 MG (Solu-MEDROL) VIAL IVP ONE (15:30)
--- NOTE | 2022-05-20 15:34 | ED Cough/URI ---
General Chief Complaint: COVID19 Suspect/Confirmed Stated Complaint: COVID SYMPTOMS Source: patient Exam Limitations: no limitations History of Present Illness Date Seen by Provider: May 20, 2022 Time Seen by Provider: 15:33 Initial Comments Patient is a 67-year-old female with a history of stroke, A. fib who presents to the ED for flulike symptoms. She reports symptoms of body aches chills fatigue weakness that started yesterday. Started having a productive cough of greenish sputum production. Associated shortness of breath. Start developing left-sided chest pain intermittent worse with cough and on palpation. She reports some loose stools without any blood or mucus. No vomiting. No one else at home with similar symptoms. Not up-to-date on COVID vaccines. She states she has felt warm with burning sensation in her abdomen and with urination. Denies of any visual changes, headache, neck pain, back pain, flank pain, swelling bruising or redness in the extremities. Allergies and Home Medications Allergies Coded Allergies: morphine (Verified Allergy, Unknown, 09/03/19) tramadol (Verified Allergy, Unknown, 09/03/19) Patient Home Medication List Home Medication List Reviewed: Yes Amoxicillin/Potassium Clav (Amox Tr-K Clv 875-125 mg Tab) 875 Mg-125 Mg Tablet, 1 EACH PO BID Prescribed by: MATTHEW CHRISTINE on 05/20/22 174 Aspirin (Aspirin EC) 81 Mg Tablet., 81 MG PO DAILY, (Reported) Entered as Reported by: IRAJ ROBERTS on 01/03/20 1450 Azithromycin (Azithromycin) 250 Mg Tablet, 250 MG PO UD Prescribed by: MATTHEW CHRISTINE on 05/20/22 1746 Carvedilol (Coreg) 6.25 Mg Tablet, 6.25 MG PO BID, (Reported) Entered as Reported by: SIMEON FISCHER on 04/13/22 0737 Duloxetine HCl (Duloxetine HCl) 60 Mg Capsule., 60 MG PO DAILY, (Reported) Entered as Reported by: WILLIAM FRANCOIS on 12/13/20 1727 Gabapentin (Gabapentin) 300 Mg Capsule, 300 MG PO TID, (Reported) Entered as Reported by: IRAJ ROBERTS on 01/03/20 1450 Hydrocodone Bit/Acetaminophen (HYDROcodone/APAP 7.5/325 TAB) 1 Each Tablet, 1 TAB PO Q6H PRN for PAIN-MODERATE (5-7), (Reported) Entered as Reported by: IRAJ ROBERTS on 01/03/20 1450 Hydrocodone/Acetaminophen (Hydrocodone-Acetamin 5-325 mg) 5 Mg-325 Mg Tablet, 1 TAB PO Q4H PRN for PAIN-MODERATE (5-7) Prescribed by: MATTHEW CHRISTINE on 05/20/22 1746 Isosorbide Mononitrate (Isosorbide Mononitrate ER) 30 Mg Tab.er.24h, 30 MG PO DAILY, (Reported) Entered as Reported by: IRAJ ROBERTS on 01/03/20 1450 Losartan Potassium (Losartan Potassium) 25 Mg Tablet, 25 MG PO DAILY Prescribed by: FRANCIS JACOBO on 04/14/22 0954 Pantoprazole Sodium (Pantoprazole Sodium) 20 Mg Tablet.dr, 20 MG PO DAILY, (Reported) Entered as Reported by: WILLIAM FRANCOIS on 12/13/20 1727 Rivaroxaban (Xarelto) 20 Mg Tablet, 20 MG PO DAILY, (Reported) Entered as Reported by: IRAJ ROBERTS on 01/03/20 1450 Rosuvastatin Calcium (Rosuvastatin Calcium) 5 Mg Tablet, 5 MG PO DAILY, (Reported) Entered as Reported by: IRAJ ROBERTS on 01/03/20 1450 Discontinued Medications Amoxicillin/Potassium Clav (Amox Tr-K Clv 875-125 mg Tab) 875 Mg-125 Mg Tablet, 1 EACH PO BID Prescribed by: MATTHEW CHRISTINE on 05/20/22 1726 Azithromycin (Azithromycin) 250 Mg Tablet, 250 MG PO UD Prescribed by: MATTHEW CHRISTINE on 05/20/22 1726 Azithromycin (Azithromycin) 250 Mg Tablet, 250 MG PO UD Prescribed by: MATTHEW CHRISTINE on 05/20/22 1731 Hydrocodone/Acetaminophen (Hydrocodone-Acetamin 5-325 mg) 5 Mg-325 Mg Tablet, 1 TAB PO Q4H PRN for PAIN-MODERATE (5-7) Prescribed by: MATTHEW CHRISTINE on 05/20/22 1726 Review of Systems Review of Systems Constitutional: chills, fever, malaise, weakness EENTM: No hearing loss, No ear pain, No blurred vision, No hoarseness, No mouth pain, No mouth swelling Respiratory: cough; No dyspnea on exertion; short of breath Cardiovascular: chest pain Gastrointestinal: No abdominal pain; diarrhea, nausea; No vomiting Genitourinary: No decreased output Musculoskeletal: No back pain All Other Systems Reviewed Negative Unless Noted: Yes Past Sxqgwre-Hfczbs-Dwmzlj Hx Immunizations Up To Date Tetanus Booster (TDap): Unknown Seasonal Allergies Seasonal Allergies: No Past Medical History Surgeries: Yes Abdominal, Appendectomy, Gallbladder, 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, Tubal Ligation Respiratory: No Cardiac: Yes Atrial Fibrillation, Coronary Artery Disease, Heart Attack, High Cholesterol, Hypertension 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) Neuropathy [employer] H[employer] History: 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, Tubal Ligation, Menopausal Genitourinary: No Gastrointestinal: Yes (SBO 15 years ago;S/P APPY, FLOR) Gastroesophageal Reflux, Obstructive Bowel, Diverticulosis, Chronic Diarrhea, Esophagitis, Hiatal Hernia, Gall Bladder Disease Musculoskeletal: Yes Degenerate Disk Disease, Rheumatoid Arthritis, Chronic Back Pain Endocrine: Yes (OBESITY) Hypothyroidsim HEENT: No Loss of Vision: Denies Hearing Impairment: Denies Cancer: No Psychosocial: No Integumentary: Yes (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 GARRIDO -DX HIATAL HERNIA, ESOPHAGITIS. STRESS TEST 12/31/[address] GRIJALVA: CONCLUSIONS: 1. This study suggests a minimal amount of apical ischemia. 2. Normal regional wall motion. 3. Normal global left ventricular systolic function with ejection fraction of 72%. Physical Exam Vital Signs - First Documented 05/20/22 15:09 Temp 37.1 Pulse 53 Resp 20 B/P (MAP) 172/83 (112) Pulse Ox 97 Capillary Refill : Height: '" Weight: lbs. oz. kg; 38.38 BMI Method: General Appearance: WD/WN, no apparent distress Eyes: Bilateral Eye Normal Inspection, Bilateral Eye PERRL, Bilateral Eye EOMI, Bilateral Eye Abnormal EOM HEENT: PERRL/EOMI, normal ENT inspection, TMs normal, pharynx normal Neck: non-tender, full range of motion, supple, normal inspection Respiratory: chest non-tender, lungs clear, normal breath sounds, no respiratory distress, no accessory muscle use Cardiovascular: regular rate, rhythm, no edema, no gallop, no JVD Gastrointestinal: normal bowel sounds, non tender, soft, no organomegaly, no pulsatile mass Extremities: normal range of motion, non-tender, normal inspection, no pedal edema 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, no motor/sensory deficits, alert, normal mood/affect, oriented x 3 Skin: normal color, warm/dry Progress/Results/Core Measures Suspected Sepsis SIRS Temperature: Pulse: Respiratory Rate: Laboratory Tests 05/20/22 16:25: White Blood Count 6.1 Blood Pressure / Mean: Laboratory Tests 05/20/22 16:25: Creatinine 0.74, Platelet Count 271, Total Bilirubin 0.8 Results/Orders Lab Results Laboratory Tests Test 05/20/22 15:45 05/20/22 15:51 05/20/22 16:25 Range/Units Influenza Type A (RT-PCR) Not Detected Not Detecte Influenza Type B (RT-PCR) Not Detected Not Detecte SARS-CoV-2 RNA (RT-PCR) Not Detected Not Detecte Urine Color YELLOW Urine Clarity CLEAR Urine pH 6.0 5-9 Urine Specific [place] 1.020 1.016-1.022 Urine Protein NEGATIVE NEGATIVE Urine Glucose (UA) NEGATIVE NEGATIVE Urine Ketones NEGATIVE NEGATIVE Urine Nitrite NEGATIVE NEGATIVE Urine Bilirubin NEGATIVE NEGATIVE Urine Urobilinogen 0.2 < = 1.0 MG/DL Urine Leukocyte Esterase NEGATIVE NEGATIVE Urine RBC (Auto) NEGATIVE NEGATIVE Urine RBC RARE /HPF Urine WBC RARE /HPF Urine Squamous Epithelial Cells RARE /HPF Urine Crystals NONE /LPF Urine Bacteria NEGATIVE /HPF Urine Casts NONE /LPF Urine Mucus SMALL H /LPF Urine Culture Indicated NO White Blood Count 6.1 4.3-11.0 10^3/uL Red Blood Count 4.51 3.80-5.11 10^6/uL Hemoglobin 13.2 11.5-16.0 g/dL Hematocrit 41 35-52 % Mean Corpuscular Volume 91 80-99 fL Mean Corpuscular Hemoglobin 29 25-34 pg Mean Corpuscular Hemoglobin Concent 32 32-36 g/dL Red Cell Distribution Width 16.7 H 10.0-14.5 % Platelet Count 271 130-400 10^3/uL Mean Platelet Volume 10.5 9.0-12.2 fL Immature Granulocyte % (Auto) 0 % Neutrophils (%) (Auto) 36 L 42-75 % Lymphocytes (%) (Auto) 53 H 12-44 % Monocytes (%) (Auto) 8 0-12 % Eosinophils (%) (Auto) 3 0-10 % Basophils (%) (Auto) 1 0-10 % Neutrophils # (Auto) 2.2 1.8-7.8 10^3/uL Lymphocytes # (Auto) 3.2 1.0-4.0 10^3/uL Monocytes # (Auto) 0.5 0.0-1.0 10^3/uL Eosinophils # (Auto) 0.2 0.0-0.3 10^3/uL Basophils # (Auto) 0.0 0.0-0.1 10^3/uL Immature Granulocyte # (Auto) 0.0 0.0-0.1 10^3/uL Sodium Level 141 135-145 MMOL/L Potassium Level 4.0 3.6-5.0 MMOL/L Chloride Level 108 H 98-107 MMOL/L Carbon Dioxide Level 22 21-32 MMOL/L Anion Gap 11 5-14 MMOL/L Blood Urea Nitrogen 7 7-18 MG/DL Creatinine 0.74 0.60-1.30 MG/DL Estimat Glomerular Filtration Rate 90 BUN/Creatinine Ratio 9 Glucose Level 92 70-105 MG/DL Calcium Level 9.1 8.5-10.1 MG/DL Corrected Calcium 9.2 8.5-10.1 MG/DL Total Bilirubin 0.8 0.1-1.0 MG/DL Aspartate Amino Transf (AST/SGOT) 13 5-34 U/L Alanine Aminotransferase (ALT/SGPT) 10 0-55 U/L Alkaline Phosphatase 110 40-136 U/L Troponin I < 0.028 <0.028 NG/ML B-Type Natriuretic Peptide 35.9 <100.0 PG/ML Total Protein 6.9 6.4-8.2 GM/DL Albumin 3.9 3.2-4.5 GM/DL Lipase 71 8-78 U/L My Orders Orders - REJI ESTRADA Catina PA Ekg Tracing (05/20/22 15:26) Cbc With Automated Diff (05/20/22 15:26) Comprehensive Metabolic Panel (05/20/22 15:26) Lipase (05/20/22 15:26) Troponin I [place] (05/20/22 15:) Bnp Aarti (05/20/22 15:) Covid 19 Inhouse Test (05/20/22 15:) Influenza A And B By Pcr (05/20/22 15:26) Chest 1 View, Ap/Pa Only (05/20/22 15:) Methylprednisolone Sod Succ (Solu-Medrol (05/20/22 15:30) Albuterol/Ipra Inhalation Soln (Duoneb I (05/20/22 15:30) Svn Small Volume Nebulizer (05/20/22 15:26) Urinalysis (05/20/22 15:34) Hydrocodone/Apap 5/325 Tablet (Lortab 5 (05/20/22 17:30) Medications Given in ED Current Medications Medications Dose Ordered Sig/Willian Route Start Time Stop Time Status Last Admin Dose Admin Acetaminophen/ Hydrocodone Bitart 1 ea ONCE ONCE PO 05/20/22 17:30 05/20/22 17:31 DC 05/20/22 17:41 1 EA Albuterol/ Ipratropium 3 ml ONCE ONCE INH 05/20/22 15:30 05/20/22 15:31 DC 05/20/22 16:53 3 ML Methylprednisolone Sodium Succinate 125 mg ONCE ONCE IVP 05/20/22 15:30 05/20/22 15:31 DC 05/20/22 16:08 125 MG Vital Signs/I&O 05/20/22 05/20/22 15:09 17:47 Temp 37.1 Pulse 53 50 Resp 20 B/P (MAP) 172/83 (112) 159/83 Pulse Ox 97 98 Capillary Refill : ECG Comment Sinus bradycardia, 48 bpm, QRS duration 90 MS, QTC 421 MS Departure Communication (PCP) Patient with flulike symptoms. Left-sided chest discomfort on palpation. EKG normal sinus rhythm. Cardiac work-up unremarkable. Appears to be more pleuritic chest pain. She was slightly bradycardic. Hypertensive but improved without intervention. Lab work was otherwise unremarkable with normal white blood count, kidney function liver function. Chest x-ray concerning for early pneumonia with potential basilar infiltrate. Cardiac enlargement without failure. COVID and influenza negative. She does not require oxygen. Patient is not tachycardic or hypoxic. Due to potential pneumonia and her core morbidities patient will be discharged with Augmentin and azithromycin. Recommend continue rest, Tylenol at home. Continue monitoring blood pressure. Follow-up with your PCP in 2 to 3 days for reevaluation. If any worsening symptoms return back to ED for further evaluation. Patient is bradycardic but asymptomatic. Impression Primary Impression: Pneumonia Disposition: HOME, SELF-CARE Condition: Stable Departure-Patient Inst. Decision time for Depature: 17:24 Referrals: JOHN SPENCER (PCP) Primary Care Physician [facility]JOE (Family) Primary Care Physician Patient Instructions: Pneumonia, Adult ED Add. Discharge Instructions: If any worsening symptoms over the next 2 or 3 days return back to ED for fur ther evaluation. All discharge instructions reviewed with patient and/or family. Voiced understanding. Scripts Hydrocodone/Acetaminophen (Hydrocodone-Acetamin 5-325 mg) 5 Mg-325 Mg Tablet 1 TAB PO Q4H PRN for PAIN-MODERATE (5-7), #6 TAB Prov: REJI ESTRADA 05/20/22 Amoxicillin/Potassium Clav (Amox Tr-K Clv 875-125 mg Tab) 875 Mg-125 Mg Tablet 1 EACH PO BID for 7 Days, #14 TAB Prov: REJI ESTRADA 05/20/22 Azithromycin (Azithromycin) 250 Mg Tablet 250 MG PO UD, #6 TAB TAKE 2 TABLETS ON DAY ONE THEN TAKE 1 TABLET DAILY FOR FOUR MORE DAYS Prov: REJI ESTRADA 05/20/22 REJI ESTRADA May 20, 2022 15:34
[2022-05-20 16:00] LABS: BILIRUBIN,URINE NEGATIVE (NEGATIVE); CLARITY,URINE CLEAR; COLOR,URINE YELLOW; GLUCOSE, URINE (UA) NEGATIVE (NEGATIVE); KETONES,URINE NEGATIVE (NEGATIVE); LEUKOCYTE ESTERASE ,URINE NEGATIVE (NEGATIVE); NITRITE,URINE NEGATIVE (NEGATIVE); PROTEIN,URINE NEGATIVE (NEGATIVE)
[2022-05-20 16:41] LABS: BACTERIA,URINE NEGATIVE /HPF; RBC,URINE RARE /HPF; SQUAMOUS EPITHELIAL CELL,UR RARE /HPF; WBC,URINE RARE /HPF
[2022-05-20 16:44] LABS: BASOPHILS % (AUTO) 1 % (0-10); EOSINOPHILS # (AUTO) 0.2 10^3/uL (0.0-0.3); EOSINOPHILS % (AUTO) 3 % (0-10); HEMATOCRIT 41 % (35-52); HEMOGLOBIN 13.2 g/dL (11.5-16.0); LYMPHOCYTES # (AUTO) 3.2 10^3/uL (1.0-4.0); LYMPHOCYTES % (AUTO) 53 % (12-44); MEAN CORPUSCULAR HEMOGLOBIN 29 pg (25-34); MEAN CORPUSCULAR HGB CONC 32 g/dL (32-36); MEAN CORPUSCULAR VOLUME 91 fL (80-99); MEAN PLATELET VOLUME 10.5 fL (9.0-12.2); MONOCYTES # (AUTO) 0.5 10^3/uL (0.0-1.0); MONOCYTES % (AUTO) 8 % (0-12); NEUTROPHILS # (AUTO) 2.2 10^3/uL (1.8-7.8); NEUTROPHILS % (AUTO) 36 % (42-75); PLATELET COUNT 271 10^3/uL (130-400); WHITE BLOOD COUNT 6.1 10^3/uL (4.3-11.0)
[2022-05-20 16:59] LABS: ALBUMIN 3.9 GM/DL (3.2-4.5); CHLORIDE 108 MMOL/L (98-107); SODIUM 141 MMOL/L (135-145)
[2022-05-20 17:00] LABS: CALCIUM 9.1 MG/DL (8.5-10.1)
[2022-05-20 17:01] LABS: GLUCOSE 92 MG/DL (70-105); TOTAL PROTEIN 6.9 GM/DL (6.4-8.2)
[2022-05-20 17:02] LABS: CARBON DIOXIDE 22 MMOL/L (21-32)
[2022-05-20 17:03] LABS: BILIRUBIN,TOTAL 0.8 MG/DL (0.1-1.0)
[2022-05-20 17:04] LABS: ALKALINE PHOSPHATASE 110 U/L (40-136)
[2022-05-20 17:05] LABS: CREATININE SERUM 0.74 MG/DL (0.60-1.30); GFR ESTIMATED 90
[2022-05-20 17:06] LABS: BUN/CREATININE RATIO 9
--- NOTE | 2022-05-20 17:06 | Diagnostic Imaging Report ---
INDICATION: Chest pain with cough x2 days, fever, COVID symptoms. TECHNIQUE: Single-view chest at 05:02 p.m. CORRELATION STUDY: 04/13/2022. FINDINGS: Heart size is enlarged but stable. Vasculature is within normal limits. Faint increased density at both lung bases again demonstrated, may be overlapping summation shadows with possibility of small basilar infiltrate not excluded. IMPRESSION: 1. Question minimal basilar infiltrate. 2. Cardiac enlargement without failure. Dictated by: Dictated on workstation # [id number]
[2022-05-20 17:08] LABS: ALANINE AMINOTRANSFERASE 10 U/L (0-55); LIPASE 71 U/L (8-78)
[2022-05-20] MEDS ORDERED: AZIT250T12 PO ×3 (17:26→17:46)
[2022-05-20] MEDS ORDERED: AMOX1TAB12 PO ×2 (17:26→17:46)
[2022-05-20] MEDS ORDERED: ACHD5005 PO ×2 (17:26→17:46)
[2022-05-20] MEDS ORDERED: HYDROcodone/APAP 5 MG/325 MG (LORTAB) TAB PO ONE (17:30)
[2022-05-20 17:47] VITALS: BP 159/83
== END 2022-05-20 17:52 | disposition home or self-care (01) ==
LOC: EDUNIT# 15:02 → ER 15:03
DX: J18.9 Pneumonia, unspecified organism (principal); E66.9 Obesity, unspecified; Z68.38 Body mass index [BMI] 38.0-38.9, adult; Z20.822 Contact with and (suspected) exposure to COVID-19
CPT/HCPCS: 36415; 71045; 80053; 81000; 83690; 83880; 84484; 85025; 87636; 93005

== ENCOUNTER 2022-07-31 07:46 | Emergency (ER) | payer MEDICARE, MEDICAID ==
[~2022-07-31] VITALS: Ht 160 cm; Wt 94.0 kg
[~2022-07-31 07:46] MED LIST changes: +ACHD5005 PO; +AMOX1TAB12 PO; +AZIT250T12 PO
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
[2022-07-31] MEDS ORDERED: KETOROLAC 30 MG/ML VIAL IM ONE (08:45)
[2022-07-31] MEDS ORDERED: ORPHENADRINE 60 MG/2 ML (NORFLEX) AMP (ED ONLY) IM ONE (08:45)
[2022-07-31] MEDS ORDERED: HYDROcodone/APAP 5 MG/325 MG (LORTAB) TAB PO ONE (08:45)
[2022-07-31] MEDS ORDERED: ACHD5005 PO ×2 (08:58→09:07)
[2022-07-31] MEDS ORDERED: METH-732 PO (09:07)
[2022-07-31 09:35] VITALS: BP 165/78
== END 2022-07-31 09:34 | disposition home or self-care (01) ==
LOC: EDUNIT# 07:46 → ER 07:47
DX: M54.6 Pain in thoracic spine (principal); G89.29 Other chronic pain; F17.210 Nicotine dependence, cigarettes, uncomplicated; Z87.39 Personal history of other diseases of the musculoskeletal system and connective tissue; Z28.310 Unvaccinated for COVID-19
CPT/HCPCS: 99284

== ENCOUNTER 2022-08-08 20:59 | Emergency (ER) | payer MEDICARE, MEDICAID ==
[~2022-08-08 20:59] MED LIST changes: +METH-732 PO
[2022-08-08] MEDS ORDERED: ORPHENADRINE 60 MG/2 ML (NORFLEX) AMP (ED ONLY) IM ONE (21:30)
[2022-08-08] MEDS ORDERED: HYDROcodone/APAP 5 MG/325 MG (LORTAB) TAB PO ONE (21:30)
--- NOTE | 2022-08-08 21:30 | ED Back Pain ---
General Chief Complaint: Back Problems Stated Complaint: BACK PAIN Nursing Triage Note: PT ARRIVAL TO ER [facility]IA [facility] WITH COMPLAINT OF BACK PAIN. PAIN TO LOWER BACK AND STATES MOVING UP AND DOWN INTO LEGS. PAIN IS SHARP STABBING PAIN AT 10/10. PT DENIES TRAUMA. PT DOES HAVE PINCHED NERVES IN LOWER BACK PER. Source of Information: Patient Exam Limitations: No Limitations History of Present Illness Date Seen by Provider: Aug 08, 2022 Time Seen by Provider: 21:12 Initial Comments Patient to the ER by EMS from home with chief complaint of couple hours ago she started having a sharp onset of her chronic mid to low back midline and bilateral back pain. No trauma or falls. Patient states she has problems with pinched nerves in her back. She rates it as a 10 out of 10 and is in constant movement. She took Tylenol and Robaxin at 1500 and states that this has not helped yet. She states morphine causes a red rash. She is a difficult historian. She denies dysuria fevers or chills. EMS has not administered anything by the time they brought her here. Allergies and Home Medications Allergies Coded Allergies: morphine (Verified Allergy, Unknown, 09/03/19) tramadol (Verified Allergy, Unknown, 09/03/19) Patient Home Medication List Home Medication List Reviewed: Yes Amoxicillin/Potassium Clav (Amox Tr-K Clv 875-125 mg Tab) 875 Mg-125 Mg Tablet, 1 EACH PO BID Prescribed by: MATTHEW CHRISTINE on 05/20/221745 Aspirin (Aspirin EC) 81 Mg Tablet., 81 MG PO DAILY, (Reported) Entered as Reported by: IRAJ ROBERTS on 01/03/20 1450 Azithromycin (Azithromycin) 250 Mg Tablet, 250 MG PO UD Prescribed by: MATTHEW CHRISTINE on 05/20/22 1746 Carvedilol (Coreg) 6.25 Mg Tablet, 6.25 MG PO BID, (Reported) Entered as Reported by: SIMEON FISCHER on 04/13/22 0737 Duloxetine HCl (Duloxetine HCl) 60 Mg Capsule.dr, 60 MG PO DAILY, (Reported) Entered as Reported by: WILLIAM FRANCOIS on 12/13/20 1727 Duloxetine HCl (Duloxetine HCl) 60 Mg Capsule., 60 MG PO DAILY Prescribed by: JANES OSHEA on 08/09/22 0116 Gabapentin (Gabapentin) 300 Mg Capsule, 300 MG PO TID, (Reported) Entered as Reported by: IRAJ ROBERTS on 01/03/20 1450 Hydrocodone Bit/Acetaminophen (HYDROcodone/APAP 7.5/325 TAB) 1 Each Tablet, 1 TAB PO Q6H PRN for PAIN-MODERATE (5-7), (Reported) Entered as Reported by: IRAJ ROBERTS on 01/03/20 1450 Hydrocodone/Acetaminophen (Hydrocodone-Acetamin 5-325 mg) 5 Mg-325 Mg Tablet, 1 TAB PO Q4H PRN for PAIN-MODERATE (5-7) Prescribed by: MATTHEW CHRISTINE on 05/20/22 1746 Hydrocodone/Acetaminophen (Hydrocodone-Acetamin 5-325 mg) 5 Mg-325 Mg Tablet, 1 TAB PO Q6H PRN for PAIN-MODERATE (5-7) Prescribed by: CHARISSE LEHMAN on 07/31/22 0907 Hydrocodone/Acetaminophen (Hydrocodone-Acetamin 7.5-325) 7.5 Mg-325 Mg Tablet, 1 EACH PO Q6H PRN for pain Prescribed by: JANES OSHEA on 08/08/22 2226 Isosorbide Mononitrate (Isosorbide Mononitrate ER) 30 Mg Tab.er.24h, 30 MG PO DAILY, (Reported) Entered as Reported by: IRAJ ROBERTS on 01/03/20 1450 Losartan Potassium (Losartan Potassium) 25 Mg Tablet, 25 MG PO DAILY Prescribed by: FRANCIS JACOBO on 04/14/22 0954 Methocarbamol (Methocarbamol) 750 Mg Tablet, 750 MG PO Q6-8HR Prescribed by: CHARISSE LEHMAN on 07/31/22 0907 Pantoprazole Sodium (Pantoprazole Sodium) 20 Mg Tablet.dr, 20 MG PO DAILY, (Reported) Entered as Reported by: WILLIAM FRANCOIS on 12/13/20 1727 Rivaroxaban (Xarelto) 20 Mg Tablet, 20 MG PO DAILY, (Reported) Entered as Reported by: IRAJ ROBERTS on 01/03/20 1450 Rosuvastatin Calcium (Rosuvastatin Calcium) 5 Mg Tablet, 5 MG PO DAILY, (Reported) Entered as Reported by: IRAJ ROBERTS on 01/03/20 1450 Rosuvastatin Calcium (Rosuvastatin Calcium) 5 Mg Tablet, 5 MG PO HS Prescribed by: JANES OSHEA on 08/09/22 0116 Review of Systems Constitutional: No chills, No diaphoresis EENTM: No ear discharge, No ear pain Respiratory: No cough, No short of breath Cardiovascular: No chest pain, No palpitations Gastrointestinal: No abdominal pain, No constipation, No diarrhea Genitourinary: No discharge, No dysuria : No Musculoskeletal: back pain; No joint pain All Other Systems Reviewed Negative Unless Noted: Yes Past Nysdqak-Xhcazs-Vdhhyi Hx Patient Social History Tobacco Use?: No Use of E-Cig and/or Vaping dev: No Substance use?: No Alcohol Use?: No Pt feels they are or have been: No Immunizations Up To Date Tetanus Booster (TDap): Unknown Influenza Vaccine Up-to-Date: No; Not Current Seasonal Allergies Seasonal Allergies: No Past Medical History Surgeries: Yes Abdominal, Appendectomy, Gallbladder, 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, Tubal Ligation Respiratory: No Cardiac: Yes Atrial Fibrillation, Coronary Artery Disease, Heart Attack, High Cholesterol, Hypertension 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) 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, Tubal Ligation, Menopausal Genitourinary: No Gastrointestinal: Yes (SBO 15 years ago;S/P APPY, FLOR) Gastroesophageal Reflux, Obstructive Bowel, Diverticulosis, Chronic Diarrhea, Esophagitis, Hiatal Hernia, Gall Bladder Disease Musculoskeletal: Yes Degenerate Disk Disease, Rheumatoid Arthritis, Chronic Back Pain Endocrine: Yes (OBESITY) Hypothyroidsim HEENT: No Loss of Vision: Denies Hearing Impairment: Denies Cancer: No Psychosocial: No Integumentary: Yes (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 GARRIDO -DX HIATAL HERNIA, ESOPHAGITIS. STRESS TEST 12/31/[address] GRIJALVA: CONCLUSIONS: 1. This study suggests a minimal amount of apical ischemia. 2. Normal regional wall motion. 3. Normal global left ventricular systolic function with ejection fraction of 72%. Physical Exam Vital Signs Vital Signs - First Documented 08/08/22 21:00 Pulse 75 Resp 22 B/P (MAP) 156/74 (101) Pulse Ox 97 Capillary Refill : Height, Weight, BMI Height: '" Weight: lbs. oz. kg; 36.00 BMI Method: General Appearance: No Apparent Distress, WD/WN HEENT: PERRL/EOMI, TMs Normal, Normal ENT Inspection, Pharynx Normal, Moist Mucous Membranes Neck: Full Range of Motion, Normal Inspection, Non Tender Cardiovascular: Regular Rate, Rhythm, No Edema, Normal Peripheral Pulses Respiratory: Chest Non Tender, Lungs Clear, Normal Breath Sounds Peripheral Pulses: 2+ Radial Pulses (R), 2+ Radial Pulses (L) Gastrointestinal: Normal Bowel Sounds, Non Tender, Soft Back: Normal Inspection, Muscle Spasm (Bilateral lower thoracic upper lumbar spine), Vertebral Tenderness (Exquisite tenderness causing her to jump off the bed even at light brushing of the skin. There is no step-off, crepitus, deformity, bruising or out external marking.) Extremity: Normal Capillary Refill, Normal Inspection Progress/Results/Core Measures Results/Orders My Orders Orders - JANES OSHEA Hydrocodone/Apap 5/325 Tablet (Lortab 5 (08/08/22 21:30) Orphenadrine Inj (Ed Only) (Norflex Inje (08/08/22 21:30) Hydrocodone/Apap 5/325 Tablet (Lortab 5 (08/08/22 21:36) Hydrocodone/Apap 10/325 Tablet (Lortab 1 (08/08/22 22:30) Methocarbamol Tablet (Robaxin Tablet) (08/08/22 22:30) Lorazepam Tablet (Ativan Tablet) (08/08/22 23:40) Ua Culture If Indicated (08/08/22 23:40) Medications Given in ED Current Medications Medications Dose Ordered Sig/Willian Route Start Time Stop Time Status Last Admin Dose Admin Acetaminophen/ Hydrocodone Bitart 1 ea ONCE ONCE PO 08/08/22 22:30 08/08/22 22:31 DC 08/08/22 22:54 1 EA Acetaminophen/ Hydrocodone Bitart 2 ea ONCE ONCE PO 08/08/22 21:30 08/08/22 21:31 DC 08/08/22 21:36 2 EA Methocarbamol 750 mg ONCE ONCE PO 08/08/22 22:30 08/08/22 22:31 DC 08/08/22 22:54 750 MG Orphenadrine Citrate 60 mg ONCE ONCE IM 08/08/22 21:30 08/08/22 21:31 DC 08/08/22 21:36 60 MG Vital Signs/I&O 08/08/22 21:00 Pulse 75 Resp 22 B/P (MAP) 156/74 (101) Pulse Ox 97 Blood Pressure Mean: 101 Progress Progress Note #1: Time: 21:28 Progress Note The patient presents for an acute exacerbation of chronic back pain without trauma. She is howling and writhing around in bed. Kidney stone could be part of her symptoms so we will check some urine. She took her Robaxin 6 hours ago. We will give her some Norflex and a couple tablets of hydrocodone. She is on Xarelto so NSAIDs are not a good choice right now. We will see if we can get her pain down enough to do a more thorough exam and history. K Lucas was consulted. The patient had a clear history of receiving 120 tablets of hydrocodone 7.5 x [address] Mayers for the past year with the last refill being June 20 little over a month ago. Once her pain is under better control we will query why she is no longer receiving narcotic pain medication from her primary care provider. Progress Note #2: Time: 22:20 Progress Note Discussed the case with the patient. She states she was getting her prescription filled by her doctor in [place], [place] Dr. Urena up until June when they stated that she would need to return to [place], [place] if they wanted her to continue getting her medications through them. She is here taking care of her son and helping him get moved back from [place] to [place]. She arrived here in March. She states that she called [facility] to get established just for a month or so to get her pain medication until she returned to [place], [place] and they told her that since she was getting prescriptions from the ER that they would not be filling her pain medications. She has family coming up to take her home to [place] to see her doctor tomorrow. She did get some relief from the hydrocodone and Norflex. She is only on 750 mg Robaxin twice a day. We are going to go ahead and encourage her to take a second dose if she is not seeing improvement an hour after the first dose. We are also going to provide her with some more [place] and Robaxin for sending her home. Finally we will provide her with 1 day prescription of her chronic hydrocodone to get her back to [place] to her appo intment. Patient is okay with this plan but does not feel like her pain is in any better control. She is wailing, throwing herself back and forth and tearful. We discussed with her that she may have an alternative diagnosis such as a UTI but we would need a urine sample in order to prove that. Kidney stone would also be possible or more likely she is having a panic attack. She has been provided with some water to drink to try and produce a urine specimen and we will give her a milligram of Ativan. Progress Note #3: Time: 01:19 Progress Note Patient was not getting good control of her pain until after we gave her some Ativan to control her panic attack. She is now no longer having any pain. She states she is now ready to go home. We did refill her statin and duloxetine to help carry her over until she gets to [place], [place]. Patient states she does not think she will be able to produce a urine specimen and since we now have control of her symptoms it is not as necessary to look for these alternative diagnoses. The patient did apparently have a panic attack complicating her back pain. Departure Impression Primary Impression: Back pain Qualified Codes: M54.50 - Low back pain, unspecified Additional Impressions: Back muscle spasm Panic attack as reaction to stress Disposition: 01 HOME, SELF-CARE Condition: Stable Departure-Patient Inst. Decision time for Depature: 22:23 Referrals: JOHN SPENCER (PCP) Primary Care Physician [facility]JO[facility] (Family) Primary Care Physician Patient Instructions: Low Back Pain (DC), Muscle Spasms (DC) Add. Discharge Instructions: Hydrocodone 7.5 mg every 6 hours as needed for severe breakthrough pain. Make follow-up appointment with your primary care doctor in [place] to manage your chronic pain. If your Robaxin does not help with the muscle spasms after 1 hour and then you may take a second tablet of 750 mg. This will cause drowsiness and increase your risk of falls. Drink plenty of fluids and use MiraLAX or similar laxatives to stay regular when using hydrocodone. All discharge instructions reviewed with patient and/or family. Voiced und erstanding. Scripts Duloxetine HCl (Duloxetine HCl) 60 Mg Capsule.dr 60 MG PO DAILY for 14 Days, #14 CAP 0 Refills Prov: JANES OSHEA 08/09/22 Rosuvastatin Calcium (Rosuvastatin Calcium) 5 Mg Tablet 5 MG PO HS for 14 Days, #14 TAB 0 Refills Prov: JANES OSHEA 08/09/22 Hydrocodone/Acetaminophen (Hydrocodone-Acetamin 7.5-325) 7.5 Mg-325 Mg Tablet 1 EACH PO Q6H PRN for pain, #8 TAB 0 Refills Prov: JANES OSHEA 08/08/22 JANES OSHEA Aug 08, 2022 21:30
[2022-08-08] MEDS ORDERED: HYDROcodone/APAP 5 MG/325 MG (LORTAB) TAB ONE (21:36)
[2022-08-08] MEDS ORDERED: HYDR-3817 PO (22:26)
[2022-08-08] MEDS ORDERED: METHOCARBAMOL 750 MG (ROBAXIN) TAB PO ONE (22:30)
[2022-08-08] MEDS ORDERED: LORazepam 0.5 MG (ATIVAN) TABLET PO STA (23:40)
[2022-08-09] MEDS ORDERED: DULO60CA59 PO (01:16)
[2022-08-09] MEDS ORDERED: ROSU5TAB13 PO (01:16)
[2022-08-09 01:24] VITALS: BP 148/84
== END 2022-08-09 01:24 | disposition home or self-care (01) ==
LOC: EDUNIT# 20:59 → ER 21:01
DX: F43.0 Acute stress reaction (principal); M62.830 Muscle spasm of back; E66.9 Obesity, unspecified; Z68.36 Body mass index [BMI] 36.0-36.9, adult; Z28.310 Unvaccinated for COVID-19
CPT/HCPCS: 99284